=== PATIENT | female | born 1965 | race Caucasian/White ===

== ENCOUNTER 2019-12-15 10:11 | Emergency (ER) | payer OTHER, SELFPAY ==
--- NOTE | 2019-12-15 10:34 | XR_ITS ---
EXAMINATION: XR SHOULDER, RIGHT CLINICAL INFORMATION: Pain COMPARISON: None TECHNIQUE: Three views of the right shoulder. FINDINGS: There is no evidence of acute fracture or dislocation of the right shoulder. No evidence of calcific tendinitis. Glenohumeral joint appears unremarkable. No widening of the coracoid clavicular space. XR/XR shoulder RT min 2V IMPRESSION: No bony abnormality of the right shoulder identified.
[2019-12-15 10:47] VITALS: BP 143/79; PULSE 78; RESP 18; TEMP 36.7; O2SAT 100; BMI 22.1
[2019-12-15] MEDS: Ibuprofen 800 MG TABLET PO (10:55)
[2019-12-15] MEDS: diazePAM 5 MG TABLET PO (10:55)
--- NOTE | 2019-12-15 11:31 | ED.EXTPRO ---
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 States pain is alleviated with holding still. Denies any redness, rash, swelling, fever, radiation of the pain. No alteration in sensation and pain in the hand. Onset (ago): day(s) Pain Consistency: constant Location: right and upper extremity Radiation: none Relieving factors: cold therapy and immobilization Associated symptoms: denies other symptoms Context: recent travel Related Data Previous Rx's Medication Instructions Recorded cyclobenzaprine 10 mg PO TID PRN #20 tab 12/15/19 ibuprofen 800 mg PO Q8H PRN #30 tab 12/15/19 Allergies Allergy/AdvReac Type Severity Reaction Status Date / Time midazolam [From VERSED] Allergy Intermediate HYPERACTIVITY, Verified 12/15/19 10:13 increased hyperactivity hydromorphone [From Dilaudid] Allergy Unknown ITCHING Verified 12/15/19 10:13 Review of Systems Review of Systems: Constitutional: No Weight loss, No Fever, No Chills, No Night Sweats, No Fatigue, No Malaise ENT/Mouth: No Hearing loss, No Ear Pain, No Nasal Congestion Eyes: No Eye Pain, No Swelling Cardiovascular: No Chest Pain, No SOB, No Dyspnea on Exertion, No Orthopnea, No Edema, No Palpitations Respiratory: No Cough, No Sputum, No Wheezing, No Smoke Exposure, No Dyspnea Gastrointestinal: No Nausea, No Vomiting, No Diarrhea Genitourinary: no irregular bleeding, No Dysuria, No Urinary Frequency Skin: No Skin Lesions, No rash Neuro: No Weakness, No Numbness, No Paresthesias Psych: No Anxiety/Panic, No Depression Heme/Lymph: No Bruising, No Bleeding,No Lymphadenopathy Endocrine: No Polyuria, No Polydipsia, No Temperature Intolerance Yes all other systems are reviewed and are negative [facility] Past Medical History Attestation statement: The following information was validated with the patient. Medical History (Updated 12/15/19 @ 11:33 by Jef Sarmiento NP) ADHD Bipolar 1 disorder Celiac disease PTSD (post-traumatic stress disorder) Surgical History (Updated 12/15/19 @ 10:51 by Lynn Aguilar) H/O breast augmentation H/O: hysterectomy History of tonsillectomy Social History Social History Alcohol intake: never Smoking Status: Never smoker Smoked in Last 30 Days: No Use of substances other than those prescribed or required for medical reasons: No Advance Directives: No Advance Directives Information Provided: No Physical Exam Vital Signs: Vital Signs: Last Vital Signs Temp 98.0 F 12/15/19 10:47 Pulse 78 12/15/19 10:47 Resp 18 12/15/19 10:47 BP 143/79 H 12/15/19 10:47 Pulse Ox 100 12/15/19 10:47 Body Mass Index 22.1 Reviewed Const: General: cooperative and healthy appearing; No acute distress or intoxicated appearing Nutritional Appearance: average body habitus Orientation/consciousness: patient oriented x3 HENMT: Head: Yes normal to inspection Ears: hearing grossly normal bilaterally Eyes: General: appearance normal, both eyes and all related structures Visual Servin: normal visual servin by confrontation Neck: Neck: Yes normal visual inspection, No positive Brudzinski's sign, No positive Kernig's sign and No tender Thyroid: Thyroid normal Chest: Chest palpation & inspection: normal inspection of the chest Resp: Effort & Inspection: normal respiratory effort Cardio: Jugular venous distension: no JVD Skin: General skin exam: no rashes or lesions noted Neuro: General: patient oriented x3 Extrem: General: Yes normal to inspection Shoulder/upper arm images: 1. Pain diffusely to the shoulder with tender palpation. No erythema, swelling. Distally neurovascularly intact. No muscle bulging. Able to flex at and extend at the elbow joint. Pulses are within normal limits bilaterally. Skin turgor within normal limits. Cap refill under 2 seconds. MDM - Extremity (Nontraumatic) MDM Narrative Medical decision making narrative: Right shoulder strain versus rotator cuff injury less likely infectious, DVT, muscle rupture. Feels better after shoulder immobilizer. X-ray negative for acute fracture/tendonitis. [facility]. Discharge Plan Discharge Clinical Impression: Strain of shoulder, right Qualifiers: Encounter type: initial encounter Qualified Code(s): S46.911A - Strain of unspecified muscle, fascia and tendon at shoulder and upper arm level, right arm, initial encounter Patient Disposition: Home, Self-Care Instructions: Rotator Cuff Injury (ED), Shoulder Immobilizer (ED) Additional Instructions: Wear sling for comfort Ice, elevate, compresses Follow-up with Orthopedics as discussed [facility] Return if any concerns or worsening symptoms Thank you Prescriptions: New cyclobenzaprine 10 mg tablet 10 mg PO TID PRN (Reason: muscle spasm) Qty: 20 RF: 0 ibuprofen 800 mg tablet 800 mg PO Q8H PRN (Reason: pain) Qty: 30 RF: 0 Referrals: Esteban Downs MD [Physician] - 3 days Jonas Bazzi MD [Physician] - 1 week Stand Alone Forms: Work/School Release
== END 2019-12-15 11:54 | disposition home or self-care (01) ==
PROVIDERS: Emergency Provider Emergency Medicine; PCP Family Medicine
DX: S46.911A Strain of unspecified muscle, fascia and tendon at shoulder and upper arm level, right arm, initial encounter (principal); M25.511 Pain in right shoulder; X50.0XXA Overexertion from strenuous movement or load, initial encounter; X50.9XXA Other and unspecified overexertion or strenuous movements or postures, initial encounter; Y93.9 Activity, unspecified; Y92.239 Unspecified place in hospital as the place of occurrence of the external cause; Y99.0 Civilian activity done for income or pay
CPT/HCPCS: 73030; 99283; 99284

== ENCOUNTER 2019-12-26 16:58 | Outpatient (REF) | payer OTHER, SELFPAY ==
--- NOTE | 2019-12-26 | MM_ITS ---
EXAMINATION: MM SCREENING DIGITAL MAMMOGRAPHY, BILATERAL CLINICAL INFORMATION: Screening. Asymptomatic. Prior history benign right breast surgery 2009. Also prior history bilateral implants. The lifetime risk of breast cancer based on the Tyrer-Cuzick Model is 5%. COMPARISON: Mammography: 08/22/2018, 08/21/2017, 06/06/2016 TECHNIQUE: Digital mammography is performed in craniocaudal and mediolateral oblique views along with additional implant-displaced craniocaudal and implant-displaced mediolateral oblique views. Computer-aided detection (CAD) is performed for this exam. FINDINGS: There are scattered areas of fibroglandular density (ACR BI-RADS breast composition Category b). There are no significant masses, abnormal calcifications, or other abnormalities. No developing density. There are bilateral implants. The implant contours are smooth and similar to prior studies. MM/MM screening mammo implant BI IMPRESSION: No mammographic evidence of malignancy. ASSESSMENT: BI-RADS 1: Negative RECOMMENDATION: Routine annual mammography screening. This patient's information was entered into a reminder system with a target due date for their next mammogram.
== END 2019-12-26 16:59 | disposition home or self-care (01) ==
LOC: HO.MAMMO 16:58
PROVIDERS: PCP Family Medicine; Visit Provider Family Medicine
DX: Z12.31 Encounter for screening mammogram for malignant neoplasm of breast (principal)
CPT/HCPCS: 77067

== ENCOUNTER 2020-05-11 12:30 | Outpatient (REF) | payer OTHER, SELFPAY ==
--- NOTE | ~2020-05-11 | XR_ITS ---
EXAMINATION: XR ABDOMEN KUB CLINICAL INDICATION: Constipation COMPARISON: 04/30/2019 TECHNIQUE: AP view of the abdomen. FINDINGS: There is gas-filled appearance of bowel in the upper abdomen, with the appearance of a portion of the colon. No abnormally dilated loops of small bowel. Scattered stool throughout the colon with no significant abnormal colonic stool burden. Suture line seen in the right lower quadrant. The visualized lung bases are clear. No acute osseous abnormality. XR/XR KUB IMPRESSION: No significant abnormal colonic stool burden seen. There is prominent gas distending portions of the colon in the upper abdomen.
== END 2020-05-11 12:31 | disposition home or self-care (01) ==
LOC: HO.XRAY 12:30
PROVIDERS: PCP Family Medicine; Visit Provider Internal Medicine Gastroenterology
DX: K59.00 Constipation, unspecified (principal)
CPT/HCPCS: 74018

== ENCOUNTER 2020-08-31 06:36 | Outpatient (REF) | payer OTHER, SELFPAY ==
[2020-08-31 07:36] LABS: MANUAL DIFF FLAG NO
[2020-08-31 07:41] LABS: Basophils Absolute Auto 0.1 X10*3/uL (0.0-0.2); Basophils Percent Auto 0.7 % (0-2); Eosinophils Absolute Auto 0.2 X10*3/uL (0.0-0.4); Eosinophils Percent Auto 2.8 % (0-4); Hematocrit 39.1 % (37-47); Hemoglobin 12.4 g/dl (12.0-16.0); Imm Gran Abs Auto 0.01 X10*3/uL (0.00-0.03); Imm Gran Pct Auto 0.1 % (0.0-0.4); Lymphocytes Absolute Auto 2.3 X10*3/uL (1.2-4.9); Lymphocytes Percent Auto 32.1 % (20-40); Mean Corpuscular HGB Conc 31.7 g/dl (31.0-35.0); Mean Corpuscular Hemoglobin 31.6 pg (27.0-33.0); Mean Corpuscular Volume 99.7 fL (80-98); Mean Platelet Volume 9.7 fL (9.4-12.3); Monocytes Absolute Auto 0.6 X10*3/uL (0.1-1.2); Monocytes Percent Auto 7.8 % (2-11); Neutrophils Percent Auto 56.5 % (45-73); Platelet Count 285 X10*3/uL (160-400); Red Blood Count 3.92 X10*6/uL (4.20-5.50); Red Cell Distribution Width 12.3 % (11.0-16.0)
[2020-08-31 07:51] LABS: Lithium 1.24 mmol/L (0.60-1.20)
[2020-08-31 08:02] LABS: Alanine Aminotransferase 31 U/L (0-31); Albumin Level 4.3 g/dL (3.5-5.0); Alkaline Phosphatase 110 U/L (39-117); Anion Gap 10 (12-20); Aspartate Amino Transferase 24 U/L (5-31); Bilirubin Total 0.2 mg/dL (0.0-1.0); Blood Urea Nitrogen 13 mg/dL (9-16); Carbon Dioxide 29 mmol/L (22-29); Chloride 105 mmol/L (96-108); Cholesterol 168 mg/dL; Estimated Glomerular Filt Rate > 60; Glucose Fasting 86 mg/dL (60-99); HDL Cholesterol 57 mg/dL; LDL Cholesterol Calculated 86 mg/dl; Potassium 4.2 mmol/L (3.3-5.1); Sodium 140 mmol/L (135-145); Total Protein 6.6 g/dL (6.5-8.0); Triglycerides 128 mg/dL
[2020-08-31 08:15] LABS: TSH reflex Free T4 4.44 uIU/mL (0.32-4.0)
== END 2020-08-31 06:37 | disposition home or self-care (01) ==
LOC: HO.LAB 06:36
PROVIDERS: PCP Family Medicine; Visit Provider Family Medicine
DX: Z00.00 Encounter for general adult medical examination without abnormal findings (principal); F31.9 Bipolar disorder, unspecified
CPT/HCPCS: 36415; 80053; 80061; 80178; 84439; 84443; 85025

== ENCOUNTER 2021-03-11 15:09 | Outpatient (REF) | payer OTHER, SELFPAY ==
--- NOTE | ~2021-03-11 | MM_ITS ---
EXAMINATION: MM SCREENING DIGITAL BREAST TOMOSYNTHESIS, BILATERAL CLINICAL INFORMATION: Screening. Asymptomatic. The lifetime risk of breast cancer based on the Tyrer-Cuzick Model is 5.0%. COMPARISON: Mammography: December 26, 2019 and studies dating back to November 17, 2011 TECHNIQUE: Digital mammography is performed in craniocaudal and mediolateral oblique views along with computer-aided detection (CAD). Digital breast tomosynthesis is performed in implant-displaced craniocaudal and implant-displaced mediolateral oblique views along with computer-aided detection (CAD). Synthesized 2D images are generated from the tomosynthesis. FINDINGS: There are scattered areas of fibroglandular density (ACR BI-RADS breast composition Category b). There are no significant masses, abnormal calcifications, or other abnormalities. MM/MM tomosynthesis screen imp BI IMPRESSION: There are no significant changes from prior study. ASSESSMENT: BI-RADS 1: Negative RECOMMENDATION: Routine annual mammography screening. This patient's information was entered into a reminder system with a target due date for their next mammogram.
== END 2021-03-11 15:10 | disposition home or self-care (01) ==
LOC: HO.MAMMO 15:09
PROVIDERS: Visit Provider Family Medicine
DX: Z12.31 Encounter for screening mammogram for malignant neoplasm of breast (principal)
CPT/HCPCS: 77063; 77067

== ENCOUNTER 2021-05-25 12:08 | Outpatient (REF) | payer OTHER, SELFPAY ==
--- NOTE | ~2021-05-25 | XR_ITS ---
EXAMINATION: XR SACROILIAC JOINTS CLINICAL INFORMATION: Sacroiliitis COMPARISON: None TECHNIQUE: 3 views of the sacroiliac joints FINDINGS: Mild symmetric bilateral sclerotic changes around the SI joint suggesting mild sacroiliitis. Joint spaces remain patent. Adjacent bones are intact. XR/XR sacroiliac joint 1-2V IMPRESSION: Mild bilateral symmetric sacroiliitis.
== END 2021-05-25 12:09 | disposition home or self-care (01) ==
LOC: HO.XRAY 12:08
PROVIDERS: PCP Family Medicine; Visit Provider Family Medicine
DX: M46.1 Sacroiliitis, not elsewhere classified (principal)
CPT/HCPCS: 72200

== ENCOUNTER 2021-05-28 11:38 | Day surgery (SDC) | payer OTHER, SELFPAY ==
[2021-05-28 06:26] VITALS: BMI 23.9
[2021-05-28 11:44] VITALS: BP 129/90; PULSE 76; RESP 17; TEMP 36.3; O2SAT 98
--- NOTE | 2021-05-28 12:57 | P.CONAN_ITS ---
[facility] Active Problems Active Problems: All Active Problems (Updated 05/27/21 @ 11:07 by Juana Dill RN) Radicular pain of upper extremity (Acute ~12/2019) Adult general medical exam (Acute) Elevated TSH (Acute) Shortness of breath on exertion (Acute) Irritable bowel syndrome (Acute) Female cystocele (Acute) Screening for colon cancer (Acute) Screening for cervical cancer (Acute) Breast cancer screening by mammogram (Acute) Sacroiliitis (Acute) Hypercholesterolemia (Acute) Bipolar 1 disorder (Acute) Constipation by delayed colonic transit (Acute) Past Medical History Medical History ADHD Bipolar 1 disorder Celiac disease Constipation by delayed colonic transit History of cystocele Hypercholesterolemia Hypothyroid PTSD (post-traumatic stress disorder) Surgical History Surgical History H/O breast augmentation H/O: hysterectomy History of appendectomy History of breast augmentation History of tonsillectomy Hx of colonoscopy Hx of esophagogastroduodenoscopy History of Problems with Anesthesia: No Social History Social History Alcohol intake: never Patient Tobacco Use Status: Never used Tobacco Are you DNR?: No Advance Directives: No Advance Directives Information Provided: Yes Meds Allergies Allergy/AdvReac Type Severity Reaction Status Date / Time midazolam [From VERSED] Allergy Intermediate HYPERACTIVITY, Verified 04/26/21 15:32 increased hyperactivity hydromorphone [From Dilaudid] Allergy Unknown ITCHING Verified 04/26/21 15:32 Active Medications: Current Medications Sodium Biphosphate/Sodium Phosphate (Sodium Phosphate,Stokes-Dibasic 133 Ml Enema) 133 ml UT ONCE PRN PRN Reason: Poor Colonoscopy Prep Results Home Medications Medication Instructions Recorded Confirmed Last Taken Type valacyclovir 500 mg tablet 500 mg PO BID 12/25/19 Unknown History (Valtrex) dextroamphetamine-amphetamine ER 1 cap PO DAILY 11/06/20 Unknown History 30 mg 24hr capsule,extend release quetiapine 400 mg tablet 400 mg PO BEDTIME 11/06/20 Unknown History amitriptyline 25 mg tablet tab PO 05/27/21 Unknown History atomoxetine 60 mg capsule 1 cap PO QAM 05/27/21 05/27/21 Unknown History cholecalciferol (vitamin D3) 125 125 mcg PO DAILY 05/27/21 05/27/21 Unknown History mcg (5,000 unit) tablet (Vitamin D3) lithium carbonate 450 mg 1 tab PO BID 05/27/21 05/27/21 Unknown History tablet,extended release Exam Exam Date and Time: May 28, 2021 1257 Height,Weight and Vital Signs: Height 5 ft 3 in Weight 61.235 kg Last Vital Signs Temp 97.3 F 05/28/21 11:44 Pulse 76 05/28/21 11:44 Resp 17 05/28/21 11:44 BP 129/90 H 05/28/21 11:44 Pulse Ox 98 05/28/21 11:44 Airway Mallampati Class: II TM Dist: >3cm Neck ROM: Full Loose/Missing/Broken Teeth: No Heart: RRR Lungs: CTA Assessment and Plan Assessment Anesthesia Assessment: Anesthesia Plan Discussed and Chart Reviewed Final Anesthetic Review History of Problems with Anesthesia: No NPO: Yes ASA Class: II Final Preanesthetic Review: Meds/Allgs Chart Reviewed, Consent Obtained/Reviewed and Anes Risks/Benef Reviewed Patient Risk: Low Procedure Risk: Intermediate Anesthetic Plan Anesthetic Plan: MAC: Disposition: Standard PACU
[2021-05-28 16:37] VITALS: BP 117/67; PULSE 70; RESP 16; TEMP 36.1; O2SAT 98
--- NOTE | 2021-05-28 16:39 | PM.OP ---
Brief Operative Note Date of Service: 05/28/21 Pre-op diagnosis: GERD, abdominal pain, constipation Post-op diagnosis: other (R/O Celiac disease, Hiatal hernia, R/O EoE, R/O Microscopic colitis) Procedure: EGD with biopsies, Colonoscopy to ? Ascending colon with biopsies(Poor prep) Surgeon: Meng Wkaefield Anesthesia: MAC Was an Table Cover Folder used for this Procedure?: No Estimated blood loss (mL): 2.0 Pathology: other (A. Descending duodenum B. Gastric antrum C. EG Junction at 35cm D. Esophagus at 25cm E. Transverse colon) Condition: stable Disposition: PACU
[2021-05-28 16:52] VITALS: BP 104/65; PULSE 70; RESP 18; O2SAT 98
[2021-05-28 17:07] VITALS: BP 127/71; PULSE 85; RESP 18; O2SAT 98
[2021-05-28 17:22] VITALS: BP 127/73; PULSE 63; RESP 18; O2SAT 98
[2021-05-28 17:45] VITALS: TEMP 37
--- NOTE | 2021-05-28 17:56 | HO.POSTANES ---
Post Anesthesia Evaluation Post Anesthesia Evaluation Vital Signs: Vital Signs Temp Pulse Resp BP Pulse Ox 05/28/21 17:22 63 18 127/73 98 05/28/21 17:07 85 18 127/71 98 05/28/21 16:52 70 18 104/65 98 05/28/21 16:37 97.0 F 70 16 117/67 98 05/28/21 11:44 97.3 F 76 17 129/90 H 98 Anesthesia: Monitored Mental Status: Awake Pain Control: Satisfactory Nausea/Vomiting: None Hydration: Adequate Anesthesia-Related Issues: No Anes. Related Issues
--- NOTE | 2021-05-29 09:02 | OP_ITS ---
SURGEON: Meng Wakefield MD INDICATIONS: The patient presents for evaluation of questionable history of celiac disease, chronic abdominal discomfort with associated constipation, and colorectal cancer screening. Full consent has been obtained from her for this, including risks of bleeding and perforation. PREOPERATIVE DIAGNOSIS: POSTOPERATIVE DIAGNOSIS: PROCEDURE PERFORMED: Esophagogastroduodenoscopy with biopsies and colonoscopy to the region of probably the ascending colon with biopsies. ESTIMATED BLOOD LOSS: COMPLICATIONS: ANESTHESIA: medication used, monitored anesthesia care. ASSISTANTS: SPECIMENS: PREOPERATIVE DIAGNOSES: Abdominal discomfort, gastroesophageal reflux, question of celiac disease, rule out microscopic colitis,incomplete colonoscopy with associated poor prep. DESCRIPTION OF PROCEDURE: The patient was placed in the left lateral decubitus position. The Olympus video gastroscope was passed into the posterior oropharynx and upper esophagus under direct vision. The scope was passed slowly to the distal esophagus. The gastroesophageal junction appeared at 35 cm. The entire esophagus appeared normal without any sign of proximal nor distal esophageal rings nor stricture. There was no esophagitis nor Lemons's esophagus. The gastroesophageal junction appeared normal, without any sign of Lemons's mucosa. The scope was entered into the stomach. There was a small hiatal hernia. The scope was advanced to the pylorus, and the duodenum was cannulated to the descending portion. The duodenum including the bulb appeared normal without mass or ulceration. The duodenal folds appeared normal. Multiple biopsies were obtained in the 2nd and 3rd portions of duodenum. The scope was withdrawn back to the stomach. The gastric antrum and body appeared normal with good peristalsis. The scope was retroflexed visualizing the proximal stomach carefully, which appeared normal, without any sign of mass or ulceration. The scope was straightened. Biopsies were obtained from the gastric antrum. The scope was withdrawn back in the esophagus. Biopsies were obtained at the EG junction at 35 cm. Proximal to this the esophageal mucosa appeared normal.as well. There was no evidence of any proximal esophageal rings. Biopsies were obtained at 25 cm. The scope was then withdrawn from the patient she was turned around for the colonoscopy. The digital rectal exam revealed some mildly diminished sphincter tone, but no other abnormalities. The Olympus video pediatric colonoscope was then entered into the rectum and advanced to what I felt was ultimately the area of the ascending colon. However, the procedure was quite lengthy in time in relation to a lot of liquid and some solid debris. Despite abdominal wall pressure, I could not advance to the cecum. The colon itself appeared to be quite redundant, tortuous, and with diminished peristalsis.. Again, there was a great deal of liquid and some solid stool, which caused a lot of clogging of the scope requiring significant amounts of irrigation and suctioning which was quite frequent and time consuming.. Needless to say, the procedure was very lengthy in duration. Ultimately, I felt that was the scope in the ascending colon, but was never entirely certain of that. I definitely was not able to reach the cecum, although at times there was transillumination of light deep in the right lower quadrant. The poor prep definitely limited visualization, I did not visualize any sign of significant lesions nor mucosal abnormalities as the scope was withdrawn. Biopsies were obtained in what I felt was probably the transverse colon. I did not appreciate any significant diverticular disease, although again the prep was quite poor. In the rectum, I was able to retroflex visualizing some internal hemorrhoids, but no other pathology. The rectal mucosa appeared normal. The scope was straightened and withdrawn from the patient. She tolerated both procedures well and was returned to the recovery area in stable condition. IMPRESSION: 1. Small hiatal hernia, otherwise basically normal upper endoscopy. Biopsies taken to rule out celiac disease, H pylori, and eosinophilic esophagitis. 2. Very redundant colon with poor prep and with diminished peristalsis seen throughout the colon. The colon did appear somewhat distended. Therefore, I think we are dealing with colonic inertia as a cause of her long-standing constipation. As such, this may be a difficult problem to treat as she is already not responding to significant bowel regimens with laxatives. PLAN: My plan will be to try to obtain a SITZ marker study in Radiology to further assess for colonic inertia. She already has an appointment with the colorectal surgeons at [facility] to consider further evaluation with a fecal defecography study. She may ultimately need some type of surgical procedure to help alleviate this long-standing constipation and problem with her bowel movements. She clearly is on multiple medications that might contribute to GI tract motility disturbance, but she does need those from a mental health standpoint. This has all been discussed with the patient and her ex-, but still her significant other. MD RUBA Rodriguez/LELE / [phone] YVON
== END 2021-05-28 18:25 | disposition home or self-care (01) ==
PROVIDERS: PCP Family Medicine; Visit Provider Internal Medicine
PROC: (CPT 45380; principal; 2021-05-28 12:30)
DX: Z12.11 Encounter for screening for malignant neoplasm of colon (principal); K90.0 Celiac disease; K64.8 Other hemorrhoids; K63.89 Other specified diseases of intestine; R10.9 Unspecified abdominal pain; R13.14 Dysphagia, pharyngoesophageal phase; K21.9 Gastro-esophageal reflux disease without esophagitis; K44.9 Diaphragmatic hernia without obstruction or gangrene; E03.9 Hypothyroidism, unspecified; E78.00 Pure hypercholesterolemia, unspecified; N81.10 Cystocele, unspecified; F31.9 Bipolar disorder, unspecified; F90.9 Attention-deficit hyperactivity disorder, unspecified type; F43.10 Post-traumatic stress disorder, unspecified; Z79.899 Other long term (current) drug therapy
CPT/HCPCS: 45380; 43239; 88305; 88342; J1100; J2250

== ENCOUNTER 2021-06-03 10:06 | Outpatient (REF) | payer OTHER, SELFPAY ==
--- NOTE | ~2021-06-03 | XR_ITS ---
EXAMINATION: XR ABDOMEN KUB CLINICAL INDICATION: Slow transit. Constipation. COMPARISON: None TECHNIQUE: AP view of the abdomen. FINDINGS: There is scattered stool and gas seen throughout the colon suggestive of constipation. The small bowel loops are normal caliber. There is no organomegaly. No radiopaque calculi. No gross bony abnormality. XR/XR KUB IMPRESSION: Moderate constipation.
[2021-06-03 10:19] LABS: MANUAL DIFF FLAG NO
[2021-06-03 11:02] LABS: Basophils Percent Auto 0.7 % (0-2); Eosinophils Absolute Auto 0.2 X10*3/uL (0.0-0.4); Eosinophils Percent Auto 2.6 % (0-4); Hematocrit 37.5 % (37.0-47.0); Hemoglobin 12.3 g/dl (12.0-16.0); Imm Gran Abs Auto 0.02 X10*3/uL (0.00-0.03); Imm Gran Pct Auto 0.3 % (0.0-0.4); Lymphocytes Absolute Auto 1.8 X10*3/uL (1.2-4.9); Lymphocytes Percent Auto 30.4 % (20-40); Mean Corpuscular HGB Conc 32.8 g/dl (31.0-35.0); Mean Corpuscular Hemoglobin 32.5 pg (27.0-33.0); Mean Corpuscular Volume 98.9 fL (80.0-98.0); Mean Platelet Volume 9.5 fL (9.4-12.3); Monocytes Absolute Auto 0.4 X10*3/uL (0.1-1.2); Monocytes Percent Auto 6.2 % (2-11); Neutrophils Absolute Auto 3.5 x10*3/uL (2.0-8.3); Neutrophils Percent Auto 59.8 % (45-73); Platelet Count 272 X10*3/uL (160-400); Red Blood Count 3.79 X10*6/uL (4.20-5.50); Red Cell Distribution Width 12.3 % (11.0-16.0); White Blood Count 5.8 X10*3/uL (4.8-10.8)
[2021-06-03 12:01] LABS: Alanine Aminotransferase 16 U/L (0-31); Albumin Level 4.4 g/dL (3.5-5.0); Alkaline Phosphatase 115 U/L (39-117); Aspartate Amino Transferase 16 U/L (5-31); Bilirubin Direct < 0.2 mg/dL (0.0-0.5); Bilirubin Total 0.2 mg/dL (0.0-1.0); Total Protein 6.9 g/dL (6.5-8.0)
[2021-06-03 12:06] LABS: TSH reflex Free T4 1.17 uIU/mL (0.32-4.0)
[2021-06-05 11:32] LABS: Immunoglobulin A 138 mg/dL (47-310)
[2021-06-07 23:01] LABS: Gliadin Deamidated IgA Ab 1.2 U/mL; Gliadin Deamidated IgG Ab 1.3 U/mL; Transglutaminase Ab IgG <1.0 U/mL; Transglutaminase IgA <1.0 U/mL
[2021-06-09 13:56] LABS: Endomysial IgA Antibody Negative (Negative)
== END 2021-06-03 10:07 | disposition home or self-care (01) ==
LOC: HO.XRAY 10:06
PROVIDERS: PCP Family Medicine; Visit Provider Internal Medicine
DX: K59.01 Slow transit constipation (principal)
CPT/HCPCS: 36415; 74018; 80076; 82784; 84443; 85025; 86231; 86258; 86364

== ENCOUNTER 2021-06-04 11:56 | Outpatient (REF) | payer OTHER, SELFPAY ==
--- NOTE | ~2021-06-04 | XR_ITS ---
EXAMINATION: XR ABDOMEN KUB CLINICAL INDICATION: Sitz marker study. Slow-transit constipation. COMPARISON: Previous KUB from earlier this month. TECHNIQUE: AP view of the abdomen. FINDINGS: There are approximately 25 Sitz markers seen. Two markers are seen projecting over the distal right colon or hepatic flexure. The remainder of the Sitz markers are in the left colon or proximal sigmoid colon. There is stool throughout the colon suggestive of constipation. There is a gas-filled loop of bowel in the left mid abdomen. There is no evidence of free air. XR/XR KUB IMPRESSION: Constipation. 25 Sitz markers are seen on day 3 suggestive of slow transit. Follow-up exam on or after day 5 recommended.
== END 2021-06-04 11:57 | disposition home or self-care (01) ==
LOC: HO.XRAY 11:56
PROVIDERS: PCP Family Medicine; Visit Provider Internal Medicine
DX: Z13.89 Encounter for screening for other disorder (principal)

== ENCOUNTER 2021-06-07 10:34 | Outpatient (REF) | payer OTHER, SELFPAY | END 2021-06-07 10:35 | disposition home or self-care (01) | LOC: HO.XRAY 10:34 | PROVIDERS: PCP Family Medicine; Visit Provider Internal Medicine | DX: K59.01 Slow transit constipation (principal) | CPT/HCPCS: 74018 ==

== ENCOUNTER 2021-06-09 08:51 | Outpatient (REF) | payer OTHER, SELFPAY ==
--- NOTE | ~2021-06-09 | XR_ITS ---
EXAMINATION: XR ABDOMEN KUB CLINICAL INDICATION: Constipation, Sitz markers. COMPARISON: 06/07/2021 abdominal radiograph. TECHNIQUE: AP view of the abdomen. FINDINGS: Multiple Sitz markers are seen as follows: 1. Cecum: 0 2. Ascending colon: 1 3. Distal Transverse/Descending colon: 22 4. Prox sigmoid colon: 1 5. Distal sigmoid/rectum: 0 Total: 0 Again, there is a non-obstructive bowel gas pattern. Moderate stool seen throughout the colon. The osseous structures show no abnormality. XR/XR KUB IMPRESSION: 24 Sitz markers visualized system with slow transit. Persistent moderate colonic stool burden.
== END 2021-06-09 08:52 | disposition home or self-care (01) ==
LOC: HO.XRAY 08:51
PROVIDERS: PCP Family Medicine; Visit Provider Internal Medicine
DX: K59.00 Constipation, unspecified (principal)
CPT/HCPCS: 74018

== ENCOUNTER 2021-06-11 10:09 | Outpatient (REF) | payer OTHER, SELFPAY ==
--- NOTE | ~2021-06-11 | XR_ITS ---
EXAMINATION: XR ABDOMEN KUB CLINICAL INDICATION: Slow transit, constipation. COMPARISON: None TECHNIQUE: AP view of the abdomen. FINDINGS: There is moderate stool seen throughout the colon without any significant distention. There is no organomegaly. No radiopaque renal or gallbladder calculi seen. There are multiple radiopaque Sitz markers, approximately 20 within the redundant sigmoid colon. XR/XR KUB IMPRESSION: At least 20 Sitz markers are seen within the redundant sigmoid colon.
== END 2021-06-11 10:10 | disposition home or self-care (01) ==
LOC: HO.XRAY 10:09
PROVIDERS: PCP Family Medicine; Visit Provider Internal Medicine
DX: K59.01 Slow transit constipation (principal)
CPT/HCPCS: 74018

== ENCOUNTER 2021-07-03 08:22 | Outpatient (REF) | payer OTHER, SELFPAY ==
[2021-07-03 08:48] LABS: MANUAL DIFF FLAG NO
[2021-07-03 09:46] LABS: Basophils Absolute Auto 0.1 X10*3/uL (0.0-0.2); Basophils Percent Auto 0.8 % (0-2); Eosinophils Absolute Auto 0.2 X10*3/uL (0.0-0.4); Eosinophils Percent Auto 3.3 % (0-4); Hematocrit 37.4 % (37.0-47.0); Imm Gran Abs Auto 0.02 X10*3/uL (0.00-0.03); Imm Gran Pct Auto 0.3 % (0.0-0.4); Lymphocytes Absolute Auto 1.7 X10*3/uL (1.2-4.9); Lymphocytes Percent Auto 26.1 % (20-40); Mean Corpuscular HGB Conc 32.1 g/dl (31.0-35.0); Mean Corpuscular Hemoglobin 31.8 pg (27.0-33.0); Mean Corpuscular Volume 99.2 fL (80.0-98.0); Mean Platelet Volume 9.4 fL (9.4-12.3); Monocytes Absolute Auto 0.5 X10*3/uL (0.1-1.2); Monocytes Percent Auto 7.7 % (2-11); Neutrophils Absolute Auto 3.9 x10*3/uL (2.0-8.3); Neutrophils Percent Auto 61.8 % (45-73); Platelet Count 253 X10*3/uL (160-400); Red Blood Count 3.77 X10*6/uL (4.20-5.50); Red Cell Distribution Width 12.4 % (11.0-16.0); White Blood Count 6.3 X10*3/uL (4.8-10.8)
[2021-07-03 09:59] LABS: Appearance Urine CLEAR; Color Urine YELLOW; Glucose Urine UA NEG (NEG); Leukocyte Esterase Urine NEG (NEG); Nitrite Urine NEG (NEG); PH 6.5 (5.0-8.0); Urine Blood NEG (NEG); Urine Ketones NEG (NEG); Urine Protein NEG (NEG-TRACE)
[2021-07-03 10:14] LABS: Anion Gap 9 (12-20); Blood Urea Nitrogen 9 mg/dL (9-16); Calcium 10.1 mg/dL (8.4-10.2); Carbon Dioxide 27 mmol/L (22-29); Chloride 106 mmol/L (96-108); Estimated Glomerular Filt Rate > 60; Glucose Random 98 mg/dL (60-115); Potassium 4.1 mmol/L (3.3-5.1); Sodium 138 mmol/L (135-145)
== END 2021-07-03 08:23 | disposition home or self-care (01) ==
LOC: HO.LAB 08:22
PROVIDERS: PCP Family Medicine; Visit Provider Urology
DX: N39.0 Urinary tract infection, site not specified (principal); N81.11 Cystocele, midline
CPT/HCPCS: 36415; 80048; 81003; 85025; 87086

== ENCOUNTER → 2021-07-06 10:16 | Outpatient (REF) | payer OTHER, SELFPAY ==
--- NOTE | 2021-07-06 10:18 | ECG_ITS ---
Test Reason : n81.11 Blood Pressure : / mmHG Vent. Rate : 069 BPM Atrial Rate : 069 BPM P-R Int : 178 ms QRS Dur : 088 ms QT Int : 440 ms P-R-T Axes : 056 041 064 degrees QTc Int : 471 ms Normal sinus rhythm Normal ECG When compared with ECG of 20-APR-2019 16:19, Nonspecific T wave abnormality, improved in Anterolateral leads Referred By: Cabrera Latham Electronically Signed By:ABIMAEL CARPIO MD
== END ==
LOC: HO.CARD 10:16
PROVIDERS: PCP Family Medicine; Visit Provider Urology
DX: N81.11 Cystocele, midline (principal)
CPT/HCPCS: 93005

== ENCOUNTER 2021-07-06 15:00 | Outpatient (RCR) | payer OTHER, SELFPAY ==
--- NOTE | 2021-05-25 17:15 | MHC.PT.EP ---
[facility] [place] [facility] [place] [facility] [place] Office [address] Faby Snyder [address] [phone] F: [phone] F: [phone] F: [phone] F: [phone] Physical Therapy Plan of Care Date of Evaluation: Date of Surgery: N/A Diagnosis: sacroilitis Assessment: pt's signs and symptoms consistent w/ SI dysfunction. pt also reported symptoms consistent w/ pelvic organ prolapse and would benefit from referral to pelvic floor PT to address these symptoms. pt's low back pain may also have pelvic floor component d/t weakness and poor load transfer. pt presents to physical therapy with pain, decreased range of motion, decreased strength, impaired functional mobility, impaired postural awareness, and gait deviations. pt is a good candidate for skilled PT due to age, potential remediation of impairments, typical disease/condition progression and prognosis, comorbidities, and motivation. pt would benefit from tailored strengthening and stretching exercise program, functional training, gait training, postural re-training, neuromuscular re-education, modalities as needed for pain, equipment safety demonstration. Frequency and Duration: The patient will be seen 2x/wk for 4 wks Short Term Goals: pt will be I w/ HEP to promote self-management of condition. pt will demo proper sitting posture w/ lumbar roll to promote neutral spine. Correction Goals: pt will report a statistically significant improvement in self-reported outcome measure, Gene, to promote return to PLOF. 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 Treatment Plan: Modalities to reduce pain, spasms and effusion. Manual therapy to restore motion and function. Therapeutic exercise to improve strength and flexibility. Neuromuscular re-education for posture and balance. Therapeutic activities to return to functional activities of daily living. Electronically signed by: Jacqui Zhu PT, DPT Please sign and return to therapist. Thank you for your referral.
--- NOTE | 2021-07-08 10:32 | MHC.PT.DC ---
[facility] [place] [facility] [place] [facility] [place] [facility] [address] Faby Snyder 140 [facility] [phone] F: [phone] F: [phone] F: [phone] F: [phone] Physical Therapy Discharge Report Diagnosis: sacroilitis Date of Surgery: N/A Date of Evaluation: 05/25/21 Date of Discharge: 07/08/21 Treatments to Date: 9 Cancellations to Date: 1 No Shows to Date: 0 Discharge Status: Improved Function Independent with HEP Discharge Summary: The patient overall feels this bout of physical therapy has helped with her back pain. She is independent with her home exercise program including modifications to be mindful of her pelvic organ prolapse. She is having a surgery to repair her pelvic organ prolapse as well as a bladder sling. The patient had the opportunity to ask questions and feels she is independent with management of her back pain. The plan is to have a second referral sent after her pelvic surgery to address pelvic floor weakness. She is discharged from this physical therapy plan of care to her [facility] at this time. Electronically signed by: Jacqui Zhu PT, DPT Please sign and return to therapist. Thank you for your referral.
== END 2021-07-08 10:33 | disposition home or self-care (01) ==
LOC: HO.PT 15:00
PROVIDERS: PCP Family Medicine; Visit Provider Family Medicine
DX: M46.1 Sacroiliitis, not elsewhere classified (principal)
CPT/HCPCS: 97110; 97162; 97530

== ENCOUNTER 2021-10-21 10:13 | Outpatient (REF) | payer OTHER, SELFPAY ==
--- NOTE | ~2021-10-21 | XR_ITS ---
EXAMINATION: XR ABDOMEN COMPLETE CLINICAL INDICATION: Constipation and abdominal distention COMPARISON: KUB 06/11/2021 TECHNIQUE: 2 views of the abdomen. FINDINGS: A moderate stool burden is present in the colon and with some air-fluid levels noted on the right as well as in the transverse colon. No gaseous distention is seen of small bowel. However, since multiple small bowel loops are visualized containing fluid the largest possibly measuring about 4 cm. No unusual calcifications are seen. No osseous abnormality. . XR/XR abdomen min 2V IMPRESSION: Moderate stool burden in colon and with air-fluid levels seen in the transverse colon and right colon. Fluid-filled mildly dilated small bowel loops. No evidence of bowel obstruction.
--- NOTE | ~2021-10-21 | CT_ITS ---
EXAMINATION: CT ABDOMEN AND PELVIS WITHOUT CONTRAST CLINICAL INFORMATION: Constipation COMPARISON: KUB same day, CT abdomen pelvis 04/23/2019 TECHNIQUE: Multidetector volumetric imaging was performed from the superior aspect of the liver through the pubic symphysis. Sagittal and coronal reformatted images were obtained on the technologist's workstation. This CT examination was performed using dose optimization techniques as appropriate, variously including the following: *Automated exposure control *Adjustment of mA and/or kV according to patient size (this includes techniques or standardized protocols for targeted exams where dose is matched to indication/reason for exam; i.e. extremities or head) *Use of iterative reconstruction technique DLP: 388 mGy-cm FINDINGS: LUNG BASES: Bilateral breast prostheses are present. Lingular atelectasis is seen. No pleural effusions are present. LIVER, GALLBLADDER, AND BILIARY TREE: The liver is normal in size, shape, and attenuation. Multiple hypodensities are seen consistent with cysts better seen on the prior contrast-enhanced study. No worrisome solid focal hepatic lesion or biliary ductal dilatation is present. The gallbladder is unremarkable with no evidence of radiopaque gallstones, gallbladder wall thickening, or obvious pericholecystic inflammatory changes. PANCREAS: Unremarkable. SPLEEN: Unremarkable. ADRENAL GLANDS: Unremarkable. KIDNEYS AND URETERS: The kidneys are normal in size, shape, and attenuation. No hydronephrosis, hydroureter, or calculi seen. No perinephric stranding. BLADDER: Unremarkable. GASTROINTESTINAL TRACT: There is a large amount of solid stool present in the entire left colon. The transverse colon and right colon contain fluid with some air-fluid levels. The appendix has been removed. Small bowel is of normal caliber ABDOMINAL WALL: No significant hernia is appreciated. LYMPH NODES: Shotty retroperitoneal lymph nodes are seen but there is no gross retroperitoneal lymphadenopathy. VASCULAR: Unremarkable. PELVIC VISCERA: Surgically removed. OSSEOUS STRUCTURES: Unremarkable. CT/CT abdomen pelvis wo IV con IMPRESSION: Large stool burden throughout the entire left with dilated transverse and ascending colon containing predominantly fluid. The small bowel is not dilated. Other incidental findings as described above Fleischner guidelines were followed.
--- NOTE | ~2021-10-21 | FL_ITS ---
EXAMINATION: XR BARIUM ENEMA CLINICAL INFORMATION: Constipation abdominal distention. COMPARISON: None TECHNIQUE: Fluoroscopy-guided Gastrografin enema was performed. Approximately 200 mL of Gastrografin diluted with saline was injected as thousand mL volume. FINDINGS: The Gastrografin extends into the left transverse colon. The rectum, entire redundant sigmoid, descending and the left transverse colon is distended with moderate stool. On postevacuation images there is no signal change in the distended sigmoid, descending and the left assess:. Findings most suggestive of a enteric colon with no peristalsis present. FLUOROSCOPY TIME: 3.9 minutes DOSE AREA PRODUCT: 87.508 uGy-m2 (microgray-meter squared) FL/FL barium enema IMPRESSION: Findings strongly suspicious for cathartic colon with no peristalsis visualized. There is no free air or extravasation of Gastrografin. Results were conveyed to referring physician Dr. Meng Wakefield after the exam.
[2021-10-21] MEDS: Diatrizoate Meglumine, Sodium 120 ML SOLUTION 720 ML PR (16:23)
== END 2021-10-21 10:14 | disposition home or self-care (01) ==
LOC: HO.XRAY 10:13
PROVIDERS: PCP Family Medicine; Visit Provider Internal Medicine
DX: K59.00 Constipation, unspecified (principal); R14.0 Abdominal distension (gaseous); R93.5 Abnormal findings on diagnostic imaging of other abdominal regions, including retroperitoneum
CPT/HCPCS: 74019; 74176; 74270

== ENCOUNTER 2022-01-17 07:05 | Outpatient (REF) | payer OTHER, SELFPAY ==
[2022-01-17 07:27] LABS: MANUAL DIFF FLAG NO
[2022-01-17 07:43] LABS: Basophils Absolute Auto 0.1 X10*3/uL (0.0-0.2); Eosinophils Absolute Auto 0.2 X10*3/uL (0.0-0.4); Eosinophils Percent Auto 3.9 % (0-4); Hematocrit 38.4 % (37.0-47.0); Hemoglobin 12.4 g/dl (12.0-16.0); Imm Gran Abs Auto 0.01 X10*3/uL (0.00-0.03); Imm Gran Pct Auto 0.2 % (0.0-0.4); Lymphocytes Absolute Auto 1.7 X10*3/uL (1.2-4.9); Lymphocytes Percent Auto 29.3 % (20-40); Mean Corpuscular HGB Conc 32.3 g/dl (31.0-35.0); Mean Corpuscular Hemoglobin 31.6 pg (27.0-33.0); Mean Corpuscular Volume 97.7 fL (80.0-98.0); Mean Platelet Volume 9.1 fL (9.4-12.3); Monocytes Absolute Auto 0.5 X10*3/uL (0.1-1.2); Neutrophils Absolute Auto 3.4 x10*3/uL (2.0-8.3); Neutrophils Percent Auto 57.6 % (45-73); Platelet Count 281 X10*3/uL (160-400); Red Blood Count 3.93 X10*6/uL (4.20-5.50); Red Cell Distribution Width 12.5 % (11.0-16.0); White Blood Count 5.9 X10*3/uL (4.8-10.8)
[2022-01-17 08:09] LABS: Lithium 1.05 mmol/L (0.60-1.20)
[2022-01-17 08:28] LABS: Estimated Average Glucose 103 mg/dL; Hemoglobin A1c % 5.2 %
[2022-01-17 08:40] LABS: Alanine Aminotransferase 22 U/L (0-31); Albumin Level 4.4 g/dL (3.5-5.0); Alkaline Phosphatase 106 U/L (39-117); Anion Gap 10 (12-20); Aspartate Amino Transferase 19 U/L (5-31); Bilirubin Total 0.3 mg/dL (0.0-1.0); Blood Urea Nitrogen 11 mg/dL (9-16); Calcium 9.9 mg/dL (8.4-10.2); Carbon Dioxide 27 mmol/L (22-29); Chloride 106 mmol/L (96-108); Cholesterol 161 mg/dL; Estimated Glomerular Filt Rate > 60; Free T4 (Free Thyroxine) 0.96 ng/dL (0.71-1.85); Glucose Random 90 mg/dL (60-115); HDL Cholesterol 55 mg/dL; LDL Cholesterol Calculated 73 mg/dl; Sodium 139 mmol/L (135-145); Thyroid Stimulating Hormone 4.19 uIU/mL (0.32-4.0); Total Protein 6.5 g/dL (6.5-8.0); Triglycerides 165 mg/dL
== END 2022-01-17 07:06 | disposition home or self-care (01) ==
LOC: HO.LAB 07:05
PROVIDERS: PCP Family Medicine; Visit Provider Nurse Practitioner Psychiatric/Mental Health
DX: Z79.899 Other long term (current) drug therapy (principal)
CPT/HCPCS: 36415; 80053; 80061; 80178; 83036; 84439; 84443; 85025

== ENCOUNTER 2022-03-17 14:42 | Outpatient (REF) | payer OTHER, SELFPAY ==
--- NOTE | ~2022-03-17 | MM_ITS ---
EXAMINATION: MM SCREENING DIGITAL BREAST TOMOSYNTHESIS, BILATERAL CLINICAL INFORMATION: Screening. Asymptomatic. The lifetime risk of breast cancer based on the Tyrer-Cuzick Model is 5%. COMPARISON: Mammography: March 11, 2021 and studies dating back to February 21, 2014 TECHNIQUE: Digital mammography is performed in craniocaudal and mediolateral oblique views along with computer-aided detection (CAD). Digital breast tomosynthesis is performed in implant-displaced craniocaudal and implant-displaced mediolateral oblique views along with computer-aided detection (CAD). Synthesized 2D images are generated from the tomosynthesis. FINDINGS: There are scattered areas of fibroglandular density (ACR BI-RADS breast composition Category b). There are no new significant masses, abnormal calcifications, or other abnormalities. There are few stable circumscribed densities bilaterally. Implants appear grossly intact. MM/MM tomosynthesis screen imp BI IMPRESSION: There are no significant changes from prior study. ASSESSMENT: BI-RADS 2: Benign RECOMMENDATION: Routine annual mammography screening. This patient's information was entered into a reminder system with a target due date for their next mammogram.
== END 2022-03-17 14:43 | disposition home or self-care (01) ==
LOC: HO.MAMMO 14:42
PROVIDERS: PCP Family Medicine; Visit Provider Family Medicine
DX: Z12.31 Encounter for screening mammogram for malignant neoplasm of breast (principal)
CPT/HCPCS: 77063; 77067

== ENCOUNTER 2022-07-29 06:45 | Outpatient (REF) | payer OTHER, SELFPAY ==
[2022-07-29 08:00] LABS: Alanine Aminotransferase 18 U/L (0-31); Albumin Level 4.3 g/dL (3.5-5.0); Alkaline Phosphatase 106 U/L (39-117); Anion Gap 9 (12-20); Aspartate Amino Transferase 18 U/L (5-31); Bilirubin Total 0.7 mg/dL (0.0-1.0); Blood Urea Nitrogen 14 mg/dL (9-16); Carbon Dioxide 27 mmol/L (22-29); Chloride 108 mmol/L (96-108); Cholesterol 175 mg/dL; Estimated Glomerular Filt Rate > 60; Glucose Fasting 92 mg/dL (60-99); Glucose Random 92 mg/dL (60-115); HDL Cholesterol 57 mg/dL; LDL Cholesterol Calculated 86 mg/dl; Potassium 3.7 mmol/L (3.3-5.1); Sodium 140 mmol/L (135-145); Total Protein 6.8 g/dL (6.5-8.0); Triglycerides 163 mg/dL
[2022-07-29 08:06] LABS: Lithium 1.05 mmol/L (0.60-1.20)
[2022-07-29 08:16] LABS: Thyroid Stimulating Hormone 4.52 uIU/mL (0.32-4.0)
== END 2022-07-29 06:46 | disposition home or self-care (01) ==
LOC: HO.LAB 06:45
PROVIDERS: PCP Family Medicine; Visit Provider Psychiatry & Neurology Psychiatry
DX: F31.32 Bipolar disorder, current episode depressed, moderate (principal); Z79.899 Other long term (current) drug therapy
CPT/HCPCS: 36415; 80053; 80061; 80178; 82947; 84443

== ENCOUNTER → 2023-03-21 16:00 | Outpatient (BNV) | payer OTHER, SELFPAY | PROVIDERS: Visit Provider Radiology Diagnostic Radiology | DX: Z12.31 Encounter for screening mammogram for malignant neoplasm of breast (principal) | CPT/HCPCS: 77063; 77067 ==

== ENCOUNTER 2023-03-21 16:11 | Outpatient (REF) | payer OTHER, SELFPAY ==
--- NOTE | ~2023-03-21 | MM_ITS ---
EXAMINATION: MM SCREENING DIGITAL BREAST TOMOSYNTHESIS, BILATERAL CLINICAL INFORMATION: Screening. Asymptomatic. COMPARISON: Mammography: This study is compared with the prior mammograms dating back to 2019. TECHNIQUE: Digital mammography is performed in craniocaudal and mediolateral oblique views along with computer-aided detection (CAD). Digital breast tomosynthesis is performed in implant-displaced craniocaudal and implant-displaced mediolateral oblique views along with computer-aided detection (CAD). Synthesized 2D images are generated from the tomosynthesis. FINDINGS: There are scattered areas of fibroglandular density (ACR BI-RADS breast composition Category b). There are bilateral, mammographically intact, retropectoral silicone breast implants. There are no significant masses, abnormal calcifications, or other abnormalities. MM/MM tomosynthesis screen imp BI IMPRESSION: There are no significant changes from prior study. ASSESSMENT: BI-RADS BI-RADS 1 - Negative RECOMMENDATION: Routine annual mammography screening. 1 year F/U This patient's information was entered into a reminder system with a target due date for their next mammogram.
== END 2023-03-21 16:12 | disposition home or self-care (01) ==
LOC: HO.MAMMO 16:11
PROVIDERS: Visit Provider Family Medicine
DX: Z12.31 Encounter for screening mammogram for malignant neoplasm of breast (principal)
CPT/HCPCS: 77063; 77067

== ENCOUNTER 2023-04-21 15:56 | Outpatient (AMB) | payer OTHER, SELFPAY ==
--- NOTE | 2023-04-21 15:57 | MHC.PC.OV ---
Vital Signs 04/21/23 15:59 Height 5 ft 3 in Weight 143 lb BMI 25.3 BP 112/64 Blood Pressure Location Lt brachial Position Sitting Pulse 79 Pulse Source Pulse Oximeter Pulse Oximetry (%) 99 Oxygen Delivery Method Room Air Intake Visit Reasons: CPE Intake Note: Rosa is here for CPE, no concerns. Information Interpreted: non-clinical & clinical Accompanied by: Self / Same As Patient Allergies midazolam [From VERSED] Allergy (Intermediate, Verified 04/21/23 16:03) HYPERACTIVITY, increased hyperactivity hydromorphone [From Dilaudid] Allergy (Unknown, Verified 04/21/23 16:03) ITCHING Tobacco use date assessed: 04/21/23 Dental Screening Dental Screen Date: 04/21/23 Did you have a dental visit in the last 12 months?: No Did you have a dental problem in the last 6 months where you did not have access to dental care?: No Was dental information given to patient?: Patient has dentist HPI CPE HPI Details 57 y/o female presents for a CPE with f/u labs and health maintenance. No recent labs to review. Had hx of elevated TSH. She reports some fatigue as she frequently feels the need to go to bed at 7 at night. Pt reports tinnitus bilateral ears. 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 1. Little interest or pleasure in doing things: not at all 2. Feeling down, depressed, or hopeless: not at all 3. Trouble falling or staying asleep, or sleeping too much: not at all 4. Feeling tired or having little energy: not at all 5. Poor appetite or overeating: not at all 6. Feeling bad about yourself - or that you are a failure or have let yourself or your family down: not at all 7. Trouble concentrating on things, such as reading the newspaper or watching television: not at all 8. Moving or speaking so slowly that other people could have noticed. Or the opposite - being so fidgety or restless that you have been moving around a lot more than usual: not at all 9. Thoughts that you would be better off or of hurting yourself in some way: not at all Total score: 0 Depression Screening Interpretation: Negative Depression Screening Done: Yes Source: Developed by Drs. Meng Sosa, Elen Guzman, Tamir Mendes and colleagues, with an educational dorota from [employer]. Thrive Questionnaire I am a: Patient What is your living situation today?: I have a steady place to live Within the past 12 months, did the food you bought not last and you didn't have the money to get more?: Never true Within the past 12 months, did you worry whether your food would run out before you got money to buy more?: Never true Do you have trouble paying for medicines?: No Do you have trouble getting transportation to medical appointments?: No Do you have trouble paying your heating and electricity bill?: No Do you have trouble taking care of your child, family member or friend?: No Do you have trouble with day-to-day activities such as bathing, preparing meals, shopping, managing finances, etc.?: No Are you currently unemployed and looking for a job?: No Are you interested in more education?: No THRIVE Score: 0 AUDIT C Alcohol Use Questionnaire (AUDIT-C) 1. How often do you have a drink containing alcohol?: Never 3. How often do you have six or more drinks on one occasion?: Never Total Score: 0 ADIS-7 AMB Questionnaire ADIS-7 Date ADIS - 7 assessed: 04/21/23 Feeling nervous, anxious, or on edge: 0 = Not at all Not being able to stop or control worryin = Not at all Worrying too much about different things: 0 = Not at all Trouble relaxin = Not at all Being so restless that it is hard to sit still: 0 = Not at all Becoming easily annoyed or irritable: 0 = Not at all Feeling afraid as if something awful might happen: 0 = Not at all Total ADIS-7 score (0-4 normal; 5-9 mild; 10-14 moderate; 15-21 severe): 0 Source: Developed by Drs. Meng Sosa, Elen Guzman, Tamir Mendes and colleagues, with an educational dorota from [employer]. Review of Systems Const Denies chills, Denies fatigue, Denies fever(s), Denies headache(s) and Denies weakness Eyes Denies change in vision ENT Denies dizziness, Denies headache(s), Denies hearing loss, Denies nasal congestion, Denies sinus pain, Denies sinus pressure and Denies sore throat Card Denies chest pain, Denies lightheadedness, Denies dyspnea and Denies other (palpitations) Resp Denies cough, Denies dyspnea and Denies wheezing GI Denies abdominal pain, Denies melena, Denies hematochezia, Denies change in bowel habits, Denies dyspepsia and Denies nausea Denies hematuria and Denies dysuria Musc Denies abnormal gait, Denies myalgias, Denies arthralgias, Denies numbness and Denies tingling Skin/Breast Denies rash, Denies unusual bruising and Denies wounds Neuro Denies abnormal gait, Denies dizziness, Denies headache(s), Denies memory loss, Denies numbness, Denies Sensory deficit (Neuro), Denies tingling and Denies weakness Psych Denies anxiety, Denies depression and Denies memory loss Endo Denies cold intolerance, Denies fatigue, Denies heat intolerance, Denies polydipsia and Denies polyuria Tani/Lymph Denies easy bleeding and Denies easy bruising Aller/Immun Denies wheezing Physical exam (Primary Care) Vital Signs: Last Vital Signs Pulse 79 04/21/23 15:59 BP 112/64 04/21/23 15:59 Pulse Ox 99 04/21/23 15:59 Oxygen Delivery Method Room Air 04/21/23 15:59 BMI result Body Mass Index 25.3 Tobacco/Smoking Status: Tobacco use Status Tobacco use date assessed 04/21/23 04/21/23 16:08 Patient Tobacco Use Status Never used Tobacco 04/21/23 15:58 e-Cigarette/Vaping Use Never Used 04/21/23 16:08 PHQ-9: PHQ-9 Score PHQ-9: Total score 0 04/21/23 16:26 Depression Screening Interpretation: Negative Const General: no acute distress, well developed, alert and awake Nutritional Appearance: well nourished Orientation/consciousness: patient oriented x3 HENMT Head: Yes normocephalic and Yes atraumatic Ears: hearing grossly normal bilaterally and TM's normal bilaterally General nose exam: Normal external nose present and Normal nares present Mouth: Normal oral and palatal mucosa present and moist mucous membranes Teeth and gingiva: dentition normal Throat: Yes posterior oropharynx normal Eyes General: appearance normal, both eyes and all related structures Pupils: Equal, round and reactive pupils present and Pupil accommodation reflex normal EOM: EOMs intact bilaterally Neck Neck: Yes normal visual inspection, Yes no lymphadenopathy and Yes trachea midline Thyroid: Thyroid normal Carotids: no bruits Lymphatic: no lymphadenopathy noted Chest Chest palpation & inspection: normal inspection of the chest Resp Effort & Inspection: normal respiratory effort Auscultation: clear to auscultation bilaterally Cardio Rate: regular rate Rhythm: regular rhythm Heart sounds: S1 normal heart sound present, S2 normal heart sound present, no gallops, no murmurs and no rubs Bruits: no abdominal aortic bruits and no carotid bruits GI Palpation (GI): No Abdominal aortic bruit present, Soft to palpation, nontender, No hepatosplenomegaly present and No Rebound tenderness present Auscultation: normal bowel sounds General: Yes no CVA tenderness Back/Spine/Pelvis Back: no CVA tenderness Cervical Spine: cervical ROM normal and No Cervical spine tenderness Thoracic/Lumbar Spine: thoraco-lumbar ROM normal, No pain with thoraco-lumbar ROM, No thoracic spinal tenderness and No lumbar spinal tenderness Skin Lesions: no lesions Rashes: no rashes Trauma: no lacerations or abrasions Wounds: no wounds Nails: normal Neuro General: patient oriented x3 Cranial nerves: Yes Equal, round and reactive pupils present Cognition (Neuro): normal cognition Gait exam (Neuro): Normal gait present Motor exam (neuro): 5/5 motor strength present throughout Sensory Exam: No Sensory deficit (Neuro) Deep tendon reflexes (DTR's): Right patellar reflex intensity grade: 2+ and Left patellar reflex intensity grade: 2+ Extrem General: Yes normal to inspection and No edema Psych Appearance: grossly normal Affect: normal affect Attitude: cooperative Thought process: Normal thought process present Assessment and Plan Assessment & Plan (1) Adult general medical exam: Code(s): Z00.00 - Encounter for general adult medical examination without abnormal findings Plan: 57-year-old?female?presents?for?complete?physical?exam (2) Sleep apnea: Code(s): G47.30 - Sleep apnea, unspecified Plan: Previously?witnessed?apneic?events?and?daytime?sleepiness?and?fatigue Referred?to?Sleep?Medicine (3) Fatigue: Code(s): R53.83 - Other fatigue Plan: As?above?referred?to?Sleep?Medicine Also?checking?thyroid?levels?and?CBC (4) Elevated TSH: Code(s): R79.89 - Other specified abnormal findings of blood chemistry Plan: She?is?on?levothyroxine. Prior?thyroid?hormone?levels?were?not?within?normal?range Rechecking?these (5) Tinnitus: Code(s): H93.19 - Tinnitus, unspecified ear Plan: Referred?to?audiology (6) Constipation by delayed colonic transit: Code(s): K59.01 - Slow transit constipation Plan: Significant?GI?issues?and?deficit?of?peristalsis Followed?by??[facility]?and?Colorectal?surgery Follow-up?with?above?as?recommended (7) Irritable bowel syndrome: Code(s): K58.9 - Irritable bowel syndrome without diarrhea Plan: As?above Hydrate?well (8) Screening for cervical cancer: Code(s): Z12.4 - Encounter for screening for malignant neoplasm of cervix Plan: Patient?no?longer?has?cervix Still?followed?by?battery hand?for?periodic?exam (9) Breast cancer screening by mammogram: Code(s): Z12.31 - Encounter for screening mammogram for malignant neoplasm of breast Plan: Mammogram?in?March?was?negative Up-to-date.??Continue?annual?screening (10) Screening for colon cancer: Code(s): Z12.11 - Encounter for screening for malignant neoplasm of colon Plan: As?above,?patient?is?closely?followed?by??[facility]u (11) Screening for osteoporosis: Code(s): Z13.820 - Encounter for screening for osteoporosis Plan: Patient?is?at?high?risk?for?osteoporosis?due?to?gastrointestinal?issues?and?should?begin?screening?for?osteoporosis. DEXA?scan?ordered Orders: Orders Microalbumin, Random (w Creat) Today I10 - Essential (primary) hypertension UA and rflx microscopic Today Z00.00 - Encounter for general adult medical examination without abnormal findings Free T4 (Free Thyroxine) Today E03.9 - Hypothyroidism, unspecified TSH reflex Free T4 Today Z00.00 - Encounter for general adult medical examination without abnormal findings Vitamin D 25-OH Total Today E55.9 - Vitamin D deficiency, unspecified IRON PROFILE Today R53.83 - Other fatigue Ferritin Today R53.83 - Other fatigue XR DEXA axial skeleton Today M81.0 - Age-related osteoporosis without current pathological fracture, Z91.89 - Other specified personal risk factors, not elsewhere classified Comprehensive [place]. Panel Fast Today Z00.00 - Encounter for general adult medical examination without abnormal findings Complete Blood Count Auto Diff Today Z00.00 - Encounter for general adult medical examination without abnormal findings Referrals Audiology Referral H93.19 - Tinnitus, unspecified ear Sleep Medicine Referral G47.30 - Sleep apnea, unspecified Coding Level of Care Code Est Pt Level 3 (21889) Est Pt Prev Care 40-64y(31079) Diagnoses Adult general medical exam Z00.00 Sleep apnea G47.30 Fatigue R53.83 Elevated TSH R79.89 Tinnitus H93.19 Constipation by delayed colonic transit K59.01 Irritable bowel syndrome K58.9 Screening for cervical cancer Z12.4 Breast cancer screening by mammogram Z12.31 Screening for colon cancer Z12.11 Screening for osteoporosis Z13.820
[2023-04-21 15:59] VITALS: BP 112/64; PULSE 79; O2SAT 99; BMI 25.3
== END 2023-04-21 16:50 | disposition home or self-care (01) ==
PROVIDERS: PCP Family Medicine; Visit Provider Family Medicine
DX: Z00.00 Encounter for general adult medical examination without abnormal findings (principal); G47.30 Sleep apnea, unspecified; R53.83 Other fatigue; R79.89 Other specified abnormal findings of blood chemistry; H93.13 Tinnitus, bilateral; K59.01 Slow transit constipation; K58.9 Irritable bowel syndrome, unspecified; Z12.4 Encounter for screening for malignant neoplasm of cervix; Z12.31 Encounter for screening mammogram for malignant neoplasm of breast; Z12.11 Encounter for screening for malignant neoplasm of colon; Z13.820 Encounter for screening for osteoporosis
CPT/HCPCS: 99396

== ENCOUNTER 2023-04-25 06:51 | Outpatient (REF) | payer OTHER, SELFPAY ==
[2023-04-25 07:09] LABS: MANUAL DIFF FLAG NO
[2023-04-25 07:20] LABS: Basophils Absolute Auto 0.1 X10*3/uL (0.0-0.2); Basophils Percent Auto 0.8 % (0-2); Eosinophils Absolute Auto 0.2 X10*3/uL (0.0-0.4); Eosinophils Percent Auto 3.8 % (0-4); Hematocrit 38.4 % (37.0-47.0); Hemoglobin 12.5 g/dl (12.0-16.0); Imm Gran Abs Auto 0.01 X10*3/uL (0.00-0.03); Imm Gran Pct Auto 0.2 % (0.0-0.4); Lymphocytes Absolute Auto 1.9 X10*3/uL (1.2-4.9); Lymphocytes Percent Auto 31.3 % (20-40); Mean Corpuscular HGB Conc 32.6 g/dl (31.0-35.0); Mean Corpuscular Hemoglobin 32.5 pg (27.0-33.0); Mean Corpuscular Volume 99.7 fL (80.0-98.0); Mean Platelet Volume 9.5 fL (9.4-12.3); Monocytes Absolute Auto 0.4 X10*3/uL (0.1-1.2); Monocytes Percent Auto 7.2 % (2-11); Neutrophils Absolute Auto 3.5 x10*3/uL (2.0-8.3); Neutrophils Percent Auto 56.7 % (45-73); Platelet Count 255 X10*3/uL (160-400); Red Blood Count 3.85 X10*6/uL (4.20-5.50); Red Cell Distribution Width 12.8 % (11.0-16.0); White Blood Count 6.1 X10*3/uL (4.8-10.8)
[2023-04-25 08:06] LABS: Alanine Aminotransferase 35 U/L (0-31); Albumin Level 4.2 g/dL (3.5-5.0); Alkaline Phosphatase 100 U/L (39-117); Anion Gap 9 (12-20); Aspartate Amino Transferase 24 U/L (5-31); Bilirubin Total 0.2 mg/dL (0.0-1.0); Blood Urea Nitrogen 12 mg/dL (9-16); Calcium 9.4 mg/dL (8.4-10.2); Carbon Dioxide 26 mmol/L (22-29); Chloride 109 mmol/L (96-108); Estimated Glomerular Filt Rate > 60; Glucose Fasting 95 mg/dL (60-99); Iron 35 mcg/dL (30-160); Percent Iron Saturation 14 % (15-50); Potassium 3.9 mmol/L (3.3-5.1); Sodium 140 mmol/L (135-145); Total Iron Binding Capacity 259 mcg/dL (228-428); Total Protein 6.6 g/dL (6.5-8.0); Unsaturated Iron Binding 224 ug/dL
[2023-04-25 08:11] LABS: Calcium 9.7 mg/dL (8.4-10.2); Cholesterol 145 mg/dL (<200); Glucose Fasting 95 mg/dL (60-99); HDL Cholesterol 51 mg/dL (>40); LDL Cholesterol Calculated 74 mg/dL (<100); Triglycerides 101 mg/dL (<150)
[2023-04-25 08:17] LABS: Thyroid Stimulating Hormone 4.57 uIU/mL (0.32-4.0)
[2023-04-25 08:21] LABS: Ferritin 69 ng/mL (10-250); Free T4 (Free Thyroxine) 0.74 ng/dL (0.71-1.85); TSH reflex Free T4 4.41 uIU/mL (0.32-4.0); Vitamin D 25-OH Total 40.9 ng/mL (>30)
== END 2023-04-25 06:52 | disposition home or self-care (01) ==
LOC: HO.LAB 06:51
PROVIDERS: Absent Provider Psychiatry & Neurology Psychiatry; PCP Family Medicine; Visit Provider Family Medicine
DX: Z00.00 Encounter for general adult medical examination without abnormal findings (principal); E55.9 Vitamin D deficiency, unspecified; R53.83 Other fatigue; E03.9 Hypothyroidism, unspecified; F31.32 Bipolar disorder, current episode depressed, moderate; Z79.899 Other long term (current) drug therapy
CPT/HCPCS: 36415; 80053; 80061; 80178; 82306; 82310; 82728; 82947; 83540; 84439; 84443; 85025

== ENCOUNTER 2023-05-23 14:18 | Outpatient (REF) | payer OTHER, SELFPAY ==
--- NOTE | ~2023-05-23 | MM_ITS ---
EXAMINATION: BONE DENSITOMETRY CLINICAL INDICATION: Age-related osteoporosis without current pathological fracture. COMPARISON: This is the patient's baseline examination. TECHNIQUE: Using a [employer] DXA System (software version: 13.1) manufactured by [employer], dual-energy x-ray absorptiometry was performed of the lumbar spine and left hip. The images are of good technical quality. Summary results are attached. FINDINGS: LEFT FEMUR, NECK: BMD 0.843 g/cm2, Z-score -0.2, T-score -1.4, osteopenia. LEFT FEMUR, TOTAL: BMD 0.911 g/cm2, Z-score 0.1, T-score -0.8, normal. AP SPINE L1-L4: BMD 1.053 g/cm2, Z-score 0.0, T-score -1.1, osteopenia. IDENTIFIED RISK FACTORS: Early menopause, hysterectomy, secondary osteoporosis. HISTORY OF FRACTURE: None listed. MEDICATIONS: Calcium, vitamin D. MM/XR DEXA axial skeleton IMPRESSION: 1. DIAGNOSIS: Osteopenia based on the lowest T-score value of -1.4 in the femoral neck applying World Health Organization criteria. 2. 10-YEAR FRACTURE RISK PREDICTION, FRAX: Major osteoporotic fracture (clinical spine, forearm, hip or shoulder) 6.9%. Hip fracture 0.5%. 3. Treatment Recommendations: NOF guidelines recommend consideration for treatment in postmenopausal women and men age 50 and older presenting with the following: -A hip or vertebral (clinical or morphometric) fracture. -T-score less than or equal to -2.5 at the femoral neck or spine after appropriate evaluation to exclude secondary causes. -Low bone mass at the hip or spine and a 10-year fracture probability by FRAX of greater than or equal to 3% for hip fracture or greater than or equal to 20% for major osteoporotic fracture based on the [place] adapted WHO algorithm. 4. Other Recommendations: All treatment decisions require clinical judgment and consideration of individual patient factors, including patient preferences, comorbidities, previous drug use, risk factors not captured in the FRAX model (e.g. frailty, falls, vitamin D deficiency, increased bone turnover, interval significant decline in bone density) and possible under or overestimation of fracture risk by FRAX. Additional medical evaluation for secondary cause of low bone mineral density may be appropriate. FUTURE SCAN RECOMMENDATION: People with diagnosed cases of osteoporosis or at high risk for fracture should have regular bone mineral density tests. For patients eligible for Medicare, routine testing is allowed once every 2 years. The testing frequency can be increased to one year for patients who have rapidly progressing disease, those who are receiving or discontinuing medical therapy to restore bone mass, or have additional risk factors.
== END 2023-05-23 14:19 | disposition home or self-care (01) ==
LOC: HO.MAMMO 14:18
PROVIDERS: PCP Family Medicine; Visit Provider Family Medicine
DX: Z13.820 Encounter for screening for osteoporosis (principal); Z78.0 Asymptomatic menopausal state; M81.0 Age-related osteoporosis without current pathological fracture; Z91.89 Other specified personal risk factors, not elsewhere classified
CPT/HCPCS: 77080

== ENCOUNTER 2023-05-29 14:22 | Outpatient (REF) | payer OTHER, SELFPAY ==
--- NOTE | 2023-05-29 16:03 | MHC.AU.HA1 ---
Hearing Aid Evaluation Date of Visit: 05/29/23 Historical Information: Description of Hearing: Borderline normal/ mild sensorineural hearing loss to 6kHz sloping to moderate at 8kHz Au. Summary: Seen for evaluation. Bothered by high pitch tinnitus. Reports trouble hearing in noise, trouble hearing at work. Reviewed amplification styles, performance levels. Patient works in an environment with a lot of background noise, will benefit from sophisticated noise management. Seeking improved communication and relief from tinnitus. Selected rechargeable. Pt has an iphone but is not interested in pairing at this time. Hearing Aid Prescription: Based on the individual?s shared listening needs, communication environments, dexterity, desire for connectivity, and personal preferences, the following prescription for amplification has been made: Right ear: Make, Model, Color: Oticon Intent 1 R, blue Battery Size: Rechargeable Toxics Program Officer/Slim Tube: 2/60 Type of Earmold/Dome/CShell/SlimTip: 6mm open zimmerman Left ear: Make, Model, Color: Oticon Intent 1 R, blue Battery Size: Rechargeable Toxics Program Officer/Slim Tube: 2/60 Type of Earmold/Dome/CShell/SlimTip: 6mm open zimmerman Plan of Care: Patient wishes to purchase hearing aids as prescribed Action Taken/Action Needed: Medical Clearance to be requested from PCP/ENT Hearing Instrument Fitting to be scheduled when materials arrive Comments: Recommended cerumen removal Ad prior to fitting. Primary Diagnosis: H90.3 Bilateral Sensorineural Hearing Loss Secondary Diagnosis: H93.13 Tinnitus, Bilateral Signature: Provider: Aureliano Chavez, [facility]
== END 2023-05-29 14:23 | disposition home or self-care (01) ==
LOC: HO.SH 14:22
PROVIDERS: PCP Family Medicine; Visit Provider Family Medicine
DX: Z01.118 Encounter for examination of ears and hearing with other abnormal findings (principal); H90.3 Sensorineural hearing loss, bilateral; H93.13 Tinnitus, bilateral
CPT/HCPCS: 92557; 92567

== ENCOUNTER → 2023-06-02 16:36 | Outpatient (AMB) | payer OTHER, SELFPAY ==
[2023-06-02 16:40] VITALS: BP 104/66; PULSE 83; RESP 14; TEMP 36.6; O2SAT 99; BMI 24.8
--- NOTE | 2023-06-02 16:40 | A.OFFPC_ITS ---
Vital Signs 06/02/23 16:40 Height 5 ft 3 in Weight 140 lb BMI 24.8 BP 104/66 Blood Pressure Location Rt brachial Position Sitting Respiration 14 Pulse 83 Pulse Source Pulse Oximeter Temp 97.8 F Temp Source Temporal Artery Scan Pulse Oximetry (%) 99 Oxygen Delivery Method Room Air Intake Visit Reasons: f/u labs, sleep study Intake Note: Patient would like for you to look at her toe if there is time. Casino Surveillance Officer Required: No Accompanied by: Self / Same As Patient Allergies midazolam [From VERSED] Allergy (Intermediate, Verified 06/02/23 16:44) HYPERACTIVITY, increased hyperactivity hydromorphone [From Dilaudid] Allergy (Unknown, Verified 06/02/23 16:44) ITCHING Medication List - Last Reconciled 06/02/23 by Chema Payne MD amitriptyline tabs PO cholecalciferol (vitamin D3) (Vitamin D3) 125 mcg PO DAILY ibuprofen 800 mg PO Q8H PRN levothyroxine 75 mcg (1.5 x 50 mcg) PO DAILY 90 days lithium carbonate ER 1 tab PO BID methylphenidate HCl (Ritalin) 20 mg PO BID nitrofurantoin monohyd/m-cryst 100 mg (Macrobid) 100 mg PO Q12H 5 days phenazopyridine (Pyridium) 100 mg PO TID PRN 6 doses quetiapine 400 mg PO BEDTIME simvastatin 40 mg PO DAILY 90 days valacyclovir (Valtrex) 500 mg PO BID 10 days Tobacco use date assessed: 04/21/23 Dental Screening Dental Screen Date: 04/21/23 HPI f/u labs, sleep study HPI Details 57 y/o female presents to f/u CPE-labs, sleep apnea and bone density test. No sleep study yet. Bone density test 05/23/23 shows osteopenia. Labs were drawn 04/25/23. Reviewed labs with pt. RBC mildly low at 3.85. Elevated ALT of 35. Triglycerides 101. TC 145. LDL 74. HDL 51. She is on simvastatin 40mg daily. TSH elevated at 4.57. She is on levothyroxine 75 mcg daily. HPI Comments History of Present Illness Details Documentation assistance for Chema Payne MD, was provided by Allen Gay, Device Processing Engineer on 06/02/2023 4:52 PM EST. I, Dr. Payne, have read, observed, and verified documentation. [facility] Medical History (Updated 06/02/23 @ 17:07 by Allen Gay) History of cystocele Hypothyroid Hypercholesterolemia Constipation by delayed colonic transit Celiac disease PTSD (post-traumatic stress disorder) ADHD Bipolar 1 disorder Surgical History Hx of colonoscopy Hx of esophagogastroduodenoscopy History of breast augmentation History of appendectomy History of tonsillectomy H/O breast augmentation H/O: hysterectomy Social History Household Members: None Both parents involved: No Caregiver staying overnight: No Housing: Condominium Are you a primary career services coordinator to a significant other at home: No Do you presently have visiting nurse or other home services: No 75 years or older and lives alone: No Alcohol intake: never Patient Tobacco Use Status: Never used Tobacco e-Cigarette/Vaping Use: Never Used service: No 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 needs: No Hearing needs: Yes Vision needs: No Questionnaire Thrive Questionnaire Date Thrive assessed: 06/02/23 I am a: Patient What is your living situation today?: I have a steady place to live Within the past 12 months, did the food you bought not last and you didn't have the money to get more?: Never true Within the past 12 months, did you worry whether your food would run out before you got money to buy more?: Never true Do you have trouble paying for medicines?: No Do you have trouble getting transportation to medical appointments?: No Do you have trouble paying your heating and electricity bill?: No Do you have trouble taking care of your child, family member or friend?: No Do you have trouble with day-to-day activities such as bathing, preparing meals, shopping, managing finances, etc.?: No Are you currently unemployed and looking for a job?: No Are you interested in more education?: No Please select the resources that you would like help with: None Currently or been in a relationship where the following occur: no concerns reported THRIVE Score: 0 ADIS-7 AMB Questionnaire ADIS-7 Date ADIS - 7 assessed: 04/21/23 Source: Developed by Drs. Meng Sosa, Elen Guzman, Tamir Mendes and colleagues, with an educational dorota from [employer]. Review of Systems Const Denies chills, Denies fatigue, Denies fever(s), Denies headache(s) and Denies weakness ENT Denies dizziness and Denies headache(s) Card Denies dyspnea Resp Denies cough, Denies dyspnea, Denies wheezing and Denies other (shortness of breath) Musc Denies numbness and Denies tingling Neuro Denies dizziness, Denies headache(s), Denies numbness, Denies tingling and Denies weakness Psych Denies anxiety and Denies depression Endo Denies fatigue Aller/Immun Denies wheezing Physical exam (Primary Care) Vital Signs: Last Vital Signs Temp 97.8 F 06/02/23 16:40 Pulse 83 06/02/23 16:40 Resp 14 06/02/23 16:40 BP 104/66 06/02/23 16:40 Pulse Ox 99 06/02/23 16:40 Oxygen Delivery Method Room Air 06/02/23 16:40 BMI result Body Mass Index 24.8 Tobacco/Smoking Status: Tobacco use Status Tobacco use date assessed 04/21/23 06/02/23 16:41 Patient Tobacco Use Status Never used Tobacco 06/02/23 16:48 e-Cigarette/Vaping Use Never Used 06/02/23 16:48 Thrive Assessment: Date of Thrive Assessment Date Thrive assessed 06/02/23 06/02/23 16:41 Currently or been in a relationship where the following occur: no concerns reported Const General: well developed; No acute distress Nutritional Appearance: well nourished Orientation/consciousness: patient oriented x3 [facility] Head: Yes normocephalic and Yes atraumatic Eyes General: appearance normal, both eyes and all related structures Pupils: Equal, round and reactive pupils present EOM: EOMs intact bilaterally Resp Effort & Inspection: normal respiratory effort Auscultation: clear to auscultation bilaterally Cardio Rate: regular rate Rhythm: regular rhythm Heart sounds: S1 normal heart sound present, S2 normal heart sound present, no gallops, no murmurs and no rubs Neuro General: patient oriented x3 and gait normal Cranial nerves: Yes Equal, round and reactive pupils present Psych Affect: normal affect Assessment and Plan Assessment & Plan (1) Hypothyroid: Code(s): E03.9 - Hypothyroidism, unspecified Plan: TSH?w as?elevated?at?last?check?and?I?increased?her?levothyroxine?from?50?mcg?daily?to ?75?mcg?daily?about?a?month?ago. Will?recheck?in?about?3?months (2) Hypercholesterolemia: Code(s): E78.00 - Pure hypercholesterolemia, unspecified Plan: Lipids?are?controlled?on?simvastatin Continue?current?medication (3) Osteopenia: Code(s): M85.80 - Other specified disorders of bone density and structure, unspecified site Plan: Mild?osteopenia Recommended?good?sources?of?calcium,?continue?vitamin-D?and?encouraged?weight-be aring?exercise Will?continue?to?screen?every?2?years (4) Elevated ALT measurement: Code(s): R74.01 - Elevation of levels of liver transaminase levels Plan: Mildly?elevated/borderline?ALT?and?normal?AST. Encouraged?good?hydration?and?we?will?recheck?this?with?next?lab?draw (5) Ingrown nail: Code(s): L60.0 - Ingrowing nail Plan: Mildly?ingrown?nail?and?nail?trauma Let?nail?grew?out past?skin?and?avoid?compressing?nail?with?shoes (6) Tinnitus: Code(s): H93.19 - Tinnitus, unspecified ear Plan: Follow-up?with?speech?and?hearing?as?recommended Orders: Orders Triiodothyronine T3 Total Today E03.9 - Hypothyroidism, unspecified Comprehensive Met. Panel Today R74.01 - Elevation of levels of liver transaminase levels Free T4 (Free Thyroxine) Today E03.9 - Hypothyroidism, unspecified Thyroid Stimulating Hormone Today E03.9 - Hypothyroidism, unspecified Coding Level of Care Code Est Pt Level 4 (78598) Diagnoses Hypothyroid E03.9 Hypercholesterolemia E78.00 Osteopenia M85.80 Elevated ALT measurement R74.01 Ingrown nail L60.0 Tinnitus H93.19
== END ==
PROVIDERS: Visit Provider Family Medicine
DX: E03.9 Hypothyroidism, unspecified (principal); E78.00 Pure hypercholesterolemia, unspecified; M85.80 Other specified disorders of bone density and structure, unspecified site; R74.01 Elevation of levels of liver transaminase levels; L60.0 Ingrowing nail; H93.19 Tinnitus, unspecified ear
CPT/HCPCS: 99214

== ENCOUNTER 2023-07-05 14:29 | Outpatient (REF) | payer SELFPAY ==
--- NOTE | 2023-07-06 09:17 | MHC.AU.HA2 ---
Hearing Instrument Fitting- Adult- Binaural Date of Visit: 07/05/23 Hearing Instruments Dispensed: Right Ear: Make, Model, Color, Serial Number: Oticon Intent 1 R, blue [id number] Industrial Garage Servicer Repair Warranty: 07/07/2026 Industrial Garage Servicer Loss and Damage Warranty: 07/07/2026 [facility] Service Plan: [facility] employee Battery Size: Rechargeable Pharmacy Technician Trainee/Slim Tube: 2/60 Earmold/Dome/CShell/SlimTip: 6mm open zimmerman Type of Wax Guard: Minifit Pro Wax Left Ear: Make, Model, Color, Serial Number: Oticon Intent 1 R, blue [id number] Industrial Garage Servicer Repair Warranty: 07/07/2026 Industrial Garage Servicer Loss and Damage Warranty: 07/07/2026 [facility] Service Plan: [facility] employee Battery Size: Rechargeable Pharmacy Technician Trainee/Slim Tube: 2/60 Earmold/Dome/CShell/SlimTip: 6mm open zimmerman Type of Wax Guard: Minifit Pro Wax Accessories/Assistive Technology: Oticon Minirite cutting machine tender decorative [id number] Warranty 07/07/2026 Summary of Fitting: Here for fitting. Accompanied by Dario. Dispensed Oticon Intent 1 R HAs. Rosa initially found them to be overwhelmingly loud, eventually settled on adaptation 2, VAC, with sudden sound stabilizer increased as Rosa found the sound of hair and movement against the microphones bothersome. No auricle measurements today, equipment was down. Rosa was bothered by the sound of her own voice through the hearing aids. Counseled on adjustment to amplification and advised that she should find her own voice less bothersome with time. Counseled that further reduction in gain could reduce the possibility of tinnitus relief from amplification, which is a primary goal of Rosa's fitting. Practiced insertion and removal. Demonstrated charging. Reviewed precautions. Maintenance and cleaning to be practiced at follow up. VC disabled. Recommendations: Recommendations: A hearing instrument follow-up was scheduled. Diagnosis Code(s): Primary Diagnosis: H90.3 Bilateral Sensorineural Hearing Loss Secondary Diagnosis: H93.13 Tinnitus, Bilateral Signature: Provider: Aureliano Chavez, [facility]
== END 2023-07-05 14:30 | disposition home or self-care (01) ==
LOC: HO.HAP 14:29
PROVIDERS: Visit Provider Family Medicine
DX: Z46.1 Encounter for fitting and adjustment of hearing aid (principal); H90.3 Sensorineural hearing loss, bilateral
CPT/HCPCS: V5262; V5299

== ENCOUNTER 2023-07-20 15:54 | Outpatient (REF) | payer SELFPAY ==
--- NOTE | 2023-07-21 10:46 | MHC.AU.HA3 ---
Hearing Instrument Follow-Up- Binaural Date of Visit: 07/20/23 Right Ear: Model Gabino, Color, Serial Number: Oticon Intent 1 Ranel [id number] Manager Wireless Repair Warranty: 07/07/2026 Manager Wireless Loss and Damage Warranty: 07/07/2026 [facility] Service Plan: [facility] employee Battery Size: Rechargeable Baggage And Mail Agent/Slim Tube: 2/60 Earmold/Dome/CShell/SlimTip:6mm open zimmerman Type of Wax Guard: Minifit Pro Wax Dispensed By: [facility] Date of Fittin07/05/2023 Left Ear: Model Gabino, Color, Serial Number: Oticon Intent 1 R, anel [id number] Manager Wireless Repair Warranty: 07/07/2026 Manager Wireless Loss and Damage Warranty: 07/07/2026 [facility] Service Plan: [facility] employee Battery Size: Rechargeable Baggage And Mail Agent/Slim Tube: 2/60 Earmold/Dome/CShell/SlimTip: 6mm open zimmerman Type of Wax Guard: Minifit Pro Wax Dispensed By: [facility] Date of Fittin07/05/2023 Follow-Up Summary: Here for follow up. Accompanied by Dario. Reports consistent daily wear. Notes still bothered by constant scratching sounds from hair/glasses touching hearing aids. Also notes bothersome feeling of hearing in a tin can. Not noticing any tinnitus relief with hearing aid use. Rosa reports no improvement in hearing with hearing aids. Dario points out that he has noticed radio volume and TV volume down with hearing aid use. Set sudden sound stabilizer to maximum. Adjusted sound settings to rodriguez . Increased adaptation to level 3 while also reducing gain for highest pitches. Improvement reported. The goal is to provide enough amplification to get some tinnitus relief while minimizing the sounds that Rosa is finding bothersome. She will try for two more weeks and return for follow up. Need to practice cleaning and maintenance at follow up if she decides on keeping the aids. Recommendations: Recommendations: An additional follow-up was scheduled to monitor progress. Diagnosis Code(s): Primary Diagnosis: H90.3 Bilateral Sensorineural Hearing Loss Secondary Diagnosis: H93.13 Tinnitus, Bilateral Signature: Provider: Aureliano Chavez, [facility]
== END 2023-07-20 15:55 | disposition home or self-care (01) ==
LOC: HO.HAP 15:54
PROVIDERS: Visit Provider Family Medicine
DX: Z13.89 Encounter for screening for other disorder (principal)

== ENCOUNTER 2023-08-03 15:52 | Outpatient (REF) | payer SELFPAY ==
--- NOTE | 2023-08-04 12:17 | MHC.AU.HA3 ---
Hearing Instrument Follow-Up- Binaural Date of Visit: 08/03/23 Right Ear: Gabino, Model, Color, Serial Number: Oticon Intent 1 R, anel [id number] Account Maintenance Representative Repair Warranty: 07/07/2026 Account Maintenance Representative Loss and Damage Warranty: 07/07/2026 [facility] Service Plan: [facility] employee Battery Size: Rechargeable Back Gray Cloth Washer/Slim Tube: 2/60 Earmold/Dome/CShell/SlimTip:6mm open zimmerman Type of Wax Guard: Minifit Pro Wax Dispensed By: [facility] Date of Fittin07/05/2023 Left Ear: Gabino, Model, Color, Serial Number: Oticon Intent 1 R, anel [id number] Account Maintenance Representative Repair Warranty: 07/07/2026 Account Maintenance Representative Loss and Damage Warranty: 07/07/2026 [facility] Service Plan: [facility] employee Battery Size: Rechargeable Back Gray Cloth Washer/Slim Tube: 2/60 Earmold/Dome/CShell/SlimTip: 6mm open zimmerman Type of Wax Guard: Minifit Pro Wax Dispensed By: [facility] Date of Fittin07/05/2023 Follow-Up Summary: Here for follow up. Accompanied by Dario. Notable improvement since last visit reported. Not bothered by scratchy sounds. Improvement in tin can feeling noted. Rosa reports that the hearing aids do not completely remove the perception of tinnitus but do greatly reduce it. She reports the difference is significant when she removes the hearing aids at the end of the day. Increased gain slightly at pt. request. Set to target now aside from slightly reduced gain in highs to prevent the scratchy problem Practiced changing domes and wax guards. Nearing end of trial period, Rosa reports she is likely to keep them as she is getting tinnitus relief. Aware she would have to return them in the next couple days if she changes her mind. Additional follow up scheduled incase she'd like any further adjustments as she continues getting used to them. Recommendations: Recommendations: An additional follow-up was scheduled to monitor progress. Diagnosis Code(s): Primary Diagnosis: H90.3 Bilateral Sensorineural Hearing Loss Secondary Diagnosis: H93.13 Tinnitus, Bilateral Provider: Aureliano Chavez, [facility]
== END 2023-08-03 15:53 | disposition home or self-care (01) ==
LOC: HO.HAP 15:52
PROVIDERS: Visit Provider Family Medicine
DX: Z13.89 Encounter for screening for other disorder (principal)

== ENCOUNTER 2023-09-27 15:05 | Outpatient (REF) | payer OTHER, SELFPAY ==
[2023-09-27 16:48] LABS: Alanine Aminotransferase 25 U/L (0-31); Albumin Level 4.4 g/dL (3.5-5.0); Alkaline Phosphatase 101 U/L (39-117); Anion Gap 11 (12-20); Aspartate Amino Transferase 23 U/L (5-31); Bilirubin Total 0.1 mg/dL (0.0-1.0); Blood Urea Nitrogen 13 mg/dL (9-16); Calcium 10.1 mg/dL (8.4-10.2); Carbon Dioxide 26 mmol/L (22-29); Chloride 111 mmol/L (96-108); Estimated Glomerular Filt Rate > 60; Glucose Random 111 mg/dL (60-115); Potassium 3.8 mmol/L (3.3-5.1); Sodium 144 mmol/L (135-145); Total Protein 6.9 g/dL (6.5-8.0)
[2023-09-27 16:59] LABS: Free T4 (Free Thyroxine) 0.76 ng/dL (0.71-1.85); Thyroid Stimulating Hormone 0.85 uIU/mL (0.32-4.0)
[2023-09-27 18:21] LABS: Creatinine Urine 196.83 mg/dL; Microalbum/Creatinine Ratio Ur 13.2 ug/mg cr (<30)
[2023-09-27 18:29] LABS: Appearance Urine Cloudy; Color Urine Yellow; Glucose Urine UA Negative (Negative); Leukocyte Esterase Urine Moderate (2+) (Negative); Nitrite Urine Negative (Negative); PH 5.5 (5.0-9.0); UMIC TRIGGER UA YES; Urine Blood Negative (Negative); Urine Ketones Trace mg/dL (Negative); Urine Protein Negative (Neg-Trace)
[2023-09-27 18:48] LABS: Bacteria Urine None Seen (None Seen); Calcium Oxalate Crystals Urine Present; Hyaline Casts Urine 0-2 /LPF (0-2); RBC Urine 0-2 /HPF (0-2); WBC Urine 0-5 /HPF (0-5)
[2023-09-28 07:38] LABS: Triiodothyronine T3 Total 69 ng/dL (76-181)
== END 2023-09-27 15:06 | disposition home or self-care (01) ==
LOC: HO.LAB 15:05
PROVIDERS: PCP Family Medicine; Visit Provider Family Medicine
DX: R74.01 Elevation of levels of liver transaminase levels (principal); E03.9 Hypothyroidism, unspecified; I10 Essential (primary) hypertension
CPT/HCPCS: 36415; 80053; 81001; 82043; 82570; 84439; 84443; 84480

== ENCOUNTER → 2023-10-04 16:01 | Outpatient (AMB) | payer OTHER, SELFPAY ==
--- NOTE | 2023-10-04 15:53 | A.OFFPC_ITS ---
Intake Visit Reasons: 1m fu thyroid Intake Note: 1m f/u thyroid Allergies midazolam [From VERSED] Allergy (Intermediate, Verified 10/04/23 15:53) HYPERACTIVITY, increased hyperactivity hydromorphone [From Dilaudid] Allergy (Unknown, Verified 10/04/23 15:53) ITCHING Tobacco use date assessed: 04/21/23 Dental Screening Dental Screen Date: 04/21/23 HPI 1m fu thyroid HPI Details 57 y/[facility] Labs drawn 09/27/23. Reviewed labs with pt. Liver enzymes are normal. TSH improved from 4.57 to 0.85. Total T3 low at 69. Free T4 0.76. [facility] Medical History (Updated 10/04/23 @ 16:57 by Allen Gay) History of cystocele Hypothyroid Hypercholesterolemia Constipation by delayed colonic transit Celiac disease PTSD (post-traumatic stress disorder) ADHD Bipolar 1 disorder Surgical History Hx of colonoscopy Hx of esophagogastroduodenoscopy History of breast augmentation History of appendectomy History of tonsillectomy H/O breast augmentation H/O: hysterectomy Social History Household Members: None Both parents involved: No Caregiver staying overnight: No 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 Meng Sosa, Elen Guzman, Tamir Mendes and colleagues, with an educational dorota from [employer]. Review of Systems Const Denies chills, Denies fatigue, Denies fever(s), Denies headache(s) and Denies weakness ENT Denies dizziness and Denies headache(s) Card Denies dyspnea Resp Denies cough, Denies dyspnea, Denies wheezing and Denies other (shortness of breath) Musc Denies numbness and Denies tingling Neuro Denies dizziness, Denies headache(s), Denies numbness, Denies tingling and Denies weakness Psych Denies anxiety and Denies depression Endo Denies fatigue Aller/Immun Denies wheezing Physical exam (Primary Care) Tobacco/Smoking Status: Tobacco use Status Tobacco use date assessed 04/21/23 10/04/23 15:55 Patient Tobacco Use Status Never used Tobacco 10/04/23 15:55 e-Cigarette/Vaping Use Never Used 10/04/23 15:55 Thrive Assessment: Date of Thrive Assessment Date Thrive assessed 06/02/23 10/04/23 15:55 Telehealth Telehealth Telehealth Platform: Telephone Location of provider rendering services: practice address Location of patient: address on file Patient Identification confirmed using: Name, : Yes Telehealth method: voice only Patient verbally consented to treatment: Yes Patient verbally consented to billing insurance company: Yes Patient informed of any privacy concerns related to visit: Yes Minutes spent on Phone/Video with Pt.: 3 Assessment and Plan Assessment & Plan (1) Hypothyroid: Code(s): E03.9 - Hypothyroidism, unspecified Plan: TSH?now?within?normal?range?and?T4?is?within?normal?range?as?well T3?is?mildly?low Will?continue?current?medication?dose?and?recheck?with?next?blood?draw (2) Elevated ALT measurement: Code(s): R74.01 - Elevation of levels of liver transaminase levels Plan: Liver?enzymes?now?within?normal?range. Coding Level of Care Code Tele Est Pt Level 2 (14986) Diagnoses Hypothyroid E03.9 Elevated ALT measurement R74.01
== END ==
LOC: HO.HMGFM 16:01
PROVIDERS: PCP Family Medicine; Visit Provider Family Medicine
DX: E03.9 Hypothyroidism, unspecified (principal); R74.01 Elevation of levels of liver transaminase levels
CPT/HCPCS: 99212

== ENCOUNTER 2023-10-25 14:23 | Outpatient (REF) | payer OTHER, SELFPAY ==
[2023-10-25 14:41] LABS: MANUAL DIFF FLAG NO
[2023-10-25 15:55] LABS: Basophils Absolute Auto 0.1 X10*3/uL (0.0-0.2); Basophils Percent Auto 1.3 % (0-2); Eosinophils Absolute Auto 0.1 X10*3/uL (0.0-0.4); Eosinophils Percent Auto 2.2 % (0-4); Hemoglobin 12.3 g/dl (12.0-16.0); Imm Gran Abs Auto 0.02 X10*3/uL (0.00-0.03); Imm Gran Pct Auto 0.3 % (0.0-0.4); Lymphocytes Absolute Auto 1.9 X10*3/uL (1.2-4.9); Lymphocytes Percent Auto 30.2 % (20-40); Mean Corpuscular HGB Conc 34.2 g/dl (31.0-35.0); Mean Corpuscular Hemoglobin 31.8 pg (27.0-33.0); Mean Platelet Volume 10.1 fL (9.4-12.3); Monocytes Absolute Auto 0.5 X10*3/uL (0.1-1.2); Monocytes Percent Auto 8.1 % (2-11); Neutrophils Absolute Auto 3.7 x10*3/uL (2.0-8.3); Neutrophils Percent Auto 57.9 % (45-73); Platelet Count 235 X10*3/uL (160-400); Red Blood Count 3.87 X10*6/uL (4.20-5.50); Red Cell Distribution Width 12.4 % (11.0-16.0); White Blood Count 6.3 X10*3/uL (4.8-10.8)
[2023-10-25 16:07] LABS: Anion Gap 13 (12-20); Blood Urea Nitrogen 14 mg/dL (9-16); Calcium 9.8 mg/dL (8.4-10.2); Carbon Dioxide 25 mmol/L (22-29); Chloride 109 mmol/L (96-108); Estimated Glomerular Filt Rate > 60; Glucose Random 119 mg/dL (60-115); Sodium 144 mmol/L (135-145)
[2023-10-25 17:22] LABS: Appearance Urine Clear; Color Urine Yellow; Glucose Urine UA Negative (Negative); Leukocyte Esterase Urine Negative (Negative); Nitrite Urine Negative (Negative); PH 5.5 (5.0-9.0); Specific Gravity - Urine >= 1.030 (1.005-1.025); Urine Blood Negative (Negative); Urine Ketones Negative (Negative); Urine Protein Negative (Neg-Trace)
== END 2023-10-25 14:24 | disposition home or self-care (01) ==
LOC: HO.LAB 14:23
PROVIDERS: PCP Family Medicine; Visit Provider Urology
DX: N81.11 Cystocele, midline (principal); N39.0 Urinary tract infection, site not specified
CPT/HCPCS: 36415; 80048; 81003; 85025

== ENCOUNTER 2023-11-01 11:30 | Outpatient (REF) | payer OTHER, SELFPAY | END 2023-11-01 11:31 | disposition home or self-care (01) | LOC: HO.LAB 11:30 | PROVIDERS: PCP Family Medicine; Visit Provider Urology | DX: N39.0 Urinary tract infection, site not specified (principal) | CPT/HCPCS: 87086 ==

== ENCOUNTER 2023-11-21 11:03 | Outpatient (REF) | payer SELFPAY | END 2023-11-21 11:04 | disposition home or self-care (01) | LOC: HO.HAP 11:03 | PROVIDERS: Visit Provider Family Medicine | DX: Z13.89 Encounter for screening for other disorder (principal) ==

== ENCOUNTER 2023-11-22 11:50 | Outpatient (REF) | payer SELFPAY | END 2023-11-22 11:51 | disposition home or self-care (01) | LOC: HO.HAP 11:50 | PROVIDERS: Visit Provider Family Medicine | DX: Z13.89 Encounter for screening for other disorder (principal) ==

== ENCOUNTER 2024-01-17 13:12 | Outpatient (AMB) | payer OTHER, SELFPAY ==
--- NOTE | 2024-01-17 13:22 | A.OFFPC_ITS ---
Vital Signs 01/17/24 13:28 Height 5 ft 3 in Weight 138 lb BMI 24.4 BP 116/60 Blood Pressure Location Rt brachial Position Sitting Respiration 12 Pulse 58 Pulse Source Pulse Oximeter Pulse Oximetry (%) 98 Oxygen Delivery Method Room Air Intake Visit Reasons: Restless leg syndrome Intake Note: Patient psychiatric thinks she has restless leg syndrome and wated patient to see her provider for it [place] [employer] Leader Required: No Allergies midazolam [From VERSED] Allergy (Intermediate, Verified 01/17/24 13:35) HYPERACTIVITY, increased hyperactivity hydromorphone [From Dilaudid] Allergy (Unknown, Verified 01/17/24 13:35) ITCHING Medication List - Last Reconciled 01/17/24 by Sarah Lugo, PHYSICIAN NON INVASIVE CARDIOLOGIST-BC biotin mcg PO bisacodyl 5 mg PO BEDTIME calcium carbonate 600 mg PO DAILY carbamazepine ER (Tegretol XR) 100 mg PO DAILY cholecalciferol (vitamin D3) 50 mcg PO DAILY eszopiclone (Lunesta) 3 mg PO BEDTIME lactobacillus combination no.4 (Probiotic) 3,000 mmu cells PO DAILY lamotrigine (Lamictal) 200 mg PO DAILY levothyroxine 75 mcg (1.5 x 50 mcg) PO DAILY 90 days methylphenidate HCl (Ritalin) 20 mg PO BID multivitamin 1 tab PO DAILY Tobacco use date assessed: 04/21/23 Dental Screening Dental Screen Date: 04/21/23 HPI HPI Comments History of Present Illness Details History of Present Illness The patient is a 58-year-old female presenting with concerns regarding Restless Leg Syndrome. She reports that the symptoms intensified notably after her second bladder prolapse surgery on November 07. The patient describes the occurrence of nocturnal leg discomfort that prevents relaxation and disrupts sleep significantly. Despite taking Lunesta (eszopiclone) 3 mg at bedtime for sleep, she remains unable to rest comfortably. Her history includes chronic psychiatric management, having taken Seroquel for 12 years which was recently discontinued due to severe adverse reactions, including chest pain and breathing difficulties, suspected to be related to the medication. She was switched to propranolol temporarily. Additionally, the patient has recently been prescribed Tegretol XR 100 mg at bedtime for ongoing symptoms of depression. Also noted is a background of anemia, hypokalemia, and hypothyroidism noted on 10/2023 labs, + familial history of thyroid disorders. Past lab results from October indicated these abnormalities, and no follow-up labs were conducted since. The patient has been experiencing persistent depressive symptoms despite stabilization on current medications. Physical Exam General: Awake, alert. No apparent distress Eyes: Sclera and conjunctiva clear bilaterally Cardiovascular: Bradycardia noted, pulse in the 50s Respiratory: Clear to auscultation bilaterally MSK: legs restless during the entire visit Results - Labs: Hemoglobin A1c was measured at 5 .3% done today to eval previous elevated glucose on 10/2023 labs, Previous labs indicated anemia, low potassium, and slight thyroid abnormalities. Plan 1. Restless Leg Syndrome: - Consider pha rmacological treatment if all lab results return normal. 2. Anemia: - Depending on results, manag e possible iron deficiency or other causes as identified. 3. Hypokalemia: - Recheck potassium leve ls with CMP and adjust supplementation or treatment if necessary. 4. Hypothyroidism: - Reevaluate thyroid function tests Patient was informed and verbally consented to the use of an ambient scribe for clinic note documentation during this visit. Discussion Notes During the visit, we discussed the provisional diagnosis of Restless Leg Syndrome, emphasizing the need for further laboratory investigations to ascertain potential causative factors such as anemia or electrolyte imbalances. The importance of normalizing these underlying issues to alleviate symptoms was stressed. I explained the plan to defer labeling the condition until all contributing factors are reviewed. The risks and benefits of current and potential future pharmacological treatments were discussed, noting the cessation of Seroquel and transition to other medications. The patient was informed that should the lab results indicate normal findings, a pharmacological approach might be considered for Restless Leg Syndrome management. I discussed the expected call for lab results on critical findings and the plan for follow-up communication regarding normal findings by Monday. Patient Instructions - Proceed to the lab to complete the ord ered tests today, as fasting is not required. - Await a phone call on Monday for follo w-up based on lab results. - Continue current medications as prescr ibed, and monitor any new symptoms or significant changes. - Contact the office if there are any ur gent concerns, particularly regarding worsening symptoms or new reactions to existing medication. - Follow its ongoing psychiatric treatme nt plan and report progress at subsequent encounters. This note is constructed using voice recognition software. While every effort has been made to ensure accuracy in geriatric personal care aide, still errors may have been included Sometimes, these errors may affect the content or meaning of the given sentence . Total time spent caring for the patient today was 30 minutes. This includes time spent before the visit reviewing the chart, time spent during the visit, and time spent after the visit on documentation [facility] Medical History (Updated 01/17/24 @ 15:02 by Sarah Lugo, [facility]) History of cystocele Hypothyroid Hypercholesterolemia Constipation by delayed colonic transit Celiac disease PTSD (post-traumatic stress disorder) ADHD Bipolar 1 disorder Surgical History Hx of colonoscopy Hx of esophagogastroduodenoscopy History of breast augmentation History of appendectomy History of tonsillectomy H/O breast augmentation H/O: hysterectomy Social History Household Members: None Housing: Condominium Are you a primary day care aide to a significant other at home: No Do you presently have visiting nurse or other home services: No Alcohol intake: never Patient Tobacco Use Status: Never used Tobacco e-Cigarette/Vaping Use: Never Used service: No 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 1. Little interest or pleasure in doing things: nearly every day 2. Feeling down, depressed, or hopeless: more than half the days 3. Trouble falling or staying asleep, or sleeping too much: nearly every day 4. Feeling tired or having little energy: more than half the days 5. Poor appetite or overeating: not at all 6. Feeling bad about yourself - or that you are a failure or have let yourself or your family down: several days 7. Trouble concentrating on things, such as reading the newspaper or watching television: more than half the days 8. Moving or speaking so slowly that other people could have noticed. Or the opposite - being so fidgety or restless that you have been moving around a lot more than usual: nearly every day 9. Thoughts that you would be better off or of hurting yourself in some way: not at all Total score: 16 20248 - PHQ-9 Billing: Yes Source: Developed by Drs. Meng Sosa, Tamir Luis and colleagues, with an educational dorota from [employer]. Thrive Questionnaire Date Thrive assessed: 01/17/24 I am a: Patient What is your living situation today?: I have a steady place to live Within the past 12 months, did the food you bought not last and you didn't have the money to get more?: Never true Within the past 12 months, did you worry whether your food would run out before you got money to buy more?: Never true Do you have trouble paying for medicines?: No Do you have trouble getting transportation to medical appointments?: No Do you have trouble paying your heating and electricity bill?: No Do you have trouble taking care of your child, family member or friend?: No Do you have trouble with day-to-day activities such as bathing, preparing meals, shopping, managing finances, etc.?: No Are you currently unemployed and looking for a job?: No Are you interested in more education?: No Please select the resources that you would like help with: None Currently or been in a relationship where the following occur: No concerns reported THRIVE Score: 0 AUDIT C Alcohol Use Questionnaire (AUDIT-C) 1. How often do you have a drink containing alcohol?: Never Total Score: 0 ADIS-7 AMB Questionnaire ADIS-7 Date ADIS - 7 assessed: 01/17/24 Feeling nervous, anxious, or on edge: 3 = Nearly every day Not being able to stop or control worryin = More than half the days Worrying too much about different things: 2 = More than half the days Trouble relaxin = More than half the days Being so restless that it is hard to sit still: 3 = Nearly every day Becoming easily annoyed or irritable: 2 = More than half the days Feeling afraid as if something awful might happen: 0 = Not at all Total ADIS-7 score (0-4 normal; 5-9 mild; 10-14 moderate; 15-21 severe): 14 Source: Developed by Elen Roach Kurt Kroenke and colleagues, with an educational dorota from [employer]. ADIS-7 Assessment Billing ADIS-7 Assessment Tool: ADIS-7 Assessment 36997 Physical exam (Primary Care) Vital Signs: Last Vital Signs Pulse 58 01/17/24 13:28 Resp 12 01/17/24 13:28 BP 116/60 01/17/24 13:28 Pulse Ox 98 01/17/24 13:28 Oxygen Delivery Method Room Air 01/17/24 13:28 BMI result Body Mass Index 24.4 Tobacco/Smoking Status: Tobacco use Status Tobacco use date assessed 04/21/23 01/17/24 13:24 Patient Tobacco Use Status Never used Tobacco 01/17/24 13:24 e-Cigarette/Vaping Use Never Used 01/17/24 13:24 PHQ-9: PHQ-9 Score PHQ-9: Total score 16 01/17/24 13:24 Thrive Assessment: Date of Thrive Assessment Date Thrive assessed 01/17/24 01/17/24 13:24 Currently or been in a relationship where the following occur: No concerns reported Results AMB Hemoglobin A1c AMB Hemoglobin A1c 5.3 % Last Edit by America Mix MA on 01/17/24 13:44 Coding Level of Care Code Est Pt Level 4 (13175) Complex EM visit Add On G2211 Diagnoses Acquired hypothyroidism E03.9 Hypothyroidism type: acquired Anemia, unspecified type D64.9 Anemia type: unspecified type Elevated glucose R73.09 Hypokalemia E87.6 Additional Codes ADIS-7 Assessment Billing - ADIS-7 Assessment Tool: ADIS-7 Assessment 48271 ([id number]) PHQ-9 - 66697 - PHQ-9 Billing: Yes ([id number]) Assessment & Plan Assessment & Plan (1) Hypothyroid: Code(s): E03.9 - Hypothyroidism, unspecified Category: Medical Qualifiers: Hypothyroidism type: acquired Qualified Code(s): E03.9 - Hypothyroidism, unspecified (2) Anemia: Code(s): D64.9 - Anemia, unspecified Category: Medical Qualifiers: Anemia type: unspecified type Qualified Code(s): D64.9 - Anemia, unspecified (3) Elevated glucose: Code(s): R73.09 - Other abnormal glucose Category: Medical (4) Hypokalemia: Code(s): E87.6 - Hypokalemia Category: Medical Plan . Orders: Orders IRON PROFILE Today D64.9 - Anemia, unspecified, E03.9 - Hypothyroidism, unspecified, E87.6 - Hypokalemia, R73.09 - Other abnormal glucose Vitamin B12 and Folate Today D64.9 - Anemia, unspecified, E03.9 - Hypothyroidism, unspecified, E87.6 - Hypokalemia, R73.09 - Other abnormal glucose TSH reflex Free T4 Today D64.9 - Anemia, unspecified, E03.9 - Hypothyroidism, unspecified, E87.6 - Hypokalemia, R73.09 - Other abnormal glucose AMB Hemoglobin A1c Today Z13.9 - Encounter for screening, unspecified Complete Blood Count no Diff Today D64.9 - Anemia, unspecified, E03.9 - Hypothyroidism, unspecified, E87.6 - Hypokalemia, R73.09 - Other abnormal glucose Comprehensive Met. Panel Today D64.9 - Anemia, unspecified, E03.9 - Hypothyroidism, unspecified, E87.6 - Hypokalemia, R73.09 - Other abnormal glucose Ferritin Today D64.9 - Anemia, unspecified, E03.9 - Hypothyroidism, unspecified, E87.6 - Hypokalemia, R73.09 - Other abnormal glucose Magnesium Today D64.9 - Anemia, unspecified, E03.9 - Hypothyroidism, unspecified, E87.6 - Hypokalemia, R73.09 - Other abnormal glucose Phosphorus Today D64.9 - Anemia, unspecified, E03.9 - Hypothyroidism, unspecified, E87.6 - Hypokalemia, R73.09 - Other abnormal glucose
[2024-01-17 13:28] VITALS: BP 116/60; PULSE 58; RESP 12; O2SAT 98; BMI 24.4
--- OUTSIDE RECORDS SUMMARY | 2024-01-18 02:23 | XMS_ITS ---
Author Organization [facility] Address [address] [place] [address] Care Team Providers Care Law Researcher Name Role Phone Chema Payne Primary Care Provider Unavailab Meng Ugalde Unavailable [phone] REASON FOR VISIT Patient presents today for celiac disease Encounters Encounter Location Date Provider Diagnosis [facility] [address] [place] [address] 10/19/2022 Meng [place] PLAN OF TREATMENT No Information
--- OUTSIDE RECORDS SUMMARY | 2024-01-18 02:23 | XMS_ITS ---
Author Organization [facility] Address [address] [place] [address] Care Team Providers Care Base Ply Hand Name Role Phone Chema Payne Primary Care Provider Unavailab Meng Ugalde Unavailable [phone] REASON FOR VISIT Pt no show Encounters Encounter Location Date Provider Diagnosis [facility] [address] [place] [address] 10/19/2022 Meng [place] PLAN OF TREATMENT No Information
--- OUTSIDE RECORDS SUMMARY | 2024-01-18 02:23 | XMS_ITS | Patient Health Record ---
Author Organization [facility] Address [address] [place] [address] Care Team Providers Care Rattlesnake Farmer Name Role Phone Chema Payne Primary Care Provider UnavailMeng Rutherford Unavailable [phone] ALLERGIES Allergen (clinical drug ingredient) Drug/Non Drug Allergy documented on EMR Reaction Allergy Type Onset Date Status Information temporarily unavailable Midazolam Unknown Drug Allergy Active Information temporarily unavailable Dilaudid Unknown Drug Allergy Active REASON FOR REFERRAL No Information MEDICATIONS Medication SIG (Take, Route, Frequency, Duration) Notes Start Date End Date Status Cinnamon 500 MG as directed Orally Active Docusate Sodium 250 MG 2 capsule Orally QHS Active Bisacodyl 5 MG 5 tablets Orally QHS Active Simvastatin 20 MG 1 tablet in the even ing Orally Once a day for 30 day(s) Active Synthroid 50 MCG 1 tablet in the morn ing on an empty stomach Orally Once a day for 30 day(s) Active Vitamin D-3 125 MCG (5000 UT) as directed Orally Active Probiotic - as directed Orally Active Senna 8.6 MG 2 capsules Orally QAM Active Strattera 60 MG 1 capsule in the mor norbert Orally Once a day for 30 day(s) Active Amitriptyline HCl 25 MG 2 tablet at bedt kaylene Orally Once a day Active Dinosaur Carbonate ER 450 MG 2 tablet at bedtime Orally Once a day Active QUEtiapine Fumarate 400 MG 1 tablet at b edtime Orally Once a day for 30 day(s) Active IMMUNIZATIONS Vaccine Route Administration Date Status Comme nts Influenza Unknown 11/18/2021 Administered Influenza Unknown 05/18/2021 Refused SOCIAL HISTORY Tobacco Use: Social History Observation Description Date Details (start date - stop date) Never Smoker NA - NA Sex Assigned At : Social History Observation Description Sex Assigned At Unknown Tobacco Use/Smoking Question Answer Notes Patient is a nonsmoker Alcohol Screen Question Answer Notes Did you have a drink containing alcohol in the p ast year? No Points 0 Interpretation Negative PROBLEMS Problem Type ICD Code Onset Dates Problem Status W/U Status Risk SNOMED Code Notes Problem Constipation, unspecified constipation type (K59.00) Active confirmed 30038941 Problem Celiac disease (K90.0) Active confirmed 070919174 Problem Encounter for screening for malignant neoplasm of colon (Z12.11) Active confirmed 432239317 Problem Pharyngoesophageal dysphagia (R13.14) Active confirmed 53373157 Problem Slow transit constipation (K59.01) Active confirmed 26468643 Problem Constipation (K59.00) Active confirmed Constipation (24167494) Problem Abdominal distension (R14.0) Active confirmed Flatulence, eructation and gas pain (185577058) Problem Abnormal findings on diagnostic imaging of other abdominal regions, including retroperitoneum (R93.5) Active confirmed Imaging of abdomen abnormal (550642333) Problem Pelvic floor dysfunction in female (M62.89) Active confirmed 104607911 PLAN OF TREATMENT Pending Test Test Name Order Date LIVER PROFILE 05/18/2021 CBC w DIFF 05/18/2021 CELIAC PANEL #10 05/18/2021 CT ABD & PELVIS NO CONTRAST 10/21/2021 XR BARIUM SWALLOW, MODIFIED VIDEO 2022 XR BARIUM ENEMA 10/21/2021 TSH REFLEX FREE T4 05/18/2021 Sitz Marker Study 05/29/2021 Future Test Test Name Order Date UPPER GI ENDOSCOPY BALLOOON DILATION OF ESOPH 05/18/2021 COLONOSCOPY 05/18/2021 Insurance Providers Payer Name Payer Address Payer Phone Subscriber Number Group Number Insured Name Patient Relationship to Insured Coverage Start Date Coverage End Date [employer] [address] [address] [place] [address] [id number] SHIRA LEIJA Self - patient is the insured MEDICAL (GENERAL) HISTORY Medical History History ICD Code Bipolar ADHD PTSD She stays on a gluten-free d iet-has had a positive [facility] Ceila Disease Genetic Profile, although her duodenal biopsies were nomal in 2014 and celiac disease serology labs were negative as well....although she was on a gluten-free diet at the time of those studies. Duodenal biopsies were normal and celiac disease laboratories were negative in May of 2021 High Cholesterol Chronic constipation-Sitz ma rker study revealed accumulation of the great majority of the markers in the area of the sigmoid colon. Fecal defecography study in 09/2021 at [facility] revealed no significant change in the anorectal angle ranging from 148 degrees in the neutral sequence, 145 degrees in the squeeze sequence, 148 degrees in the bearing down sequence, and 155 degrees in the evacuation sequence. The report describes rectal incontinence throughout the exam and the fact that she did not have any sensation of tenesmus. There only appeared to be passive emptying of the contrast from the rectum, which did ultimately emptying over a prolonged period of time according to the report. The impression of the report describes a pelvic floor laxity, and a fecal incontinence with relatively atonic and insensate rectum. A Denies [place],DM,CVA,Lung disease,renal dise ase Cystocele--surgery as below Hypothyroidism Negative colon[place] [address] Cindy zarateis Negative EGD [place] [address] Radha Harrington-negative biopsies from the duodenum and stomach Urinary incontinence resolve d with the below surgery by Dr. Latham in 07/2021 Incomplete colonoscopy in Ap ril 2021, including a poor prep despite a two-day preparation. Colon biopsies were negative for microscopic colitis. Upper endoscopy in May of 2021 revealed a small hiatal hernia, but there no evidence of esophagitis nor Lemons's esophagus. Duodenal biopsies were negative for any sign of active celiac disease. Gastric biopsies were negative for H. pylori. Proximal esophageal biopsies were negative for eosinophilic esophagitis. Surgical History Surgery Date(Month/Year) Vaginal hysterectomy 2007 Perforated appendix with an associated peritonitis, ileus, right side pleural effusion, and sepsis 2019 Breast augmentation Cystocele repair, Rectocele repair, Vaginal vault repair, Bladder suspension with a sling--Dr. Latham 07/2021--she describes an excellent clinical improvement from the surgery as of the 04/2022 OV
== END 2024-01-17 13:57 | disposition home or self-care (01) ==
PROVIDERS: PCP Family Medicine; Visit Provider Nurse Practitioner Family
DX: E03.9 Hypothyroidism, unspecified (principal); D64.9 Anemia, unspecified; R73.09 Other abnormal glucose; E87.6 Hypokalemia; Z13.9 Encounter for screening, unspecified

== ENCOUNTER 2024-01-17 13:49 | Outpatient (REF) | payer OTHER, SELFPAY ==
[2024-01-17 17:31] LABS: Appearance Urine Clear; Color Urine Yellow; Glucose Urine UA Negative (Negative); Leukocyte Esterase Urine Trace (Negative); Nitrite Urine Negative (Negative); PH 5.5 (5.0-9.0); Specific Gravity - Urine 1.015 (1.005-1.025); UMIC TRIGGER UA YES; Urine Blood Negative (Negative); Urine Ketones Negative (Negative); Urine Protein Negative (Neg-Trace)
[2024-01-17 17:37] LABS: Hematocrit 37.8 % (37.0-47.0); Hemoglobin 12.9 g/dl (12.0-16.0); Mean Corpuscular HGB Conc 34.1 g/dl (31.0-35.0); Mean Corpuscular Hemoglobin 31.8 pg (27.0-33.0); Mean Corpuscular Volume 93.1 fL (80.0-98.0); Mean Platelet Volume 10.2 fL (9.4-12.3); Platelet Count 259 X10*3/uL (160-400); Red Blood Count 4.06 X10*6/uL (4.20-5.50); Red Cell Distribution Width 13.2 % (11.0-16.0); White Blood Count 5.6 X10*3/uL (4.8-10.8)
[2024-01-17 17:37] LABS: Bacteria Urine None Seen (None Seen); Hyaline Casts Urine 0-2 /LPF (0-2); RBC Urine 0-2 /HPF (0-2); Squamous Epithelial Cell Urine 0-2 /HPF (0-2); WBC Urine 0-5 /HPF (0-5)
[2024-01-17 17:57] LABS: Alanine Aminotransferase 27 U/L (0-31); Albumin Level 4.5 g/dL (3.5-5.0); Alkaline Phosphatase 102 U/L (39-117); Anion Gap 9 (12-20); Aspartate Amino Transferase 24 U/L (5-31); Bilirubin Total 0.3 mg/dL (0.0-1.0); Blood Urea Nitrogen 11 mg/dL (9-16); Carbon Dioxide 28 mmol/L (22-29); Chloride 108 mmol/L (96-108); Estimated Glomerular Filt Rate > 60; Glucose Random 87 mg/dL (60-115); Iron 105 mcg/dL (30-160); Magnesium 2.3 mg/dL (1.6-2.6); Percent Iron Saturation 38 % (15-50); Phosphorus 3.4 mg/dL (2.7-4.5); Potassium 3.8 mmol/L (3.3-5.1); Sodium 141 mmol/L (135-145); Total Iron Binding Capacity 277 mcg/dL (228-428); Unsaturated Iron Binding 172 ug/dL
[2024-01-17 18:19] LABS: Ferritin 74 ng/mL (10-250); TSH reflex Free T4 0.97 uIU/mL (0.32-4.0)
[2024-01-17 18:20] LABS: Folate 16.3 ng/mL (> or = 4.0); Vitamin B12 693 pg/mL (200-900)
== END 2024-01-17 13:50 | disposition home or self-care (01) ==
LOC: HO.WFDLDS 13:49
PROVIDERS: Referring Provider Nurse Practitioner Family; Visit Provider Family Medicine
DX: E03.9 Hypothyroidism, unspecified (principal); D64.9 Anemia, unspecified; R73.09 Other abnormal glucose; E87.6 Hypokalemia
CPT/HCPCS: 36415; 80053; 81001; 82607; 82728; 82746; 83036; 83540; 83735; 84100; 84443; 85027; 96127

== ENCOUNTER 2024-01-24 14:44 | Outpatient (REF) | payer OTHER, SELFPAY ==
--- OUTSIDE RECORDS SUMMARY | 2024-01-24 14:47 | XMS_ITS ---
Author Organization [facility] Address [address] [place] [address] Care Team Providers Care Adjunct Sociology Professor Name Role Phone Chema Payne Primary Care Provider Unavailab Meng Ugalde Unavailable [phone] REASON FOR VISIT Patient presents today for celiac disease Encounters Encounter Location Date Provider Diagnosis [facility] [address] [place] [address] 10/19/2022 Mneg [place] PLAN OF TREATMENT No Information
--- OUTSIDE RECORDS SUMMARY | 2024-01-24 14:47 | XMS_ITS | Patient Health Record ---
Author Organization [facility] Address [address] [place] [address] Care Team Providers Care Rn Clinical Review Name Role Phone Chema Payne Primary Care Provider UnavailMeng Rutherford Unavailable [phone] ALLERGIES Allergen (clinical drug ingredient) Drug/Non Drug [...] bedt kaylene Orally Once a day Active [place] Carbonate ER 450 MG 2 tablet at [...] Constipation, unspecified constipation type (K59.00) Active confirmed 75108044 Problem Celiac disease (K90.0) Active confirmed 361446472 Problem Encounter for screening for malignant neoplasm of colon (Z12.11) Active confirmed 131965178 Problem Pharyngoesophageal dysphagia (R13.14) Active confirmed 84497055 Problem Slow transit constipation (K59.01) Active confirmed 29232559 Problem Constipation (K59.00) Active confirmed Constipation (38929939) Problem Abdominal distension (R14.0) Active confirmed Flatulence, eructation and gas pain (494924584) Problem Abnormal findings on diagnostic imaging of other abdominal regions, including retroperitoneum (R93.5) Active confirmed Imaging of abdomen abnormal (282902445) Problem Pelvic floor dysfunction in female (M62.89) Active confirmed 532551752 PLAN OF TREATMENT Pending Test Test Name [...] [employer] [address] [address] [place] [address] [id number] SHIRA LEIJA Self - patient is the insured MEDICAL (GENERAL) HISTORY Medical History History ICD Code Bipolar ADHD PTSD She stays on a gluten-free d iet-has had a positive [facility] Ceila Disease Genetic Profile, although her [...] colon. Fecal defecography study in 09/2021 at [facility] revealed no significant change in the [...] relatively atonic and insensate rectum. A Denies [place],DM,CVA,Lung disease,renal dise ase Cystocele--surgery as below Hypothyroidism [...]
--- OUTSIDE RECORDS SUMMARY | 2024-01-24 14:47 | XMS_ITS ---
Author Organization [facility] Address [address] [place] [address] Care Team Providers Care Foam Rubber Fabricator Name Role Phone Chema Panye Primary Care Provider Unavailab Meng Ugalde Unavailable [phone] REASON FOR VISIT Pt no show Encounters Encounter Location Date Provider Diagnosis [facility] [address] [place] [address] 10/19/2022 Meng [place] PLAN OF TREATMENT No Information
[2024-01-24 18:05] LABS: Vitamin D 25-OH Total 60.7 ng/mL (>30)
[2024-01-24 18:11] LABS: Parathyroid Hormone Intact 68.4 pg/mL (8.7-77.1)
[2024-01-26 11:13] LABS: Calcium, Ionized 5.9 mg/dL (4.7-5.5)
== END 2024-01-24 14:45 | disposition home or self-care (01) ==
LOC: HO.WFDLDS 14:44
PROVIDERS: Visit Provider Nurse Practitioner Family
DX: E83.52 Hypercalcemia (principal)
CPT/HCPCS: 36415; 82306; 82330; 83970

== ENCOUNTER 2024-02-12 16:41 | Outpatient (AMB) | payer OTHER, SELFPAY ==
--- NOTE | 2024-02-12 16:44 | A.OFFPC_ITS ---
"Vital Signs 02/12/24 16:48 Height 5 ft 3 in Weight 131 lb BMI 23.2 Intake Visit Reasons: restless legs Allergies midazolam [From VERSED] Allergy (Intermediate, Verified 02/12/24 16:46) HYPERACTIVITY, increased hyperactivity hydromorphone [From Dilaudid] Allergy (Unknown, Verified 02/12/24 16:46) ITCHING Medication List - Last Reconciled 02/12/24 by BELTRAN Presley-BC biotin mcg PO bisacodyl 5 mg PO BEDTIME carbamazepine ER (Tegretol XR) 100 mg PO DAILY cholecalciferol (vitamin D3) 50 mcg PO DAILY eszopiclone (Lunesta) 3 mg PO BEDTIME lactobacillus combination no.4 (Probiotic) 3,000 mmu cells PO DAILY lamotrigine (Lamictal) 200 mg PO DAILY levothyroxine 75 mcg (1.5 x 50 mcg) PO DAILY 90 days methylphenidate HCl (Ritalin) 20 mg PO BID multivitamin 1 tab PO DAILY Tobacco use date assessed: 04/21/23 Dental Screening Dental Screen Date: 04/21/23 HPI HPI Comments History of Present Illness Details History of Present Illness The patient is a 58-year-old female presenting with a follow-up for hypercalcemia and restless leg syndrome. Initially seen on January 16 for these issues, the patient was advised to cease calcium supplementation after previous normal calcium levels became elevated. High calcium levels persist despite discontinuation of supplements. The patient has experienced new bone pain, left shoulder discomfort started in the last few months. No imaging studies have previously been conducted. She reports significant deconditioning and weight loss of approximately 8-9 pounds since a surgery on November 07, during which she was advised against physical exertion. Moreover, the patient expresses chronic issues related to irritable bowel syndrome, colonic inertia, and celiac disease, managed conservatively with the prospect of surgical intervention declined. Throughout the post-operative period, these symptoms have persisted, causing persistent distress. Review of Systems - Musculoskeletal: Reports left shoulder pain. - Gastrointestinal: Reports irritable jessi wels and chronic constipation/diarrhea. Denies abdominal pain. - Endocrine: Reports increased thirst. - Neurological: Reports restless legs. - General: Reports weight loss following surgery. results Labs from 01/17/24 reviewed w/ her Labs from 01/24/24 reviewed w her Plan - Discontinue multivitamin and vitamin D supplementation. Reassess calcium levels in two weeks. - Arrange a CT scan of the chest with in clusion of the left shoulder anatomy; also CT of abd - Continue current management of restles s leg syndrome, review medication effectiveness with neurologist. Patient was informed and verbally consented to the use of an ambient scribe for clinic note documentation during this visit. Discussion Notes In today's consultation, I discussed with the patient that her elevated calcium levels could stem from various causes, one being malignancy, though the specifics of recent weight loss and thirst require further evaluation. Discontinuation of multivitamins and vitamin D was advised to determine any impact on her calcium levels. Imaging studies were discussed as a diagnostic step to explore potential underlying causes, particularly since new shoulder symptoms arose recently. The patient understands the reasoning behind these investigations. Concerning restless leg syndrome, medication adjustments documented at the last visit remain under the care of her psychologist, with reports of persistently disturbed sleep. She was informed that follow-up will be necessary post-imaging and labs to assess progress and any need for alteration in management. This note is constructed using voice recognition software. While every effort has been made to ensure accuracy in neurology physician, still errors may have been included Sometimes, these errors may affect the content or meaning of the given sentence . Total time spent caring for the patient today was 40 minutes. This includes time spent before the visit reviewing the chart, time spent during the visit, and time spent after the visit on documentation [facility] Medical History (Updated 02/13/24 @ 15:45 by Sarah Lugo, [facility]) History of cystocele Hypothyroid Hypercholesterolemia Constipation by delayed colonic transit Celiac disease PTSD (post-traumatic stress disorder) ADHD Bipolar 1 disorder Surgical History Hx of colonoscopy Hx of esophagogastroduodenoscopy History of breast augmentation History of appendectomy History of tonsillectomy H/O breast augmentation H/O: hysterectomy Social History Household Members: None Housing: Condominium Are you a primary manager medicare marketing to a significant other at home: No Do you presently have visiting nurse or other home services: No Alcohol intake: never Patient Tobacco Use Status: Never used Tobacco e-Cigarette/Vaping Use: Never Used service: No 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 Meng Sosa, Elen Guzman, Tamir Mendes and colleagues, with an educational dorota from [employer]. Physical exam (Primary Care) BMI result Body Mass Index 23.2 Tobacco/Smoking Status: Tobacco use Status Tobacco use date assessed 04/21/23 02/12/24 16:46 Patient Tobacco Use Status Never used Tobacco 02/12/24 16:46 e-Cigarette/Vaping Use Never Used 02/12/24 16:46 Thrive Assessment: Date of Thrive Assessment Date Thrive assessed 01/17/24 02/12/24 16:46 Telehealth Telehealth Telehealth Platform: [employer] | [email or web address] Location of provider rendering services: practice address Location of patient: address on file Patient Identification confirmed using: Name, : Yes Telehealth method: voice only Patient verbally consented to treatment: Yes Patient verbally consented to billing insurance company: Yes Patient informed of any privacy concerns related to visit: Yes Minutes spent on Phone/Video with Pt.: 20 Coding Level of Care Code Tele Est Pt Level 5 (51942) Complex EM visit Add On G2211 Diagnoses Serum calcium elevated E83.52 Weight loss R63.4 Bone pain of shoulder M89.8X1 Constipation by delayed colonic transit K59.01 Irritable bowel syndrome with both constipation and diarrhea K58.2 Irritable bowel syndrome type: with both diarrhea and constipation Assessment & Plan Assessment & Plan (1) Serum calcium elevated: Code(s): E83.52 - Hypercalcemia Category: Medical (2) Weight loss: Code(s): R63.4 - Abnormal weight loss Category: Medical (3) Bone pain of shoulder: Code(s): M89.8X1 - Other specified disorders of bone, shoulder Category: Medical (4) Weight loss: Code(s): R63.4 - Abnormal weight loss Category: Medical (5) Constipation by delayed colonic transit: Code(s): K59.01 - Slow transit constipation Category: Medical (6) Irritable bowel syndrome: Code(s): K58.9 - Irritable bowel syndrome, unspecified Category: Medical Qualifiers: Irritable bowel syndrome type: with both diarrhea and constipation Qualified Code(s): K58.2 - Mixed irritable bowel syndrome Plan . Orders: Orders Calcium, Ionized 2 Weeks E83.52 - Hypercalcemia, M89.8X1 - Other specified disorders of bone, shoulder, R63.4 - Abnormal weight loss TSH reflex Free T4 2 Weeks E83.52 - Hypercalcemia, M89.8X1 - Other specified disorders of bone, shoulder, R63.4 - Abnormal weight loss Vitamin D 25-OH Total 2 Weeks E83.52 - Hypercalcemia, M89.8X1 - Other specified disorders of bone, shoulder, R63.4 - Abnormal weight loss CT chest w IV con 02/12/24 E83.52 - Hypercalcemia, M89.8X1 - Other specified disorders of bone, shoulder CT abdomen pelvis w IV con 02/12/24 E83.52 - Hypercalcemia, K58.9 - Irritable bowel syndrome, unspecified, K59.01 - Slow transit constipation, R63.4 - Abnormal weight loss Comprehensive Met. Panel 2 Weeks E83.52 - Hypercalcemia, M89.8X1 - Other specified disorders of bone, shoulder, R63.4 - Abnormal weight loss Parathyroid Hormone Intact 2 Weeks E83.52 - Hypercalcemia, M89.8X1 - Other specified disorders of bone, shoulder, R63.4 - Abnormal weight loss Parathyroid Hormone Related Pr 2 Weeks E83.52 - Hypercalcemia, M89.8X1 - Other specified disorders of bone, shoulder, R63.4 - Abnormal weight loss Vitamin D 1,25 dihydroxy 2 Weeks E83.52 - Hypercalcemia, M89.8X1 - Other specified disorders of bone, shoulder, R63.4 - Abnormal weight loss"
[2024-02-12 16:48] VITALS: BMI 23.2
--- OUTSIDE RECORDS SUMMARY | 2024-02-12 17:41 | XMS_ITS ---
Author Organization [facility] Address [address] [place] [address] Care Team Providers Care Supervisor Die Casting Name Role Phone Chema Payne Primary Care Provider Unavailab Meng Ugalde Unavailable [phone] REASON FOR VISIT Patient presents today for celiac disease Encounters Encounter Location Date Provider Diagnosis [facility] [address] [place] [address] 10/19/2022 Meng Wakefield PLAN OF TREATMENT No Information
--- OUTSIDE RECORDS SUMMARY | 2024-02-12 17:41 | XMS_ITS | Patient Health Record ---
Author Organization [facility] Address [address] [place] [address] Care Team Providers Care Cooker Operator Name Role Phone Cehma Payne Primary Care Provider UnavailMeng Rutherford Unavailable [phone] ALLERGIES Allergen (clinical drug ingredient) Drug/Non Drug [...] bedt kaylene Orally Once a day Active [place] Carbonate ER 450 MG 2 tablet at [...] Constipation, unspecified constipation type (K59.00) Active confirmed 85529177 Problem Celiac disease (K90.0) Active confirmed 727746448 Problem Encounter for screening for malignant neoplasm of colon (Z12.11) Active confirmed 741819591 Problem Pharyngoesophageal dysphagia (R13.14) Active confirmed 26460482 Problem Slow transit constipation (K59.01) Active confirmed 96606035 Problem Constipation (K59.00) Active confirmed Constipation (81148411) Problem Abdominal distension (R14.0) Active confirmed Flatulence, eructation and gas pain (041709264) Problem Abnormal findings on diagnostic imaging of other abdominal regions, including retroperitoneum (R93.5) Active confirmed Imaging of abdomen abnormal (325989631) Problem Pelvic floor dysfunction in female (M62.89) Active confirmed 237589074 Encounters Encounter Location Date Provider Diagnosis [facility] [address] [place] [address] 02/04/2024 Meng Wakefield PLAN OF TREATMENT Pending Test Test Name [...] End Date [employer] [address] [address] [place] [address] [id number] 3 HELADIO SHIRA Self - patient is the insured MEDICAL (GENERAL) HISTORY Medical History History ICD Code Bipolar ADHD PTSD She stays on a gluten-free d iet-has had a positive [employer] Ceilac Disease Genetic Profile, although her duodenal biopsies [...] colon. Fecal defecography study in 09/2021 at [facility] revealed no significant change in the [...] relatively atonic and insensate rectum. A Denies [place],DM,CVA,Lung disease,renal dise ase Cystocele--surgery as below Hypothyroidism Negative colonoscopy [place] [address] Cindy peterson Negative EGD [place] [address] Radha [...]
--- OUTSIDE RECORDS SUMMARY | 2024-02-12 17:41 | XMS_ITS ---
Author Organization [facility] Address [address] [place] [address] Care Team Providers Care Screw Machine Set Up Operator Tool Name Role Phone Chema Payne Primary Care Provider Unavailab Meng Ugalde Unavailable [phone] REASON FOR VISIT Rosa needs these disability forms JP Encounters Encounter Location Date Provider Diagnosis [facility] [address] [place] [address] 02/04/2024 Meng Wakefield PLAN OF TREATMENT No Information
--- OUTSIDE RECORDS SUMMARY | 2024-02-12 17:41 | XMS_ITS ---
Author Organization [facility] Address [address] [place] [address] Care Team Providers Care Armor Reconnaissance Vehicle Driver Name Role Phone Chema Payne Primary Care Provider Unavailab Meng Ugalde Unavailable [phone] REASON FOR VISIT Pt no show Encounters Encounter Location Date Provider Diagnosis [facility] [address] [place] [address] 10/19/2022 Meng Wakefield PLAN OF TREATMENT No Information
== END 2024-02-12 17:10 | disposition home or self-care (01) ==
LOC: HO.HMCFM 16:41
PROVIDERS: PCP Nurse Practitioner Family; Visit Provider Nurse Practitioner Family
DX: E83.52 Hypercalcemia (principal); R63.4 Abnormal weight loss; M89.8X1 Other specified disorders of bone, shoulder; K59.01 Slow transit constipation; K58.2 Mixed irritable bowel syndrome

== ENCOUNTER 2024-02-14 13:36 | Outpatient (REF) | payer SELFPAY ==
--- OUTSIDE RECORDS SUMMARY | 2024-02-14 13:39 | XMS_ITS ---
Author Organization [facility] Address [address] [place] [address] Care Team Providers Care Rate Manager Name Role Phone Chema Payne Primary Care Provider Unavailab Meng Ugalde Unavailable [phone] REASON FOR VISIT Pt no show Encounters Encounter Location Date Provider Diagnosis [facility] [address] [place] [address] 10/19/2022 Meng Wakefield PLAN OF TREATMENT No Information
--- OUTSIDE RECORDS SUMMARY | 2024-02-14 13:39 | XMS_ITS ---
Author Organization [facility] Address [address] [place] [address] Care Team Providers Care Canned Food Reconditioning Inspector Name Role Phone Chema Payne Primary Care Provider Unavailab Meng Ugalde Unavailable [phone] REASON FOR VISIT Patient presents today for celiac disease Encounters Encounter Location Date Provider Diagnosis [facility] [address] [place] [address] 10/19/2022 Meng Wakefield PLAN OF TREATMENT No Information
--- OUTSIDE RECORDS SUMMARY | 2024-02-14 13:39 | XMS_ITS | Patient Health Record ---
Author Organization [facility] Address [address] [place] [address] Care Team Providers Care Manager Security And Safety Name Role Phone Chema Payne Primary Care Provider UnavailMeng Rutherford Unavailable [phone] ALLERGIES Allergen (clinical drug ingredient) Drug/Non Drug [...] bedt kaylene Orally Once a day Active [place] Carbonate ER 450 MG 2 tablet at [...] Constipation, unspecified constipation type (K59.00) Active confirmed 39420203 Problem Celiac disease (K90.0) Active confirmed 411981045 Problem Encounter for screening for malignant neoplasm of colon (Z12.11) Active confirmed 964482471 Problem Pharyngoesophageal dysphagia (R13.14) Active confirmed 08560641 Problem Slow transit constipation (K59.01) Active confirmed 20678242 Problem Constipation (K59.00) Active confirmed Constipation (38512006) Problem Abdominal distension (R14.0) Active confirmed Flatulence, eructation and gas pain (183866546) Problem Abnormal findings on diagnostic imaging of other abdominal regions, including retroperitoneum (R93.5) Active confirmed Imaging of abdomen abnormal (894283193) Problem Pelvic floor dysfunction in female (M62.89) Active confirmed 404168307 Encounters Encounter Location Date Provider Diagnosis [facility] [address] [place] [address] 02/04/2024 Meng Wakefield PLAN OF TREATMENT Pending [...] [employer] [address] [address] [address] [place] [address] [id number] 3 HELADIO SHIRA Self - patient is the insured MEDICAL (GENERAL) HISTORY Medical History History ICD Code Bipolar ADHD PTSD She stays on a gluten-free d iet-has had a positive [employer] Ceilac Disease Genetic Profile, although her duodenal [...] colon. Fecal defecography study in 09/2021 at [facility] revealed no significant change in the [...] relatively atonic and insensate rectum. A Denies MS,DM,CVA,Lung disease,renal dise ase Cystocele--surgery as below Hypothyroidism [...]
--- OUTSIDE RECORDS SUMMARY | 2024-02-14 13:39 | XMS_ITS ---
Author Organization [facility] Address [address] [place] [address] Care Team Providers Care Alteration Worker Name Role Phone Chema Payne Primary Care Provider Unavailab Meng Ugalde Unavailable [phone] REASON FOR VISIT Rosa needs these disability forms JP Encounters Encounter Location Date Provider Diagnosis [facility] [address] [place] [address] 02/04/2024 Meng Wakefield PLAN OF TREATMENT No Information
== END 2024-02-14 13:37 | disposition home or self-care (01) ==
LOC: HO.HAP 13:36
PROVIDERS: Visit Provider Family Medicine
DX: Z13.89 Encounter for screening for other disorder (principal)

== ENCOUNTER 2024-02-19 14:11 | Outpatient (REF) | payer SELFPAY ==
--- NOTE | 2024-02-19 15:41 | MHC.AU.HA3 ---
Hearing Instrument Follow-Up- Binaural Date of Visit: 02/19/24 Right Ear: Make, Model, Color, Serial Number: Oticon Intent 1 miniRITE-R SN: [id number] Color: Blue Mathematical Engineer Repair Warranty: 07/07/2026 Mathematical Engineer Loss and Damage Warranty: 07/07/2026 [facility] Service Plan: [employer] [facility] [employer] employee Battery Size: Rechargeable Jacquard Card Cutter/Slim Tube: 2/60 Earmold/Dome/CShell/SlimTip:6mm open dome Type of Wax Guard: miniFit Dispensed By: [facility] Date of Fittin07/05/2023 Left Ear: Make, Model, Color, Serial Number: Oticon Intent 1 miniRITE-R SN: [id number] Color: Blue Mathematical Engineer Repair Warranty: 07/07/2026 Mathematical Engineer Loss and Damage Warranty: 07/07/2026 [facility] Service Plan: [employer] [facility] [facility] employee Battery Size: Rechargeable Jacquard Card Cutter/Slim Tube: 2/60 Earmold/Dome/CShell/SlimTip: 6mm open dome Type of Wax Guard: miniFit Dispensed By: [facility] Date of Fittin07/05/2023 Follow-Up Summary: Aids dropped off, cat chewed . Found both receivers chewed up. Cleaned aids. No 2 60 in stock. Ordered replacements. Aids and case stored in repair drawer. Call to crab picker. Recommendations: Recommendations: Patient will be contacted when materials have arrived. Diagnosis Code(s): Primary Diagnosis: H90.3 Bilateral Sensorineural Hearing Loss Secondary Diagnosis: H93.13 Tinnitus, Bilateral Signature: Provider: Aureliano Chavez, [facility]
--- OUTSIDE RECORDS SUMMARY | 2024-02-19 17:53 | XMS_ITS ---
Author Organization [facility] Address [address] [place] [address] Care Team Providers Care Quality Assurance Associate Name Role Phone Chema Payne Primary Care Provider Unavailab Meng Ugalde Unavailable [phone] REASON FOR VISIT Patient presents today for celiac disease Encounters Encounter Location Date Provider Diagnosis [facility] [address] [place] [address] 10/19/2022 Meng Wakefield PLAN OF TREATMENT No Information
--- OUTSIDE RECORDS SUMMARY | 2024-02-19 17:53 | XMS_ITS ---
Author Organization [facility] Address [address] [place] [address] Care Team Providers Care Saddle Lining Stitcher Name Role Phone Chema Payne Primary Care Provider Unavailab Meng Ugalde Unavailable [phone] REASON FOR VISIT Pt no show Encounters Encounter Location Date Provider Diagnosis [facility] [address] [place] [address] 10/19/2022 Meng Wakefield PLAN OF TREATMENT No Information
--- OUTSIDE RECORDS SUMMARY | 2024-02-19 17:53 | XMS_ITS | Patient Health Record ---
Author Organization [facility] Address [address] [place] [address] Care Team Providers Care Office Machines Teacher Name Role Phone Chema Payne Primary Care Provider UnavailMeng Rutherford Unavailable [phone] ALLERGIES Allergen (clinical drug ingredient) Drug/Non Drug [...] bedt kaylene Orally Once a day Active [place] Carbonate ER 450 MG 2 tablet at [...] Constipation, unspecified constipation type (K59.00) Active confirmed 43368853 Problem Celiac disease (K90.0) Active confirmed 369901848 Problem Encounter for screening for malignant neoplasm of colon (Z12.11) Active confirmed 951818790 Problem Pharyngoesophageal dysphagia (R13.14) Active confirmed 71335029 Problem Slow transit constipation (K59.01) Active confirmed 15848179 Problem Constipation (K59.00) Active confirmed Constipation (70540440) Problem Abdominal distension (R14.0) Active confirmed Flatulence, eructation and gas pain (882640483) Problem Abnormal findings on diagnostic imaging of other abdominal regions, including retroperitoneum (R93.5) Active confirmed Imaging of abdomen abnormal (641547259) Problem Pelvic floor dysfunction in female (M62.89) Active confirmed 464669032 Encounters Encounter Location Date Provider Diagnosis [facility] [address] [place] [address] 02/04/2024 Meng Wakefield PLAN OF TREATMENT Pending [...] [employer] [place] [address] [address] [place] [address] [id number] 3 HELADIO SHIRA Self - patient is the insured MEDICAL (GENERAL) HISTORY Medical History History ICD Code Bipolar ADHD PTSD She stays on a gluten-free d iet-has had a positive [employer] Ceilac Disease Genetic Profile, although her duodenal [...] colon. Fecal defecography study in 09/2021 at [facility] revealed no significant change in the [...] relatively atonic and insensate rectum. A Denies [place],DM,CVA,Lung disease,renal dise ase Cystocele--surgery as below Hypothyroidism [...]
== END 2024-02-19 14:12 | disposition home or self-care (01) ==
LOC: HO.HAP 14:11
PROVIDERS: Visit Provider Nurse Practitioner Family
DX: Z13.89 Encounter for screening for other disorder (principal)

== ENCOUNTER 2024-02-19 14:30 | Outpatient (REF) | payer OTHER, SELFPAY ==
--- NOTE | ~2024-02-19 | CT_ITS ---
EXAMINATION: CT CHEST WITH IV CONTRAST, CT ABDOMEN PELVIS WITH IV CONTRAST INDICATION: E83.52 - Hypercalcemia COMPARISON: Comparison is made with the prior chest CT dated 04/30/[address] of the abdomen and pelvis dated 10/21/2021.. TECHNIQUE: CT scan of the chest, abdomen and pelvis was performed following administration of 85 mL Omnipaque 350 using standard departmental protocol. Coronal and sagittal reformatted images were generated and reviewed. Oral contrast material was not administered at the request of the referring physician. This CT exam was performed with one or more of the following dose reduction techniques: automated exposure control, adjustment of the mA and/or kV according to patient size, use of iterative reconstruction technique. DLP: 345 mGy-cm CHEST: THYROID: The visualized portion of the thyroid is unremarkable. LUNGS: The lungs are clear. MEDIASTINUM: There is no mediastinal lymphadenopathy. LELAND: There is no hilar lymphadenopathy. CARDIOVASCULATURE: The heart is normal in size. There is no pericardial effusion. There is dilatation of the descending thoracic aorta measuring 3.7 cm in diameter. DEGREE OF CORONARY CALCIFICATION: none PLEURA: There is no pleural effusion. No pneumothorax. MAIN AIRWAYS: The mainstem bronchi and proximal branches are patent. AXILLA: There is no axillary lymphadenopathy. SOFT TISSUES: Bilateral breast implants are seen in place. BONES: The bones are intact. ABDOMEN: LIVER: The liver is normal in size and contour. Multiple cysts are again noted in the liver measuring up to 1.3 cm in size. The hepatic and portal veins are patent. GALLBLADDER / BILE DUCTS: The gallbladder is unremarkable. There is no intra or extrahepatic biliary ductal dilatation. SPLEEN: The spleen is normal in size. No focal splenic lesion is identified. PANCREAS: The pancreas is unremarkable in appearance. ADRENAL GLANDS: Within normal limits. KIDNEYS/RETROPERITONEUM: No renal calculi are identified. There is no hydronephrosis. No renal masses are identified. LYMPH NODES: No abdominal or pelvic lymphadenopathy. VASCULATURE: The abdominal aorta is normal in caliber. MESENTERY/PERITONEUM: No free fluid. No masses. There is no free intraperitoneal gas. STOMACH: The stomach is unremarkable. SMALL BOWEL: The small bowel is normal in caliber. COLON: There is a large amount of stool throughout the colon. APPENDIX: The appendix is surgically absent. URINARY BLADDER/PELVIC ORGANS: The urinary bladder is collapsed, limiting detailed evaluation. The patient is status post hysterectomy. BONES / SOFT TISSUES: No suspicious bony or soft tissue abnormalities. CT/CT chest w IV con IMPRESSION: 1. Dilatation of the ascending thoracic aorta measuring up to 3.7 cm in diameter. 2. Multiple hepatic cysts. Large amount of stool throughout the colon. 3. Otherwise unremarkable contrast-enhanced CT of the chest, abdomen, and pelvis. Please note that the shoulders are nearly completely excluded from the [id number]. If there is clinical concern for shoulder pathology, dedicated imaging of the shoulders is recommended. Electronically signed by: Meng Paez MD 02/19/2024 03:47 PM RUI
--- NOTE | ~2024-02-19 | CT_ITS ---
EXAMINATION: CT CHEST WITH IV CONTRAST, CT ABDOMEN PELVIS WITH IV CONTRAST INDICATION: E83.52 - Hypercalcemia COMPARISON: Comparison is made with the prior chest CT dated 04/30/[address] of the abdomen and pelvis dated 10/21/2021.. TECHNIQUE: CT scan of the chest, abdomen and pelvis was performed following administration of 85 mL Omnipaque 350 using standard departmental protocol. Coronal and sagittal reformatted images were generated and reviewed. Oral contrast material was not administered at the request of the referring physician. This CT exam was performed with one or more of the following dose reduction techniques: automated exposure control, adjustment of the mA and/or kV according to patient size, use of iterative reconstruction technique. DLP: 345 mGy-cm CHEST: THYROID: The visualized portion of the thyroid is unremarkable. LUNGS: The lungs are clear. MEDIASTINUM: There is no mediastinal lymphadenopathy. LELAND: There is no hilar lymphadenopathy. CARDIOVASCULATURE: The heart is normal in size. There is no pericardial effusion. There is dilatation of the descending thoracic aorta measuring 3.7 cm in diameter. DEGREE OF CORONARY CALCIFICATION: none PLEURA: There is no pleural effusion. No pneumothorax. MAIN AIRWAYS: The mainstem bronchi and proximal branches are patent. AXILLA: There is no axillary lymphadenopathy. SOFT TISSUES: Bilateral breast implants are seen in place. BONES: The bones are intact. ABDOMEN: LIVER: The liver is normal in size and contour. Multiple cysts are again noted in the liver measuring up to 1.3 cm in size. The hepatic and portal veins are patent. GALLBLADDER / BILE DUCTS: The gallbladder is unremarkable. There is no intra or extrahepatic biliary ductal dilatation. SPLEEN: The spleen is normal in size. No focal splenic lesion is identified. PANCREAS: The pancreas is unremarkable in appearance. ADRENAL GLANDS: Within normal limits. KIDNEYS/RETROPERITONEUM: No renal calculi are identified. There is no hydronephrosis. No renal masses are identified. LYMPH NODES: No abdominal or pelvic lymphadenopathy. VASCULATURE: The abdominal aorta is normal in caliber. MESENTERY/PERITONEUM: No free fluid. No masses. There is no free intraperitoneal gas. STOMACH: The stomach is unremarkable. SMALL BOWEL: The small bowel is normal in caliber. COLON: There is a large amount of stool throughout the colon. APPENDIX: The appendix is surgically absent. URINARY BLADDER/PELVIC ORGANS: The urinary bladder is collapsed, limiting detailed evaluation. The patient is status post hysterectomy. BONES / SOFT TISSUES: No suspicious bony or soft tissue abnormalities. CT/CT abdomen pelvis w IV con IMPRESSION: 1. Dilatation of the ascending thoracic aorta measuring up to 3.7 cm in diameter. 2. Multiple hepatic cysts. Large amount of stool throughout the colon. 3. Otherwise unremarkable contrast-enhanced CT of the chest, abdomen, and pelvis. Please note that the shoulders are nearly completely excluded from the [id number]. If there is clinical concern for shoulder pathology, dedicated imaging of the shoulders is recommended. Electronically signed by: Meng Paez MD 02/19/2024 03:47 PM RUI
[2024-02-19] MEDS: iohexoL 350 MG/ML 100 ML INFUS..BTL 85 ML IV (15:23)
--- OUTSIDE RECORDS SUMMARY | 2024-02-19 18:32 | XMS_ITS ---
Author Organization [facility] Address [address] [place] [address] Care Team Providers Care Instructor Trainer Canine Service Name Role Phone Chema Payne Primary Care Provider Unavailab Meng Ugalde Unavailable [phone] REASON FOR VISIT Rosa needs these disability forms JP Encounters Encounter Location Date Provider Diagnosis [facility] [address] [place] [address] 02/04/2024 Meng Wakefield PLAN OF TREATMENT No Information
[2024-02-20 07:52] LABS: Creatinine POC 0.7 mg/dL (0.5-1.4); GFR POC > 60
== END 2024-02-19 14:31 | disposition home or self-care (01) ==
LOC: HO.CT 14:30
PROVIDERS: PCP Nurse Practitioner Family; Visit Provider Nurse Practitioner Family
DX: E83.52 Hypercalcemia (principal); M89.8X1 Other specified disorders of bone, shoulder; K59.01 Slow transit constipation; K58.9 Irritable bowel syndrome, unspecified; R63.4 Abnormal weight loss
CPT/HCPCS: 71260; 74177; 82565; Q9967

== ENCOUNTER → 2024-02-19 14:36 | Outpatient (BNV) | payer OTHER, SELFPAY | PROVIDERS: PCP Nurse Practitioner Family; Visit Provider Radiology Diagnostic Radiology | DX: E83.52 Hypercalcemia (principal) | CPT/HCPCS: 71260; 74177 ==

== ENCOUNTER 2024-02-26 13:18 | Outpatient (REF) | payer SELFPAY | END 2024-02-26 13:19 | disposition home or self-care (01) | LOC: HO.HAP 13:18 | PROVIDERS: Visit Provider Nurse Practitioner Family | DX: Z13.89 Encounter for screening for other disorder (principal) ==

== ENCOUNTER 2024-02-26 13:25 | Outpatient (REF) | payer OTHER, SELFPAY ==
[2024-02-26 14:21] LABS: Parathyroid Hormone Intact 100.7 pg/mL (8.7-77.1)
[2024-02-26 14:22] LABS: Alanine Aminotransferase 19 U/L (0-31); Albumin Level 4.3 g/dL (3.5-5.0); Alkaline Phosphatase 108 U/L (39-117); Anion Gap 13 (12-20); Aspartate Amino Transferase 22 U/L (5-31); Bilirubin Total 0.3 mg/dL (0.0-1.0); Blood Urea Nitrogen 12 mg/dL (9-16); Calcium 9.1 mg/dL (8.4-10.2); Carbon Dioxide 26 mmol/L (22-29); Chloride 108 mmol/L (96-108); Estimated Glomerular Filt Rate > 60; Glucose Random 86 mg/dL (60-115); Potassium 4.5 mmol/L (3.3-5.1); Sodium 142 mmol/L (135-145); Total Protein 6.9 g/dL (6.5-8.0)
[2024-02-26 14:39] LABS: TSH reflex Free T4 1.58 uIU/mL (0.32-4.0); Vitamin D 25-OH Total 53.2 ng/mL (>30)
[2024-02-27 12:53] LABS: Calcium, Ionized 5.5 mg/dL (4.7-5.5)
[2024-03-01 16:29] LABS: Parathyroid Hormone Related Pr 13 pg/mL (11-20)
[2024-03-01 18:13] LABS: VITAMIN D (1,25 OH) D3 32 pg/mL; Vit D (1,25-Dihydroxy) Total 32 pg/mL (18-72); Vitamin D (1,25 OH) D2 <8 pg/mL
== END 2024-02-26 13:26 | disposition home or self-care (01) ==
LOC: HO.LAB 13:25
PROVIDERS: PCP Family Medicine; Visit Provider Nurse Practitioner Family
DX: M89.8X1 Other specified disorders of bone, shoulder (principal); R63.4 Abnormal weight loss; E83.52 Hypercalcemia
CPT/HCPCS: 36415; 80053; 82306; 82330; 82652; 83519; 83970; 84443

== ENCOUNTER 2024-02-28 14:23 | Outpatient (AMB) | payer OTHER, SELFPAY ==
--- NOTE | 2024-02-28 14:25 | A.OFFVIS_ITS ---
Vital Signs 02/28/24 14:26 Height 5 ft 3 in Weight 140 lb 10.479 oz BMI 24.9 BP 130/80 Blood Pressure Location Rt brachial Position Sitting Pulse 62 Pulse Source Pulse Oximeter Intake Visit Reasons: STAT referral-Primary hyperparathyroidism Intake Note: New patient present today for hyperparathyroidism office visit. 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: No Accompanied by: Spouse Allergies midazolam [From VERSED] Allergy (Intermediate, Verified 02/28/24 14:29) HYPERACTIVITY, increased hyperactivity hydromorphone [From Dilaudid] Allergy (Unknown, Verified 02/28/24 14:29) ITCHING Medication List - Last Reconciled 02/28/24 by Belkis Sarmiento MD bisacodyl 5 mg PO BEDTIME carbamazepine ER (Tegretol XR) 100 mg PO DAILY lactobacillus combination no.4 (Probiotic) 3,000 mmu cells PO DAILY lamotrigine (Lamictal) 200 mg PO DAILY levothyroxine 75 mcg (1.5 x 50 mcg) PO DAILY 90 days lorazepam 1 mg PO TID methylphenidate HCl (Ritalin) 20 mg PO BID mirtazapine (Remeron) 15 mg PO BEDTIME simvastatin 40 mg PO BEDTIME HPI Comments Details: 58-year-old female coming in today for initial evaluation of PTH mediated hypercalcemia. Here today with Dario . Labs from 01/17/2024 showed elevated calcium level of 11 with a albumin level of 4.5, corrected calcium would be 10.5, phosphorus normal at 3.4, magnesium normal at 2.3. Normal TSH of 0.97. Patient is on levothyroxine for hypothyroidism. Repeat labs 01/24/2024 showed high ionized calcium of 5.9, vitamin-D level of 60.7, PTH level inappropriately normal at 68.4. Repeat labs 02/26/2024 showed normal kidney function with a EGFR greater than 60, calcium of 9.1, ionized ca lcium 5.5, albumin of 4.3, vitamin-D level of 53.2, PTH of 100.7. No kidney stones No fractures No abd pain , has chronic constipation and then sometimes diarrhea, sees gasteroenterology, no mental status changes Denies increased urination thnks lost 10 lbs due to losing muscle due to decreased activity, now gaining it back due to increased activity Brother has recurrent kidney stones Was on lithium for years for bipolar disorder , psychiatrist Dr. Pedraza stopped it SeptemberOctober 2023 No history of HTN, not on HCTZ Was taking vitamin D 2000 units daily for years , stopped January 2024 Started calcium supplements 500 mg sinceApr2023 plus multivitamin which usually has about 200 mg of calcium , plus increased calcium in her diet, supplements stopped January 2024 Up until January 2024 before labs showed elevated calcium was taking 8 oz glass of milk in a day, 2 servings of yogurt daily, lots of cheese. Cut back now. DEXA scan 05/23/2023 showed osteopenia of the left femoral neck with T-score of- 1.4, normal bone density of the left femur total with T-score of-0.8, osteopenia of the lumbar spine with T-score of -1.1, FRAX not meeting treatment indication. CT chest abdomen pelvis done 02/19/2024 did not identify any concern for metastatic lesion. This was done by PCP while evaluating hypercalcemia. 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 Physical exam General: sitting comfortably in no acute distress HEENT: normocephalic/atraumatic Neck: supple, symmetrical, no thyromegaly , no dorsocervical or supraclavicular fat pads Cardiac: normal heart sounds Pulm: normal breath sounds B/L, no added breath sounds Abd: not distended Extremities: no edema Laboratory Tests 03/27/18 04/20/19 04/22/19 06:38 14:14 06:21 Hgb Hct Creatinine Estimated GFR Calcium 10.2 10.1 8.5 Phosphorus 2.7 Ionized Calcium Magnesium 2.2 2.4 Albumin 25-OH Vitamin D Total TSH PTH Intact 04/26/19 04/29/19 04/30/19 06:29 06:48 06:51 Hgb Hct Creatinine Estimated GFR Calcium Phosphorus 3.1 4.1 4.2 Ionized Calcium Magnesium 2.0 2.6 2.5 Albumin 25-OH Vitamin D Total TSH PTH Intact 05/02/19 05/17/19 08/05/19 05:59 16:47 12:24 Hgb Hct Creatinine Estimated GFR Calcium Phosphorus 3.5 Ionized Calcium Magnesium 2.5 2.6 Albumin 4.4 D 4.2 25-OH Vitamin D Total TSH PTH Intact 08/26/19 08/31/20 06/03/21 13:55 06:45 10:17 Hgb Hct Creatinine Estimated GFR Calcium 9.7 Phosphorus Ionized Calcium Magnesium Albumin 4.3 4.4 25-OH Vitamin D Total TSH PTH Intact 01/17/22 07/29/22 04/25/23 07:23 06:54 07:07 Hgb Hct Creatinine Estimated GFR Calcium 9.9 10.0 9.4 Phosphorus Ionized Calcium Magnesium Albumin 4.4 4.3 4.2 25-OH Vitamin D Total TSH PTH Intact 04/25/23 09/27/23 10/25/23 07:07 15:16 14:40 Hgb Hct Creatinine Estimated GFR Calcium 9.7 10.1 9.8 Phosphorus Ionized Calcium Magnesium Albumin 4.4 25-OH Vitamin D Total TSH PTH Intact 01/17/24 01/24/24 02/26/24 13:50 14:45 13:37 Hgb 12.9 Hct 37.8 Creatinine 0.71 Estimated GFR > 60 Calcium 11.0 H D 9.1 D Phosphorus 3.4 Ionized Calcium 5.9 H 5.5 Magnesium 2.3 Albumin 4.5 4.3 25-OH Vitamin D Total 60.7 53.2 TSH 0.97 1.58 PTH Intact 68.[address] chest 02/19/24 CT CHEST WITH IV CONTRAST, CT ABDOMEN PELVIS WITH IV CONTRAST INDICATION: E83.52 - Hypercalcemia COMPARISON: Comparison is made with the prior chest CT dated 04/30/[address] of the abdomen and pelvis dated 10/21/2021.. TECHNIQUE: CT scan of the chest, abdomen and pelvis was performed following administration of 85 mL Omnipaque 350 using standard departmental protocol. Coronal and sagittal reformatted images were generated and reviewed. Oral contrast material was not administered at the request of the referring physician. This CT exam was performed with one or more of the following dose reduction techniques: automated exposure control, adjustment of the mA and/or kV according to patient size, use of iterative reconstruction technique. DLP: 345 mGy-cm CHEST: THYROID: The visualized portion of the thyroid is unremarkable. LUNGS: The lungs are clear. MEDIASTINUM: There is no mediastinal lymphadenopathy. LELAND: There is no hilar lymphadenopathy. CARDIOVASCULATURE: The heart is normal in size. There is no pericardial effusion. There is dilatation of the descending thoracic aorta measuring 3.7 cm in diameter. DEGREE OF CORONARY CALCIFICATION: none PLEURA: There is no pleural effusion. No pneumothorax. MAIN AIRWAYS: The mainstem bronchi and proximal branches are patent. AXILLA: There is no axillary lymphadenopathy. SOFT TISSUES: Bilateral breast implants are seen in place. BONES: The bones are intact. ABDOMEN: LIVER: The liver is normal in size and contour. Multiple cysts are again noted in the liver measuring up to 1.3 cm in size. The hepatic and portal veins are patent. GALLBLADDER / BILE DUCTS: The gallbladder is unremarkable. There is no intra or extrahepatic biliary ductal dilatation. SPLEEN: The spleen is normal in size. No focal splenic lesion is identified. PANCREAS: The pancreas is unremarkable in appearance. ADRENAL GLANDS: Within normal limits. KIDNEYS/RETROPERITONEUM: No renal calculi are identified. There is no hydronephrosis. No renal masses are identified. LYMPH NODES: No abdominal or pelvic lymphadenopathy. VASCULATURE: The abdominal aorta is normal in caliber. MESENTERY/PERITONEUM: No free fluid. No masses. There is no free intraperitoneal gas. STOMACH: The stomach is unremarkable. SMALL BOWEL: The small bowel is normal in caliber. COLON: There is a large amount of stool throughout the colon. APPENDIX: The appendix is surgically absent. URINARY BLADDER/PELVIC ORGANS: The urinary bladder is collapsed, limiting detailed evaluation. The patient is status post hysterectomy. BONES / SOFT TISSUES: No suspicious bony or soft tissue abnormalities. CT/CT chest w IV con IMPRESSION: 1. Dilatation of the ascending thoracic aorta measuring up to 3.7 cm in diameter. 2. Multiple hepatic cysts. Large amount of stool throughout the colon. 3. Otherwise unremarkable contrast-enhanced CT of the chest, abdomen, and pelvis. Please note that the shoulders are nearly completely excluded from the [id number]. If there is clinical concern for shoulder pathology, dedicated imaging of the shoulders is recommended. BONE DENSITOMETRY 05/23/23 CLINICAL INDICATION: Age-related osteoporosis without current pathological fracture. COMPARISON: This is the patient's baseline examination. TECHNIQUE: Using a [employer] DXA System (software version: 13.1) manufactured by [employer], dual-energy x-ray absorptiometry was performed of the lumbar spine and left hip. The images are of good technical quality. Summary results are attached. FINDINGS: LEFT FEMUR, NECK: BMD 0.843 g/cm2, Z-score -0.2, T-score -1.4, osteopenia. LEFT FEMUR, TOTAL: BMD 0.911 g/cm2, Z-score 0.1, T-score -0.8, normal. AP SPINE L1-L4: BMD 1.053 g/cm2, Z-score 0.0, T-score -1.1, osteopenia. IDENTIFIED RISK FACTORS: Early menopause, hysterectomy, secondary osteoporosis. HISTORY OF FRACTURE: None listed. MEDICATIONS: Calcium, vitamin D. MM/XR DEXA axial skeleton IMPRESSION: 1. DIAGNOSIS: Osteopenia based on the lowest T-score value of -1.4 in the femoral neck applying World Health Organization criteria. 2. 10-YEAR FRACTURE RISK PREDICTION, FRAX: Major osteoporotic fracture (clinical spine, forearm, hip or shoulder) 6.9%. Hip fracture 0.5%. FOR[facility]LY [facility] Medical History (Updated 02/26/24 @ 16:00 by Sarah Lugo [facility]) History of cystocele Hypothyroid Hypercholesterolemia Constipation by delayed colonic transit Celiac disease PTSD (post-traumatic stress disorder) ADHD Bipolar 1 disorder Surgical History Hx of colonoscopy Hx of esophagogastroduodenoscopy History of breast augmentation History of appendectomy History of tonsillectomy H/O breast augmentation H/O: hysterectomy Social History Household Members: None Both parents involved: No Caregiver staying overnight: No Housing: Condominium Are you a primary hospice spiritual care coordinator to a significant other at home: No Do you presently have visiting nurse or other home services: No 75 years or older and lives alone: No Alcohol intake: never Patient Tobacco Use Status: Never used Tobacco e-Cigarette/Vaping Use: Never Used service: No 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 Labs from 01/17/2024 showed elevated calcium level of 11 with a albumin level of 4.5, corrected calcium would be 10.5, phosphorus normal at 3.4, magnesium normal at 2.3. Normal TSH of 0.97. Patient is on levothyroxine for hypothyroidism. Repeat labs 01/24/2024 showed high ionized calcium of 5.9, vitamin-D level of 60.7, PTH level inappropriately normal at 68.4. Repeat labs 02/26/2024 showed normal kidney function with a EGFR greater than 60, calcium of 9.1, ionized calcium 5.5, albumin of 4.3, vitamin-D level of 53.2, PTH of 100.7. She used to be on lithium for years which was stopped sometime in fall 2023, lithium can also result in high parathyroid hyperplasia. We agree with staying off lithium. She was also taking a lot of calcium through her diet plus supplements which could have worsened an underlying primary hyperparathyroidism possibly. She came off the supplements in the summer 2023, however was also told to do a low calcium diet. I have asked her to maintain normal amounts of calcium in her diet 2-3 servings daily calcium rich foods were good bone health but to stop taking any calcium supplements. Given her vitamin-D level was in the higher end of normal, I agree with staying off the vitamin-D for now, we will plan to recheck her vitamin-D levels in 3 months sometime around April or May 2024 and restart the vitamin-D at that time. Her bone density in May 2023 showed osteopenia, no osteoporosis, she is greater than age 50, we normal kidney function, no history of kidney stones, we will get a 24 hour urine calcium level but for now she is not meeting any surgical criteria if this is indeed primary hyperparathyroidism which is the most likely differential. Other possible differential could be FH FH, however unlikely given that she has always had normal calcium levels in the past. However she does have history of kidney stones in family. We are doing a 24 hour urine calcium and we will evaluate with a fractional excretion of calcium. This is not secondary hyperparathyroidism given normal kidney function, vitamin-D levels are within reasonable range. Patient was very anxious about possible malignancy being a differential, however high reassured her that hypercalcemia due to malignancy is much higher usually greater than 13 mg/dL plus her calcium levels recently normalized which is not seen in metastatic cancer causing hypercalcemia. Also usually PTH levels are lower in these patients.. Plan: -ordered 24 hour urine calcium and creatinine levels along with repeat serum c alcium, creatinine, PTH, ionized calcium and albumin -continue to stay off vitamin-D for now -no lithium therapy -take 2-3 servings of calcium rich foods daily -follow up in 5 weeks to discuss results Plan I spent 45 minutes in reviewing the record, seeing the patient and documenting in the medical record. Orders: Orders Calcium Today E21.0 - Primary hyperparathyroidism Phosphorus Today E21.0 - Primary hyperparathyroidism Parathyroid Hormone Intact Today E21.0 - Primary hyperparathyroidism Calcium, 24 Hr Ur Today E21.0 - Primary hyperparathyroidism Creatinine, 24 Hr Group Today E21.0 - Primary hyperparathyroidism Albumin Level Today E21.0 - Primary hyperparathyroidism Calcium, Ionized Today E21.0 - Primary hyperparathyroidism Basic Metabolic Panel Today E21.0 - Primary hyperparathyroidism Patient Instructions: Do blood work the same morning you hand in the 24 hr urine collection in 3 weeks 24 hr urine collection instructions You have been asked to collect your urine for 24 hours to assess for calcium excretion. You must choose a 24 hour period of time when you will be home. The morning of the first day, DISCARD the FIRST morning void and then note the time. You will collect every single void from then on for 24 hours. For example, if you wake up at 6am and urinate, flush down that void. You will then collect every drop of urine all day and all night through 6am the following day. You will urinate one last time at 6am for the collection. The jug of urine must be kept in the refrigerator until you bring it to the lab. Agree with staying off lithium and vitamin D for now Continue taking 3 servings of calcium rich foods daily Dont take any calcium supplements Weight bearing exercise like weights and walking are good for bones Maintain good hydration Coding Level of Care Code New Pt Level 4 (90202) Diagnoses Primary hyperparathyroidism E21.0 Time Spent (min) 45
[2024-02-28 14:26] VITALS: BP 130/80; PULSE 62; BMI 24.9
--- OUTSIDE RECORDS SUMMARY | 2024-02-28 16:45 | XMS_ITS ---
Author Organization [facility] Address [address] [place] [address] Care Team Providers Care Hack Saw Operator Name Role Phone Chema Payne Primary Care Provider Unavailab Meng Ugalde Unavailable [phone] REASON FOR VISIT Pt no show Encounters Encounter Location Date Provider Diagnosis [facility] [address] [place] [address] 10/19/2022 Meng [place] PLAN OF TREATMENT No Information
--- OUTSIDE RECORDS SUMMARY | 2024-02-28 16:45 | XMS_ITS | Patient Health Record ---
Author Organization [facility] Address [address] [place] [address] Care Team Providers Care Mattress Specialist Name Role Phone Chema Payne Primary Care Provider UnavailMeng Rutherford Unavailable [phone] ALLERGIES Allergen (clinical drug ingredient) Drug/Non Drug [...] bedt kaylene Orally Once a day Active [place] Carbonate ER 450 MG 2 tablet at [...] Constipation, unspecified constipation type (K59.00) Active confirmed 80988365 Problem Celiac disease (K90.0) Active confirmed 025240740 Problem Encounter for screening for malignant neoplasm of colon (Z12.11) Active confirmed 321041112 Problem Pharyngoesophageal dysphagia (R13.14) Active confirmed 11689175 Problem Slow transit constipation (K59.01) Active confirmed 80967545 Problem Constipation (K59.00) Active confirmed Constipation (13635197) Problem Abdominal distension (R14.0) Active confirmed Flatulence, eructation and gas pain (126437983) Problem Abnormal findings on diagnostic imaging of other abdominal regions, including retroperitoneum (R93.5) Active confirmed Imaging of abdomen abnormal (210137690) Problem Pelvic floor dysfunction in female (M62.89) Active confirmed [id number] Encounters Encounter Location Date Provider Diagnosis [facility] [address] [place] [address] 02/04/2024 Meng Wakefield PLAN OF TREATMENT Pending [...] [employer] [address] [address] [place] [address] [id number] HELADIO SHIRA Self - patient is the insured MEDICAL (GENERAL) HISTORY Medical History History ICD Code Bipolar ADHD PTSD She stays on a gluten-free d iet-has had a positive [employer] Ceilac Disease Genetic Profile, although her duodenal [...] colon. Fecal defecography study in 09/2021 at [facility] revealed no significant change in the [...] relatively atonic and insensate rectum. A Denies NM,DM,CVA,Lung disease,renal dise ase Cystocele--surgery as below Hypothyroidism [...]
--- OUTSIDE RECORDS SUMMARY | 2024-02-28 16:45 | XMS_ITS ---
Author Organization [facility] Address [address] [place] [address] Care Team Providers Care Cloth Bleaching Range Operator Chief Name Role Phone Chema Payne Primary Care Provider Unavailab Meng Ugalde Unavailable [phone] REASON FOR VISIT Rosa needs these disability forms JP Encounters Encounter Location Date Provider Diagnosis [facility] [address] [place] [address] 02/04/2024 Meng Wakefield PLAN OF TREATMENT No Information
--- OUTSIDE RECORDS SUMMARY | 2024-02-28 16:45 | XMS_ITS ---
Author Organization [facility] Address [address] [place] [address] Care Team Providers Care Director Behavioral Health Name Role Phone Chema Payne Primary Care Provider Unavailab Meng Ugalde Unavailable [phone] REASON FOR VISIT Patient presents today for celiac disease Encounters Encounter Location Date Provider Diagnosis [facility] [address] [place] [address] 10/19/2022 Meng Wakefield PLAN OF TREATMENT No Information
--- OUTSIDE RECORDS SUMMARY | 2024-02-28 16:45 | XMS_ITS | Clinical Summary ---
Author Organization [facility] Address [address] [place] [address] Care Team Providers Care Slab Depiler Operator Name Role Phone Ariadna Cervantes DO Primary Care Provider [phone] Allergies Active Allergy Reactions Criticality Noted Date Comments Hydromorphone Hives,Other (See Comments) Medium 2016 Midazolam Other (See Comments) Medium 06/20/2016 Restlessness Medications Medication Sig Dispensed Refills Start Date End Date Status amphetamine-dextroamp hetamine (ADDERALL XR) 30 MG 24 hr capsule take 1 capsule by mouth once daily 0 05/11/2017 Active atomoxetine (STRATTERA) 60 MG capsule take 1 capsule by mouth once daily 0 05/11/2017 Active cholecalciferol (VITAMIN D3) 1000 units tablet Take 1,000 Units by mouth daily. 0 Active QUEtiapine (SEROQUEL) 400 MG tablet Take 400 mg by mouth every night at bedtime. Patient takes 400 mg and 100 mg daily 0 Active lithium (ESKALITH) 450 MG CR tablet Take 450 mg by mouth 2 (two) times a day. 0 Active bisacodyl (DULCOLAX) [address] 10 mg rectally daily. Takes 4-5 daily 0 Active simvastatin (ZOCOR) tablet 20 mg Take 1 tablet (20 mg total) by mouth every night at bedtime. 90 tablet 3 07/25/2017 Active Probiotic Product (PROBIOTIC PO) Take by mouth. 0 Active QUEtiapine (SEROquel) 100 MG tablet Take 100 mg by mouth every night at bedtime. 0 Active cloNIDine (CATAPRES) tablet 0.1 mg Take 0.1 mg by mouth 2 (two) times a day. 0 Active Active Problems Problem Noted Date Diagnosed Date Acquired hypothyroidism 05/14/2018 BMI 25.0-25.9,adult 11/14/2017 Anxiety Depression Bipolar 1 disorder Celiac disease Overview: Dr Harrington Hyperlipidemia ADHD (attention deficit hyperactivity disorder) Overview: Seen at [facility] Immunizations Name Administration Dates Next Due Influenza Trivalent (Fluzone /Afluria) 5.0mL Multi-dose Vial 11/13/2017 Family History Medical History Relation Name Comments Bipolar disorder Brother Heart disease Father age 60 Cerebral aneurysm Maternal Grandfather Dementia Maternal Grandmother Stroke Maternal Grandmother Other Mother TIA age 58 Heart disease Paternal Grandfather Heart disease Paternal Grandmother Relation Name Status Comments Brother Alive Father Alive Maternal Grandfather Maternal Grandmother Mother Alive Paternal Grandfather Paternal Grandmother Social History Tobacco Use Types Packs/Day Years Used Date Smoking Tobacco: Never Smokeless Tobacco: Never Alcohol Use Standard Drinks/Week Comments Yes 0 (1 standard drink = 0.6 oz pur e alcohol) 1x/year Sex and Gender Information Value Date Recorded Sex Assigned at Female 05/14/2018 4:13 PM EDT Gender Identity Female 05/14/2018 4:13 PM EDT Sexual Orientation Straight 05/14/2018 4: 13 PM EDT Last Filed Vital Signs Vital Sign Reading Time Taken Comments Blood Pressure 120/78 05/14/2018 4:03 PM EDT Pulse 78 05/14/2018 4:03 PM EDT Temperature 36.9 ??C (98.4 ??F) 05/14/2018 4:03 PM ED T Respiratory Rate 16 05/14/2018 4:03 PM EDT Oxygen Saturation 98% 05/14/2018 4:03 PM EDT Inhaled Oxygen Concentration - - Weight 67.1 kg (148 lb) 05/14/2018 4:03 PM EDT Height 159.4 cm (5' 2.75 ) 05/14/2018 4:03 PM ED T Body Mass Index 26.43 05/14/2018 4:03 PM EDT Plan of Treatment Health Maintenance Due Date Last Done Comments Hepatitis B Vaccines (1 of 3 - 3-dose series) 1966 Hepatitis C Screening 1966 COVID-19 Vaccine (#1) 04/28/1967 DTap / Tdap / Td (1 - Tdap) 1985 Shingrix-Zoster Vaccine (1 o f 2) 2016 Preventative Health Evaluation 11/14/2018 11/14/2017 Depression Screening 05/15/2019 05/14/2018 Breast Cancer Screening (Mammogram) 08/22/2020 08/22/2018, 08/21/2017, 06/06/2016 Influenza Vaccine (#1) 2023 11/13/2017 Colon Cancer Screening (Colonoscopy) 01/19/2025 01/19/2015 Pneumococcal Vaccine Aged Out No long er eligible based on patient's age to complete this topic RSV Ped < 20 months Aged Out No longe r eligible based on patient's age to complete this topic Care Teams Slab Depiler Operator Relationship Specialty Start Date End Date Ariadna Cervantes DO PCP - General Family Medicine 05/09/17
== END 2024-02-28 15:12 | disposition home or self-care (01) ==
PROVIDERS: PCP Family Medicine; Visit Provider Student in an Organized Health Care Education/Training Program
DX: E21.0 Primary hyperparathyroidism (principal)
CPT/HCPCS: 99204

== ENCOUNTER → 2024-02-28 14:23 | Outpatient (BNVA) | payer OTHER, SELFPAY | PROVIDERS: PCP Family Medicine; Visit Provider Student in an Organized Health Care Education/Training Program ==

== ENCOUNTER 2024-03-26 15:34 | Outpatient (REF) | payer OTHER, SELFPAY ==
--- OUTSIDE RECORDS SUMMARY | 2024-03-26 16:26 | XMS_ITS ---
Author Organization [facility] Address [address] [place] [address] Care Team Providers Care Die Forger Name Role Phone Chema Payne Primary Care Provider Unavailab Meng Ugalde Unavailable [phone] REASON FOR VISIT Patient presents today for celiac disease Encounters Encounter Location Date Provider Diagnosis [facility] [address] [place] [address] 10/19/2022 Meng Wakefield PLAN OF TREATMENT Next Appt Details Provider Name:Meng Wakefield , 04/09/2024 09:10:00 AM, [address], [address], [place], [address],
--- OUTSIDE RECORDS SUMMARY | 2024-03-26 16:26 | XMS_ITS | Clinical Summary ---
Author Organization [facility] Address [address] [place] [address] Care Team Providers Care Biometrics Technician Name Role Phone Ariadna Cervantes DO Primary Care Provider [phone] Allergies Active Allergy Reactions Criticality Noted Date [...] (attention deficit hyperactivity disorder) Overview: Seen at [facility] Immunizations Name Administration Dates Next Due [...] age to complete this topic Care Teams Biometrics Technician Relationship Specialty Start Date End Date Ariadna Cervantes DO PCP - General Family Medicine 05/09/17
--- OUTSIDE RECORDS SUMMARY | 2024-03-26 16:26 | XMS_ITS ---
Author Organization [facility] Address [address] [place] [address] Care Team Providers Care Profile Stitching Machine Operator Name Role Phone Chema Payne Primary Care Provider Unavailab Meng Ugalde Unavailable [phone] REASON FOR VISIT Pt no show Encounters Encounter Location Date Provider Diagnosis [facility] [address] [place] [address] 10/19/2022 Meng Wakefield PLAN OF TREATMENT Next Appt Details Provider Name:Meng Wakefield , 04/09/2024 09:10:00 AM, [address], [address], [place], [address],
--- OUTSIDE RECORDS SUMMARY | 2024-03-26 16:26 | XMS_ITS ---
Author Organization [facility] Address [address] [place] [address] Care Team Providers Care Bank Teller Machine Mechanic Name Role Phone Chema Payne Primary Care Provider Unavailab Meng Ugalde Unavailable [phone] REASON FOR VISIT Rosa needs these disability forms JP Encounters Encounter Location Date Provider Diagnosis [facility] [address] [place] [address] 02/04/2024 Meng Wakefield PLAN OF TREATMENT Next Appt Details Provider Name:Meng Wakefield , 04/09/2024 09:10:00 AM, [address], [address], [place], [address],
--- OUTSIDE RECORDS SUMMARY | 2024-03-26 16:27 | XMS_ITS | Patient Health Record ---
Author Organization [facility] Address [address] [place] [address] Care Team Providers Care Art Editor Name Role Phone Chema Payne Primary Care Provider UnavailMeng Rutherford Unavailable [phone] ALLERGIES Allergen (clinical drug ingredient) Drug/Non Drug [...] bedt kaylene Orally Once a day Active [place] Carbonate ER 450 MG 2 tablet at [...] Constipation, unspecified constipation type (K59.00) Active confirmed 36375246 Problem Celiac disease (K90.0) Active confirmed 503175712 Problem Encounter for screening for malignant neoplasm of colon (Z12.11) Active confirmed 871790225 Problem Pharyngoesophageal dysphagia (R13.14) Active confirmed 22603392 Problem Slow transit constipation (K59.01) Active confirmed 19993071 Problem Constipation (K59.00) Active confirmed Constipation (06330063) Problem Abdominal distension (R14.0) Active confirmed Flatulence, eructation and gas pain (997626556) Problem Abnormal findings on diagnostic imaging of other abdominal regions, including retroperitoneum (R93.5) Active confirmed Imaging of abdomen abnormal (448167424) Problem Pelvic floor dysfunction in female (M62.89) Active confirmed 923533244 Encounters Encounter Location Date Provider Diagnosis [facility] [address] [place] [address] 02/04/2024 Meng Wakefield PLAN OF TREATMENT Pending [...] BALLOOON DILATION OF ESOPH 05/18/2021 COLONOSCOPY 05/18/2021 Next Appt Details Provider Name:Meng Wakefield , 04/09/2024 09:10:00 AM, [address], [address], [place], [address], Insurance Providers Payer Name Payer Address Payer Phone Subscriber Number Group Number Insured Name Patient Relationship to Insured Coverage Start Date Coverage End Date [employer] [address] [address] [place], [place] [id number] SHIRA LEIJA Self - patient is the insured MEDICAL (GENERAL) HISTORY Medical History History ICD Code Bipolar ADHD PTSD She stays on a gluten-free d iet-has had a [facility] Disease Genetic Profile, although her duodenal biopsies were nomal in 2014 and celiac disease serology labs were negative as well....although she was on a gluten-free diet at the time of those studies. Duodenal biopsies were normal and celiac disease laboratories were negative in May of 2021 High Cholesterol Chronic constipation-Sitz ar rker study revealed accumulation of the great majority of the markers in the area of the sigmoid colon. Fecal defecography study in 09/2021 at [facility] revealed no significant change in the [...] relatively atonic and insensate rectum. A Denies [place],DM,CVA,Lung disease,renal dise ase Cystocele--surgery as below Hypothyroidism [...]
== END 2024-03-26 15:35 | disposition home or self-care (01) ==
LOC: HO.MAMMO 15:34
PROVIDERS: PCP Nurse Practitioner Family; Visit Provider Family Medicine
DX: Z12.31 Encounter for screening mammogram for malignant neoplasm of breast (principal)
CPT/HCPCS: 77063; 77067

== ENCOUNTER → 2024-03-26 16:00 | Outpatient (BNV) | payer OTHER, SELFPAY | PROVIDERS: PCP Nurse Practitioner Family; Visit Provider Internal Medicine | DX: Z12.31 Encounter for screening mammogram for malignant neoplasm of breast (principal) | CPT/HCPCS: 77063; 77067 ==

== ENCOUNTER 2024-04-24 14:39 | Outpatient (AMB) | payer BC, SELFPAY ==
--- NOTE | 2024-04-24 16:29 | MHC.PC.OV ---
Intake Visit Reasons: referral request Allergies midazolam [From VERSED] Allergy (Intermediate, Verified 04/24/24 16:30) HYPERACTIVITY, increased hyperactivity hydromorphone [From Dilaudid] Allergy (Unknown, Verified 04/24/24 16:30) ITCHING Medication List - Last Reconciled 04/24/24 by Sarah Lugo, [facility]- bisacodyl 5 mg PO BEDTIME carbamazepine ER (Tegretol XR) 100 mg PO DAILY lactobacillus combination no.4 (Probiotic) 3,000 mmu cells PO DAILY lamotrigine (Lamictal) 200 mg PO DAILY levothyroxine 75 mcg (1.5 x 50 mcg) PO DAILY 90 days lorazepam 1 mg PO TID methylphenidate HCl (Ritalin) 20 mg PO BID mirtazapine (Remeron) 15 mg PO BEDTIME simvastatin 40 mg PO BEDTIME valacyclovir (Valtrex) 500 mg PO BID 10 days Tobacco use date assessed: 04/24/24 Dental Screening Dental Screen Date: 04/24/24 Did you have a dental visit in the last 12 months?: Yes Did you have a dental problem in the last 6 months where you did not have access to dental care?: No Was dental information given to patient?: Patient has dentist HPI HPI Comments History of Present Illness Details History of Present Illness - The patient is a 58-year-old female with pelvic floor dysfunction. - She reports longstanding issues with fecal incontinence secondary to diagnoses of slow transit colon, cathartic colon, and pelvic floor laxity as confirmed by various diagnostic tests. - Condition severity has reached a level requiring long-term disability, with potentially up to seven incontinence episodes daily, underscoring the extensive impact on quality of life. - Previous testing over recent years provided insight into bowel motility issues; however, surgical intervention with a total colectomy was declined by the patient. - She is presently focused on the possibility of pelvic floor rehabilitation treatment at [facility] - Active with GI Dr Wakefield Results - Labs/Tests: Sitz marker test (06/09/21), barium enema with gastrographin (10/21/21), colonoscopy (05/29/21), abdominal CAT scan and X-rays of abdomen and pelvis (10/21/21), [facility] (at [facility] (09/16/21). Discussion Notes I discussed the need for a referral to a pelvic slot machine floor person at [facility] to evaluate the presence of fecal incontinence and pelvic floor dysfunction. We reviewed the necessity of prior authorization to ensure insurance coverage before proceeding with scheduling any specialist consultations, due to financial considerations expressed by the patient. The patient shared history of extensive prior diagnostic evaluations, confirming severe bowel motility disorder, and we acknowledged the complexity of her condition along with her reluctance to undergo a colectomy. Assessment and Plan 1. Pelvic floor dysfunction: A referral to the pelvic slot machine floor person at [facility] is recommended, with prior authorization required from the patient?s insurance. This consultation will assess the viability of pelvic floor rehabilitation as a treatment to reduce fecal incontinence episodes. Patient Instructions - Await confirmation call when prior authorization for specialization consultation is complete before scheduling the appointment. - Maintain current management routine and avoid initiating any new medication without prior consultation. - Remain observant for any changes in health status or fecal incontinence patterns, and report significant variations in symptoms. Consent The patient consented to the referral to a pelvic slot machine floor person at [facility] after reviewing the necessity of prior authorization for insurance coverage. The potential benefits of pelvic floor rehabilitation in addressing fecal incontinence were discussed, recognizing the current extensive severity and impact on daily living. Detailed risk assessment discussion and alternative treatment options (including surgical interventions previously declined by the patient) were noted for comprehensive shared decision-making. The patient was informed of the processes, procedures, and length of the approval, in addition to post-therapeutic follow-up and reassessment. Patient was informed and verbally consented to the use of an ambient scribe for clinic note documentation during this visit. Total time spent caring for the patient today was 25 minutes. This includes time spent before the visit reviewing the chart, time spent during the visit, and time spent after the visit on documentation, reviewing laboratory results, diagnostic imaging, medications, performing a medically necessary evaluation, counseling on diagnoses, care coordination, ordering appropriate tests, ordering appropriate medications, review of tests performed by other providers, reporting test results with the patient, communication with other healthcare providers. [facility] Medical History (Updated 04/24/24 @ 16:37 by BELTRAN Presley-DARSHAN) ADHD Bipolar 1 disorder Celiac disease Constipation by delayed colonic transit History of cystocele Hypercholesterolemia Hypothyroid PTSD (post-traumatic stress disorder) Surgical History (Updated 04/24/24 @ 16:42 by ANISHA Presley) H/O breast augmentation H/O: hysterectomy History of appendectomy History of breast augmentation History of tonsillectomy Hx of colonoscopy (~2021) Hx of esophagogastroduodenoscopy Social History Household Members: None Both parents involved: No Caregiver staying overnight: No Housing: Condominium Are you a primary palliative care specialist to a significant other at home: No Do you presently have visiting nurse or other home services: No 75 years or older and lives alone: No Alcohol intake: never Patient Tobacco Use Status: Never used Tobacco e-Cigarette/Vaping Use: Never Used service: No 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 Meng Sosa, Elen Guzman, Tamir Mendes and colleagues, with an educational dorota from [employer]. Physical exam (Primary Care) Tobacco/Smoking Status: Tobacco use Status Tobacco use date assessed 04/24/24 04/24/24 16:42 Patient Tobacco Use Status Never used Tobacco 04/24/24 16:30 e-Cigarette/Vaping Use Never Used 04/24/24 16:30 Thrive Assessment: Date of Thrive Assessment Date Thrive assessed 01/17/24 04/24/24 16:30 Telehealth Telehealth Telehealth Platform: [facility] Location of provider rendering services: practice address Location of patient: address on file Patient Identification confirmed using: Name, : Yes Telehealth method: voice only Patient verbally consented to treatment: Yes Patient verbally consented to billing insurance company: Yes Patient informed of any privacy concerns related to visit: Yes Minutes spent on Phone/Video with Pt.: 21 Coding Level of Care Code Tele Est Pt Level 4 (62192) Complex EM visit Add On G2211 Diagnoses Full incontinence of feces R15.9 Fecal incontinence type: full incontinence of feces Constipation by delayed colonic transit K59.01 Colonic inertia K59.9 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 Orders: Referrals Pelvic Electronic Test Technician Referral K59.01 - Slow transit constipation, K59.89 - Other specified functional intestinal disorders, K59.9 - Functional intestinal disorder, unspecified, R15.9 - Full incontinence of feces
== END 2024-04-24 17:05 | disposition home or self-care (01) ==
LOC: HO.HMCFM 14:39
PROVIDERS: PCP Nurse Practitioner Family; Visit Provider Nurse Practitioner Family
DX: R15.9 Full incontinence of feces (principal); K59.01 Slow transit constipation; K59.9 Functional intestinal disorder, unspecified; K59.89 Other specified functional intestinal disorders

== ENCOUNTER → 2024-04-24 14:39 | Outpatient (BNVA) | payer BC, SELFPAY | PROVIDERS: PCP Nurse Practitioner Family; Visit Provider Nurse Practitioner Family ==

== ENCOUNTER 2024-04-25 10:41 | Outpatient (REF) | payer BC, SELFPAY ==
[2024-04-25 11:59] LABS: Parathyroid Hormone Intact 105.8 pg/mL (8.7-77.1)
[2024-04-25 12:11] LABS: Anion Gap 11 (12-20); Blood Urea Nitrogen 15 mg/dL (9-16); Carbon Dioxide 26 mmol/L (22-29); Chloride 110 mmol/L (96-108); Estimated Glomerular Filt Rate > 60; Glucose Random 100 mg/dL (60-115); Phosphorus 3.3 mg/dL (2.7-4.5); Sodium 143 mmol/L (135-145)
[2024-04-25 12:19] LABS: Albumin Level 4.4 g/dL (3.5-5.0)
[2024-04-25 12:53] LABS: Creatinine, 24Hr Urine 1.1 G/Day (1.0-2.0); Total Volume 24 Hour Urine 2700 mL
[2024-04-26 15:58] LABS: Calcium, Ionized 5.4 mg/dL (4.7-5.5)
[2024-04-27 17:03] LABS: Calcium, 24 Hr Urine 154 mg/24 h; Calcium/Creatinine Ratio 139 mg/g creat (30-275); Creatinine 24Hr Urine 1.11 g/24 h (0.50-2.15)
== END 2024-04-25 10:42 | disposition home or self-care (01) ==
LOC: HO.LAB 10:41
PROVIDERS: PCP Family Medicine; Visit Provider Student in an Organized Health Care Education/Training Program
DX: E21.0 Primary hyperparathyroidism (principal)
CPT/HCPCS: 36415; 80048; 82040; 82330; 82340; 82570; 83970; 84100

== ENCOUNTER 2024-05-03 08:55 | Outpatient (AMB) | payer BC, SELFPAY ==
--- NOTE | 2024-05-03 08:57 | A.OFFVIS_ITS ---
Vital Signs 05/03/24 08:59 Height 5 ft 3 in Weight 136 lb 7.458 oz BMI 24.2 BP 118/82 Blood Pressure Location Lt brachial Position Sitting Pulse 61 Pulse Source Palpation Pulse Oximetry (%) 99 Oxygen Delivery Method Room Air Intake Visit Reasons: Primary hyperparathyroidism Intake Note: Patient present today for Primary hyperparathyroidism office visit. Allergies midazolam [From VERSED] Allergy (Intermediate, Verified 05/03/24 09:00) HYPERACTIVITY, increased hyperactivity hydromorphone [From Dilaudid] Allergy (Unknown, Verified 05/03/24 09:00) ITCHING Medication List - Last Reconciled 05/03/24 by Belkis Sarmiento MD bisacodyl 5 mg PO BEDTIME carbamazepine ER (Tegretol XR) 100 mg PO DAILY dextroamphetamine-amphetamine 30 mg ER (Adderall XR) 30 mg PO DAILY lactobacillus combination no.4 (Probiotic) 3,000 mmu cells PO DAILY lamotrigine (Lamictal) 200 mg PO DAILY levothyroxine 75 mcg (1.5 x 50 mcg) PO DAILY 90 days lorazepam 1 mg PO TID mirtazapine (Remeron) 15 mg PO BEDTIME simvastatin 40 mg PO BEDTIME 90 days valacyclovir (Valtrex) 500 mg PO BID 10 days HPI Comments Details: 58-year-old female coming in today for follow up of PTH mediated hypercalcemia. Here today with Dario . HPI from initial visit Labs from 01/17/2024 showed elevated calcium level of 11 with a albumin level of 4.5, corrected calcium would be 10.5, phosphorus normal at 3.4, magnesium normal at 2.3. Normal TSH of 0.97. Patient is on levothyroxine for hypothyroidism. Normal calcium levels back in 2019. Repeat labs 01/24/2024 showed high ionized calcium of 5.9, vitamin-D level of 60.7, PTH level inappropriately normal at 68.4. Repeat labs 02/26/2024 showed normal kidney function with a EGFR greater than 60, calcium of 9.1, ionized calcium 5.5, albumin of 4.3, vitamin-D level of 53.2, PTH of 100.7. No kidney stones No fractures No abd pain , has chronic constipation and then sometimes diarrhea, sees gasteroenterology, no mental status changes Denies increased urination thnks lost 10 lbs due to losing muscle due to decreased activity, now gaining it back due to increased activity Brother has recurrent kidney stones Was on lithium for years for bipolar disorder , psychiatrist Dr. Pedraza stopped it SeptemberOctober 2023 No history of HTN, not on HCTZ Was taking vitamin D 2000 units daily for years , stopped January 2024 Started calcium supplements 500 mg sinceApr2023 plus multivitamin which usually has about 200 mg of calcium , plus increased calcium in her diet, supplements stopped January 2024 Up until January 2024 before labs showed elevated calcium was taking 8 oz glass of milk in a day, 2 servings of yogurt daily, lots of cheese. Cut back now. DEXA scan 05/23/2023 showed osteopenia of the left femoral neck with T-score of- 1.4, normal bone density of the left femur total with T-score of-0.8, osteopenia of the lumbar spine with T-score of -1.1, FRAX not meeting treatment indication. CT chest abdomen pelvis done 02/19/2024 did not identify any concern for metastatic lesion. This was done by PCP while evaluating hypercalcemia. Interval history Labs 02/26/2024: Calcium of 9.1, albumin of 4.3, corrected calcium would be 8.8, ionized calcium 5.5, vitamin-D of 53.2, normal kidney function, PTH elevated at 100.7, PTH RP 13. Labs 04/25/2024 showed calcium of 10, with albumin of 4.4, corrected calcium would be 9.6, ionized calcium normal at 5.4, phosphorus normal at 3.3, PTH elevated at 105.8, 24 hour urine calcium level not elevated at 154, calcium creatinine ratio of 139. Fractional excretion of calcium is 0.009. Calcium:stopped calcium rich foods 2 weeks ago because of fear of hypercalcemia . 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6 2.5 Albumin 25-OH Vitamin D Total TSH PTH Intact 05/02/19 05/17/19 08/05/19 05:59 16:47 12:24 Hgb Hct Creatinine Estimated GFR Calcium Phosphorus 3.5 Ionized Calcium Magnesium 2.5 2.6 Albumin 4.4 D 4.2 25-OH Vitamin D Total TSH PTH Intact 08/26/19 08/31/20 06/03/21 13:55 06:45 10:17 Hgb Hct Creatinine Estimated GFR Calcium 9.7 Phosphorus Ionized Calcium Magnesium Albumin 4.3 4.4 25-OH Vitamin D Total TSH PTH Intact 01/17/22 07/29/22 04/25/23 07:23 06:54 07:07 Hgb Hct Creatinine Estimated GFR Calcium 9.9 10.0 9.4 Phosphorus Ionized Calcium Magnesium Albumin 4.4 4.3 4.2 25-OH Vitamin D Total TSH PTH Intact 04/25/23 09/27/23 10/25/23 07:07 15:16 14:40 Hgb Hct Creatinine Estimated GFR Calcium 9.7 10.1 9.8 Phosphorus Ionized Calcium Magnesium Albumin 4.4 25-OH Vitamin D Total TSH PTH Intact 01/17/24 01/24/24 02/26/24 13:50 14:45 13:37 Hgb 12.9 Hct 37.8 Creatinine 0.71 Estimated GFR > 60 Calcium 11.0 H D 9.1 D Phosphorus 3.4 Ionized Calcium 5.9 H 5.5 Magnesium 2.3 Albumin 4.5 4.3 25-OH Vitamin D Total 60.7 53.2 TSH 0.97 1.58 PTH Intact 68.4 100.7 H Laboratory Tests 02/26/24 04/25/24 04/25/24 13:37 06:30 10:56 Sodium 143 Potassium 4.0 BUN 15 Creatinine 0.69 Estimated GFR > 60 > 60 Random Glucose 86 100 Calcium 9.1 D 10.0 D Ionized Calcium 5.5 5.4 Phosphorus 3.3 Albumin 4.3 4.4 25-OH Vitamin D Total 53.2 1,25 Dihydroxy Vit D 32 TSH 1.58 PTH Intact 100.7 H 105.8 H PTH Related Protein 13 Ur 24 Hour Volume 2700 Ur Creatinine mg/dL 40.00 Ur Creatinine 24 Hour 1.1 Ur Calcium 24 Hr 154 Calcium/Creat 24 Hr 139 04/25/2024: Fractional excretion of calcium is 0.009 Ct chest 02/19/24 CT CHEST WITH IV CONTRAST, CT ABDOMEN PELVIS WITH IV CONTRAST INDICATION: E83.52 - Hypercalcemia COMPARISON: Comparison is made with the prior chest CT dated 04/30/[address] of the abdomen and pelvis dated 10/21/2021.. TECHNIQUE: CT scan of the chest, abdomen and pelvis was performed following administration of 85 mL Omnipaque 350 using standard departmental protocol. Coronal and sagittal reformatted images were generated and reviewed. Oral contrast material was not administered at the request of the referring physician. This CT exam was performed with one or more of the following dose reduction techniques: automated exposure control, adjustment of the mA and/or kV according to patient size, use of iterative reconstruction technique. DLP: 345 mGy-cm CHEST: THYROID: The visualized portion of the thyroid is unremarkable. LUNGS: The lungs are clear. MEDIASTINUM: There is no mediastinal lymphadenopathy. LELAND: There is no hilar lymphadenopathy. CARDIOVASCULATURE: The heart is normal in size. There is no pericardial effusion. There is dilatation of the descending thoracic aorta measuring 3.7 cm in diameter. DEGREE OF CORONARY CALCIFICATION: none PLEURA: There is no pleural effusion. No pneumothorax. MAIN AIRWAYS: The mainstem bronchi and proximal branches are patent. AXILLA: There is no axillary lymphadenopathy. SOFT TISSUES: Bilateral breast implants are seen in place. BONES: The bones are intact. ABDOMEN: LIVER: The liver is normal in size and contour. Multiple cysts are again noted in the liver measuring up to 1.3 cm in size. The hepatic and portal veins are patent. GALLBLADDER / BILE DUCTS: The gallbladder is unremarkable. There is no intra or extrahepatic biliary ductal dilatation. SPLEEN: The spleen is normal in size. No focal splenic lesion is identified. PANCREAS: The pancreas is unremarkable in appearance. ADRENAL GLANDS: Within normal limits. KIDNEYS/RETROPERITONEUM: No renal calculi are identified. There is no hydronephrosis. No renal masses are identified. LYMPH NODES: No abdominal or pelvic lymphadenopathy. VASCULATURE: The abdominal aorta is normal in caliber. MESENTERY/PERITONEUM: No free fluid. No masses. There is no free intraperitoneal gas. STOMACH: The stomach is unremarkable. SMALL BOWEL: The small bowel is normal in caliber. COLON: There is a large amount of stool throughout the colon. APPENDIX: The appendix is surgically absent. URINARY BLADDER/PELVIC ORGANS: The urinary bladder is collapsed, limiting detailed evaluation. The patient is status post hysterectomy. BONES / SOFT TISSUES: No suspicious bony or soft tissue abnormalities. CT/CT chest w IV con IMPRESSION: 1. Dilatation of the ascending thoracic aorta measuring up to 3.7 cm in diameter. 2. Multiple hepatic cysts. Large amount of stool throughout the colon. 3. Otherwise unremarkable contrast-enhanced CT of the chest, abdomen, and pelvis. Please note that the shoulders are nearly completely excluded from the [id number]. If there is clinical concern for shoulder pathology, dedicated imaging of the shoulders is recommended. BONE DENSITOMETRY 05/23/23 CLINICAL INDICATION: Age-related osteoporosis without current pathological fracture. COMPARISON: This is the patient's baseline examination. TECHNIQUE: Using a [employer] DXA System (software version: 13.1) manufactured by [employer], dual-energy x-ray absorptiometry was performed of the lumbar spine and left hip. The images are of good technical quality. Summary results are attached. FINDINGS: LEFT FEMUR, NECK: BMD 0.843 g/cm2, Z-score -0.2, T-score -1.4, osteopenia. LEFT FEMUR, TOTAL: BMD 0.911 g/cm2, Z-score 0.1, T-score -0.8, normal. AP SPINE L1-L4: BMD 1.053 g/cm2, Z-score 0.0, T-score -1.1, osteopenia. IDENTIFIED RISK FACTORS: Early menopause, hysterectomy, secondary osteoporosis. HISTORY OF FRACTURE: None listed. MEDICATIONS: Calcium, vitamin D. MM/XR DEXA axial skeleton IMPRESSION: 1. DIAGNOSIS: Osteopenia based on the lowest T-score value of -1.4 in the femoral neck applying World Health Organization criteria. 2. 10-YEAR FRACTURE RISK PREDICTION, FRAX: Major osteoporotic fracture (clinical spine, forearm, hip or shoulder) 6.9%. Hip fracture 0.5%. [facility] Medical History History of cystocele Hypothyroid Hypercholesterolemia Constipation by delayed colonic transit Celiac disease PTSD (post-traumatic stress disorder) ADHD Bipolar 1 disorder Surgical History Hx of colonoscopy (~2021) Hx of esophagogastroduodenoscopy History of breast augmentation History of appendectomy History of tonsillectomy H/O breast augmentation H/O: hysterectomy Social History Household Members: None Both parents involved: No Caregiver staying overnight: No [facility] Are you a primary rn managed care to a significant other at home: No Do you presently have visiting nurse or other home services: No 75 years or older and lives alone: No Alcohol intake: never Patient Tobacco Use Status: Never used Tobacco e-Cigarette/Vaping Use: Never Used service: No 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 Labs from 01/17/2024 showed elevated calcium level of 11 with a albumin level of 4.5, corrected calcium would be 10.5, phosphorus normal at 3.4, magnesium normal at 2.3. Normal TSH of 0.97. Patient is on levothyroxine for hypothyroidism. Normal calcium levels back in 2019. Repeat labs 01/24/2024 showed high ionized calcium of 5.9, vitamin-D level of 60.7, PTH level inappropriately normal at 68.4. Repeat labs 02/26/2024 showed normal kidney function with a EGFR greater than 60, calcium of 9.1, ionized calcium 5.5, albumin of 4.3, vitamin-D level of 53.2, PTH of 100.7. She used to be on lithium for years which was stopped sometime in fall 2023, li thium can also result in high parathyroid hyperplasia. We agree with staying off lithium. She was also taking a lot of calcium through her diet plus supplements which could have worsened an underlying primary hyperparathyroidism possibly. She came off the supplements in the summer 2023, however was also told to do a low calcium diet. I have asked her to maintain normal amounts of calcium in her diet 2-3 servings daily calcium rich foods were good bone health but to stop taking any calcium supplements. Her bone density in May 2023 showed osteopenia, no osteoporosis, she is greater than age 51, normal kidney function, no history of kidney stones, no hypercalciuria on 24 hour urine evaluation from April 2024, for now she is not meeting any surgical criteria if this is indeed primary hyperparathyroidism which is the most likely differential. Other possible differential could be FHH, however unlikely given that she has always had normal calcium levels in the past. However she does have history of kidney stones in family. Plus twenty 4 hour urine evaluation done in April 2024 showed fractional excretion of calcium was 0.009. I believe this is likely on the lower side because she has stopped having any calcium intake 2 weeks ago due to fear of hypercalcemia. Regardless since she is not meeting surgical criteria, at this point we will just continue to monitor her labs and we will repeat labs in 6 months. This is not secondary hyperparathyroidism given normal kidney function, vitamin-D levels are within reasonable range. Patient was very anxious about possible malignancy being a differential, however high reassured her that hypercalcemia due to malignancy is much higher usually greater than 13 mg/dL plus her calcium levels recently normalized which is not seen in metastatic cancer causing hypercalcemia. Also PTH levels are lower in these patients.. Plan: -She should maintain normal amount of calcium in her diet for overall good bone health. This would be 2-3 servings of calcium rich foods daily. Her vitamin-D level most recently was also at 53, she can restart taking vitamin-D at 800 units daily. Advised to maintain good hydration. -repeat labs in 6 months prior to next visit -stay off lithium therapy -follow up in 6 months Plan I spent 30 minutes in reviewing the record, seeing the patient and documenting in the medical record. Orders: Orders Calcium, Ionized 6 Months E21.0 - Primary hyperparathyroidism Phosphorus 6 Months E21.0 - Primary hyperparathyroidism Parathyroid Hormone Intact 6 Months E21.0 - Primary hyperparathyroidism Vitamin D 25-OH Total 6 Months E21.0 - Primary hyperparathyroidism Basic Metabolic Panel 6 Months E21.0 - Primary hyperparathyroidism Calcium 6 Months E21.0 - Primary hyperparathyroidism Albumin Level 6 Months E21.0 - Primary hyperparathyroidism Patient Instructions: take 2-3 servings of calcium rich food daily start vitamin d 800 units daily Dont use lithium again Stay well hydrated If you ever get diagnosed with high BP, no hydrochlorothiazide for you Do blood work in 6 months prior to your next visit Coding Level of Care Code Est Pt Level 4 (20358) Diagnoses Primary hyperparathyroidism E21.0 Time Spent (min) 30
[2024-05-03 08:59] VITALS: BP 118/82; PULSE 61; O2SAT 99; BMI 24.2
== END 2024-05-03 09:25 | disposition home or self-care (01) ==
LOC: HO.ENCR 08:55
PROVIDERS: PCP Nurse Practitioner Family; Visit Provider Student in an Organized Health Care Education/Training Program
DX: E21.0 Primary hyperparathyroidism (principal)
CPT/HCPCS: 99214

== ENCOUNTER → 2024-05-03 08:55 | Outpatient (BNVA) | payer BC, SELFPAY | PROVIDERS: PCP Nurse Practitioner Family; Visit Provider Student in an Organized Health Care Education/Training Program ==

== ENCOUNTER 2024-05-07 09:06 | Outpatient (REF) | payer BC, SELFPAY ==
[2024-05-07 09:18] LABS: MANUAL DIFF FLAG NO
--- OUTSIDE RECORDS SUMMARY | 2024-05-07 10:02 | XMS_ITS ---
Author Organization [facility] Address [address] [place] [address] Care Team Providers Care Medical Insurance Coding Specialist Name Role Phone Chema Payne Primary Care Provider Unavailab Meng Ugalde Unavailable [phone] Allergies Allergen (clinical drug ingredient) Drug/Non Drug Allergy documented on EMR Reaction Allergy Type Onset Date Status Information temporarily unavailable Midazolam Unknown Drug Allergy Active Information temporarily unavailable Dilaudid Unknown Drug Allergy Active REASON FOR VISIT Patient presents today for celiac Medications Medication SIG (Take, Route, Fr equency, Duration) Notes Start Date End Date Status Probiotic - as directed Orally Active Synthroid 75 MCG 1 tablet in the morn ing on an empty stomach Orally Once a day for 30 days Active Simvastatin 40 MG 1 tablet in the even ing Orally Once a day for 30 days Ac tive Bisacodyl 5 MG 5 tablets Orally QHS prn Active Docusate Sodium 250 MG 2 capsule Orally QHS prn Active Senna 8.6 MG 2 capsules Orally 1- 2 prn constipation prn Active Remeron 30 MG 1 tablet at bedtime Orally Once a day hs Active Xyzal prn Active Valtrex 500 MG 1 tablet Orally Once a day prn Active carBAMazepine 200 MG 1 tablet Orally once a day/hs Active Ritalin 20 MG 1 tablet on an empty stomach Orally Twice a day Active LaMICtal 100 MG 1 tablet Orally Once a day Active Ativan 1 MG 1 tablet at bedtime as needed Orally Once a day Active Biotin 10 MG 1 tablet Orally Once a day Active Social History Tobacco Use: Social History Observation Description Date Details (start date - stop date) Never Smoker NA - NA Tobacco Use/Smoking Question Answer Notes Patient is a nonsmoker Alcohol Screen Question Answer Notes Did you have a drink containing alcohol in the p ast year? No Points 0 Interpretation Negative Section Notes: Nonsmoker; no sig alcohol Vital Signs Blood pressure systolic 111 mm Hg 04/10/19 25 Blood pressure diastolic 11 mm Hg 025 Height 63 in 04/09/2024 Weight 133 lbs 04/09/2024 BMI 23.56 kg/m2 04/09/2024 Encounters Encounter Location Date Provider Diagnosis [facility] [address] [place] [address] 04/09/2024 Meng Wakefield Constipation, unspecified constipation type K59.00 ; Pelvic floor dysfunction in female M62.89 and Celiac disease K90.0 Assessments Encounter Date Diagnosis (ICD Code) Assessment Notes Treatment Notes Treatment Clinical Notes Section Notes 04/09/2024 Constipation, unspecified constipation type (ICD-10 - K59.00) [place] [facility] [place].....let me know and I will send the records to [facility]. Overall, Rosa appears well from a clinical standpoint. While her bowel movements do remain problematic for her with ongoing significant constipation and requiring of significant amounts of medication, the current bowel regimen seems to at least be keeping things somewhat stable and improved compared to previously where she was going days at a time without a bowel movement and then having frequent awakenings at night with fecal incontinence. Her improved lifestyle with less stress at work and in general also seems to be helping her. While things do seem improved, I did encourage her to call the [facility] [place] for evaluation to see whether they think she would be a good candidate for any other type of treatment from a Medical or Surgical standpoint in regard to her significant bowel issues. While things do seem to be somewhat improved at the present time, I reviewed with her that I am concerned that as she gets older things can definitely potentially get worse. Therefore, I think now would be the best time for her to investigate other options that might be available. She will [place] the [facility] [place] see if her insurance will allow her to go there and will then advise me if I need to send records there before her visit. In regard to her swallowing issues and question of aspiration, I shall schedule her for a modified barium swallow study with the speech pathology department. She will check with radiology to see if she can have as minimal amount of barium as possible so as to avoid becoming constipated from that. I have given her an appointment to see me in the Fall but advised her to certainly keep me posted if she goes to [facility] or to call me if she has any problems or questions I can be of assistance with. Rosa was comfortable with this plan. Thank you again for allowing me to participate in Rosa's care. I shall continue to keep you advised of her progress. 04/09/2024 Pelvic floor dysfunction in female (ICD-10 - M62.89) Overall, Rosa appears well from a clinical standpoint. While her bowel movements do remain problematic for her with ongoing significant constipation and requiring of significant amounts of medication, the current bowel regimen seems to at least be keeping things somewhat stable and improved compared to previously where she was going days at a time without a bowel movement and then having frequent awakenings at night with fecal incontinence. Her improved lifestyle with less stress at work and in general also seems to be helping her. While things do seem improved, I did encourage her to call the [facility] [place] for evaluation to see whether they think she would be a good candidate for any other type of treatment from a Medical or Surgical standpoint in regard to her significant bowel issues. While things do seem to be somewhat improved at the present time, I reviewed with her that I am concerned that as she gets older things can definitely potentially get worse. Therefore, I think now would be the best time for her to investigate other options that might be available. She will call the [facility] [place] see if her insurance will allow her to go there and will then advise me if I need to send records there before her visit. In regard to her swallowing issues and question of aspiration, I shall schedule her for a modified barium swallow study with the speech pathology department. She will check with radiology to see if she can have as minimal amount of barium as possible so as to avoid becoming constipated from that. I have given her an appointment to see me in the Fall but advised her to certainly keep me posted if she goes to [facility] or to call me if she has any problems or questions I can be of assistance with. Rosa was comfortable with this plan. Thank you again for allowing me to participate in Rosa's care. I shall continue to keep you advised of her progress. 04/09/2024 Celiac disease (ICD-10 - K90.0) Overall, Rosa appears well from a clinical standpoint. While her bowel movements do remain problematic for her with ongoing significant constipation and requiring of significant amounts of medication, the current bowel regimen seems to at least be keeping things somewhat stable and improved compared to previously where she was going days at a time without a bowel movement and then having frequent awakenings at night with fecal incontinence. Her improved lifestyle with less stress at work and in general also seems to be helping her. While things do seem improved, I did encourage her to call the [facility] [place] for evaluation to see whether they think she would be a good candidate for any other type of treatment from a Medical or Surgical standpoint in regard to her significant bowel issues. While things do seem to be somewhat improved at the present time, I reviewed with her that I am concerned that as she gets older things can definitely potentially get worse. Therefore, I think now would be the best time for her to investigate other options that might be available. She will call the [facility] [place] see if her insurance will allow her to go there and will then advise me if I need to send records there before her visit. In regard to her swallowing issues and question of aspiration, I shall schedule her for a modified barium swallow study with the speech pathology department. She will check with radiology to see if she can have as minimal amount of barium as possible so as to avoid becoming constipated from that. I have given her an appointment to see me in the Fall but advised her to certainly keep me posted if she goes to [facility] or to call me if she has any problems or questions I can be of assistance with. Rosa was comfortable with this plan. Thank you again for allowing me to participate in Rosa's care. I shall continue to keep you advised of her progress. Plan Of Treatment Treatment Notes Assessment Notes Constipation, unspecified constipation t ype Call [facility] [place].....let me know and I will send the records to [facility]. Next Appt Details Follow Up: 2024, Janelle n: Provider Name:Meng Anum Wakefield , 12/10/2024 09:30:00 AM, [address], [address], [place], [address], Progress Notes * LAILA LEIJA:1965 (58 yo F)Acc No.[id number]:04/09/2024 Progress Notes Patient:?ROSA LEIJA Provider:?Meng Wakefield MD :1965???Age:58 Y???Sex:Female D ate:04/09/2024 Address:[address] [place] [address] [id number] Pcp:Chema Payne Subjective: * Chief Complaints: * ???1. Patient presents today for celiac. * Medical History:?Bipolar, AD HD, PTSD, She stays on a gluten-free diet-has had a positive [facility] Disease Genetic Profile, although her duodenal biopsies were nomal in 2014 and celiac disease serology labs were negative as well....although she was on a gluten-free diet at the time of those studies. Duodenal biopsies were normal and celiac disease laboratories were negative in May of 2021, High Cholesterol, Chronic constipation-Sitz marker study revealed accumulation of the great majority of the markers in the area of the sigmoid colon. Fecal defecography study in 09/2021 at [facility] revealed no significant change in the anorectal [...] incontinence with relatively atonic and insensate rectum. A, Denies [place],DM,CVA,Lung disease,renal disease, Cystocele--surgery as below, Hypothyroidism, Negative colonoscopy in [address] Harrington, Negative EGD in [address] Harrington-negative biopsies from the duodenum and stomach, Urinary incontinence resolved with the below surgery by Dr. Latham in 07/2021, Incomplete colonoscopy in May of 2021, including a poor prep despite a two-day preparation. Colon biopsies were negative for microscopic colitis., Upper endoscopy in May of 2021 revealed a small hiatal hernia, but there no evidence of esophagitis nor Lemons's esophagus. Duodenal biopsies were negative for any sign of active celiac disease. Gastric biopsies were negative for H. pylori. Proximal esophageal biopsies were negative for eosinophilic esophagitis.. * Surgical History:?Vaginal hy sterectomy 2007, Perforated appendix with an associated peritonitis, ileus, right side pleural effusion, and sepsis 2019, Breast augmentation , Cystocele repair, Rectocele repair, Vaginal vault repair, Bladder suspension with a sling--Dr. Latham 07/2021--she describes an excellent clinical improvement from the surgery as of the 04/2022 OV , appendectomy , breast biopsy right . * Family History:?Father: chavo freeman, diagnosed with HTN (hypertension), Diabetes.?Mother: alive, diagnosed with HTN (hypertension).? No family history colon cancer nor colon polyps. * Social History:?Tobacco Use:?Tobacco Use/Smoking?Patient is a?nonsmoker.?Drugs/Alcohol:?Alcohol Screen?Did you have a drink containing alcohol in the past year??No,?Points?0,?Interpretation?Negative.?Miscellaneous:?Marital status: . 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 ???Nonsmoker; no sig alcohol. * Medications:?Taking Biotin 1 0 MG Tablet 1 tablet Orally Once a day , Taking Ativan 1 MG Tablet 1 tablet at bedtime as needed Orally Once a day , Taking LaMICtal 100 MG Tablet 1 tablet Orally Once a day , Taking Ritalin 20 MG Tablet 1 tablet on an empty stomach Orally Twice a day , Taking carBAMazepine 200 MG Tablet 1 tablet Orally once a day/hs , Taking Valtrex 500 MG Tablet 1 tablet Orally Once a day , Notes to Pharmacist: prn, Taking Xyzal , Notes to Pharmacist: prn, Taking Remeron 30 MG Tablet 1 tablet at bedtime Orally Once a day , Notes to Pharmacist: hs, Taking Senna 8.6 MG Capsule 2 capsules Orally 1-2 prn constipation , Notes to Pharmacist: prn, Taking Docusate Sodium 250 MG Capsule 2 capsule Orally QHS , Notes to Pharmacist: prn, Taking Bisacodyl 5 MG Tablet Delayed Release 5 tablets Orally QHS , Notes to Pharmacist: prn, Taking Simvastatin 40 MG Tablet 1 tablet in the evening Orally Once a day , Taking Synthroid 75 MCG Tablet 1 tablet in the morning on an empty stomach Orally Once a day , Taking Probiotic - Tablet Chewable as directed Orally , Discontinued Cinnamon 500 MG Capsule as directed Orally , Discontinued Amitriptyline HCl 25 MG Tablet 2 tablet at bedtime Orally Once a day , Discontinued [place] Carbonate ER 450 MG Tablet Extended Release 2 tablet at bedtime Orally Once a day , Discontinued QUEtiapine Fumarate 400 MG Tablet 1 tablet at bedtime Orally Once a day , Discontinued Vitamin D-3 125 MCG (5000 UT) Tablet as directed Orally , Discontinued Strattera 60 MG Capsule 1 capsule in the morning Orally Once a day , Medication List reviewed and reconciled with the patient * Allergies:?Dilaudid, Midazol am. Objective: * Vitals:?Wt: 133 lbs, Ht: 63 in, BMI:23.56Index, BP: 111/11 mm Hg, Wt-k.33. Assessment: * Assessment: 1.?Constipation, unspecified constipation type - K59.00 (Primary)???2.?Pelvic floor dysfunction in female - M62.89???3.?Celiac disease - K90.0??? Overall, Rosa appears well f rom a clinical standpoint. While her bowel movements do remain problematic for her with ongoing significant constipation and requiring of significant amounts of medication, the current bowel regimen seems to at least be keeping things somewhat stable and improved compared to previously where she was going days at a time without a bowel movement and then having frequent awakenings at night with fecal incontinence. Her improved lifestyle with less stress at work and in general also seems to be helping her. While things do seem improved, I did encourage her to call the [facility] [place] for evaluation to see whether they think she would be a good candidate for any other type of treatment from a Medical or Surgical standpoint in regard to her significant bowel issues. While things do seem to be somewhat improved at the present time, I reviewed with her that I am concerned that as she gets older things can definitely potentially get worse. Therefore, I think now would be the best time for her to investigate other options that might be available. She will call the [facility] [place] see if her insurance will allow her to go there and will then advise me if I need to send records there before her visit. In regard to her swallowing issues and question of aspiration, I shall schedule her for a modified barium swallow study with the speech pathology department. She will check with radiology to see if she can have as minimal amount of barium as possible so as to avoid becoming constipated from that. I have given her an appointment to see me in the Fall but advised her to certainly keep me posted if she goes to [facility] or to call me if she has any problems or questions I can be of assistance with. Rosa was comfortable with this plan. Thank you again for allowing me to participate in Rosa's care. I shall continue to keep you advised of her progress. Plan: * Treatment: * Follow Up:?2024 * * The named appointment provid er may or may not be the originator of this progress note, and it is not deemed complete until electronically signed by the appointment provider. Sign off status: Pending * Provider:?Meng Wakefield MD Date:? 025 Generated for Abram frazier/Sharron/Ayanaitting on:?05/07/2024 10:02 AM EDT
--- OUTSIDE RECORDS SUMMARY | 2024-05-07 10:02 | XMS_ITS | Patient Health Record ---
Author Organization [facility] Address [address] [place] [address] Care Team Providers Care Primer Supervisor Name Role Phone Chema Payne Primary Care Provider Unavailab Meng Ugalde Unavailable [phone] Allergies Allergen (clinical drug ingredient) Drug/Non Drug Allergy documented on EMR Reaction Allergy Type Onset Date Status Information temporarily unavailable Midazolam Unknown Drug Allergy Active Information temporarily unavailable Dilaudid Unknown Drug Allergy Active Reason For Referral Referring Provider First Name Chema Referring Provider Last Name Elmer Referred Organization [facility] Referred Provider Meng Wakefield Referred Address [address],[place], [place],[address], Referred Provider Specialty Gastroentero logy General Notes Mariana Eli 2024 01:52:42 PM >requested o blue referral from dr owen' office for visit with Dr. Wakefield on 04-09-24 Referral Priority Routine Medications Medication SIG (Take, Route, Fr equency, Duration) Notes Start Date End Date Status Docusate Sodium 250 MG 2 capsule Orally [...] 1 tablet Orally Once a day Active Probiotic - as directed Orally Active Ativan 1 MG 1 tablet at bedtime as needed Orally Once a day Active Synthroid 75 MCG 1 tablet in the morn ing on an empty stomach Orally Once a day for 30 days Active Biotin 10 MG 1 tablet Orally Once a day Active Simvastatin 40 MG 1 tablet in the even ing Orally Once a day for 30 days Ac tive Bisacodyl 5 MG 5 tablets Orally QHS prn Active Immunizations Vaccine Route Administration Date Status Comme nts Influenza Unknown 11/18/2021 Administered Influenza Unknown 05/18/2021 Refused Social History Tobacco Use: Social History Observation Description Date Details (start date - stop date) Never Smoker NA - NA Tobacco Use/Smoking Question Answer Notes Patient is a nonsmoker Alcohol Screen Question Answer Notes Did you have a drink containing alcohol in the p ast year? No Points 0 Interpretation Negative Section Notes: Nonsmoker; no sig alcohol Nonsmoker; no sig alcohol Nonsmoker; no sig alcohol Nonsmoker; no sig alcohol Problems Problem Type SNOMED Code ICD Code Onset Dates Problem Status W/U Status Risk Notes Problem 928675526 Encounter for screening for malignant neoplasm of colon (Z12.11) Active confirmed Problem Constipation (92978333) Constipation (K59.00) Active confirmed Problem 63688386 Slow transit constipation (K59.01) Active confirmed Problem 409204722 Celiac disease (K90.0) Active confirmed Problem Imaging of abdomen abnormal (821608569) Abnormal findings on diagnostic imaging of other abdominal regions, including retroperitoneum (R93.5) Active confirmed Problem 73386595 Constipation, unspecified constipation type (K59.00) Active confirmed Problem 37566166 Pharyngoesophage al dysphagia (R13.14) Active confirmed Problem Flatulence, eructation and gas pain (160637511) Abdominal distension (R14.0) Active confirmed Problem 707071456 Pelvic floor dysfunction in female (M62.89) Active confirmed Vital Signs Blood pressure diastolic 11 mm Hg 04/09/2024 Height 63 in 04/09/2024 Blood pressure systolic 111 mm Hg 04/09/2024 Weight 133 lbs 04/09/2024 BMI 23.56 kg/m2 04/09/2024 Encounters Encounter Location Date Provider Diagnosis [facility] [address] [place] [address] 04/09/2024 Meng Wakefield Constipation, unspecified constipation type K59.00 ; Pelvic floor dysfunction in female M62.89 and Celiac disease K90.0 [facility] [address] [place] [address] 02/04/2024 Meng Wakefield [facility] [address] [place] [address] 05/01/2024 Meng Ashu Assessments Encounter Date Diagnosis (ICD Code) Assessment Notes Treatment Notes Treatment Clinical Notes Section Notes 04/09/2024 Constipation, unspecified constipation type (ICD-10 - K59.00) [place] [facility] [place].....let me know and I will send the records [place] [facility] Overall, Rosa appears well from a clinical [...] I did encourage her to call the [facility] [place] for evaluation to [...] might be available. She will call the [facility] to see if her insurance will allow [...] keep me posted if she goes to [facility] or to call me if she has [...] I did encourage her to call the [facility] [place] dysfunction [place] for evaluation to [...] might be available. She will call the [facility] to see if her insurance will allow [...] keep me posted if she goes to [facility] or to call me if she has [...] I did encourage her to call the [facility] [place] dysfunction [place] for evaluation to [...] might be available. She will call the [facility] to see if her insurance will allow [...] keep me posted if she goes to [facility] or to call me if she has any problems or questions I can be of assistance with. Rosa was comfortable with this plan. Thank you again for allowing me to participate in Rosa's care. I shall continue to keep you advised of her progress. Plan Of Treatment Pending Test Test Name Order Date LIVER [...] Next Appt Details Provider Name:Meng Wakefield , 12/10/2024 09:30:00 AM, [address], [address], [place], [address], Insurance Providers Payer Name Payer Address Payer Phone Subscriber Number Group Number Insured Name Patient Relationship to Insured Coverage Start Date Coverage End Date [facility] [employer] [address] [place] [address] [id number] ROSA LEIJA Self - patient is the insured Medical (General) History Medical History History ICD Code Bipolar ADHD PTSD She stays on a gluten-free d iet-has had a positive [employer] Disease Genetic Profile, although her duodenal biopsies [...] colon. Fecal defecography study in 09/2021 at [facility] revealed no significant change in the anorectal [...] relatively atonic and insensate rectum. A Denies [place],DM,CVA,Lung disease,renal dise ase Cystocele--surgery as below Hypothyroidism [...] for eosinophilic esophagitis. Surgical History Surgery Date(Month/Year) breast biopsy right appendectomy Cystocele repair, Rectocele repair, Vaginal vault repair, Bladder suspension with a sling--Dr. Latham 07/2021--she describes an excellent clinical improvement from the surgery as of the 04/2022 OV Breast augmentation Perforated appendix with an associated peritonitis, ileus, right side pleural effusion, and sepsis 2019 Vaginal hysterectomy 2007
--- OUTSIDE RECORDS SUMMARY | 2024-05-07 10:02 | XMS_ITS ---
Author Organization [facility] Address [address] [place] [address] Care Team Providers Care Manager Performance Improvement Name Role Phone Chema Payne Primary Care Provider Unavailab Meng Ugalde [phone] REASON FOR VISIT please complete 04-09-24 ov Encounters Encounter Location Date Provider Diagnosis [facility] [address] [place] [address] 05/01/2024 Meng Wakefield Plan Of Treatment Next Appt Details Provider Name:Meng Wakefield , 12/10/2024 09:30:00 AM, [address], [address], [place], [address], Progress Notes * MILLA LEIJAADOB:1965 (58 yo F)Acc No.[id number]:05/01/2024 Patient:?SHIRA LEIJA :1965???Age:58 Y???Sex:Female Address:[address], [place] [address] * true * Date:? Generated for Printi ng/Familtong/eTransmitting on:?05/07/2024 10:01 AM EDT
--- OUTSIDE RECORDS SUMMARY | 2024-05-07 10:02 | XMS_ITS | Clinical Summary ---
Author Organization [facility] Address [address] [place] [address] Care Team Providers Care Emergency Planning And Response Manager Name Role Phone Ariadna Cervantes DO Primary Care Provider [phone] Allergies Active Allergy Reactions Criticality Noted Date [...] hyperactivity disorder) Overview: Seen at [facility] Immunizations Name Administration Dates Next Due [...] age to complete this topic Care Teams Emergency Planning And Response Manager Relationship Specialty Start Date End Date Ariadna Cervantes DO PCP - General Family Medicine 05/09/17
--- OUTSIDE RECORDS SUMMARY | 2024-05-07 10:02 | XMS_ITS ---
Author Organization [facility] Address [address] [place] [address] Care Team Providers Care Facility Worker Name Role Phone Chema Payne Primary Care Provider Unavailab Meng Ugalde [phone] REASON FOR VISIT Rosa needs these disability forms JP Encounters Encounter Location Date Provider Diagnosis [facility] [address] [place] [address] 02/04/2024 Meng Wakefield Plan Of Treatment Next Appt Details Provider Name:Meng Wakefield , 12/10/2024 09:30:00 AM, [address], [address], [place], [address], Progress Notes * MILLA LEIJAADOB:1965 (58 yo F)Acc No.[id number]:02/04/2024 Patient:?ROSA LEIJA :1965???Age:58 Y???Sex:Female Address:[address], [place] [address] * true * Date:? Generated for Printi ng/Familtong/eTransmitting on:?05/07/2024 10:01 AM EDT
[2024-05-07 10:19] LABS: Basophils Percent Auto 0.7 % (0-2); Eosinophils Absolute Auto 0.1 X10*3/uL (0.0-0.4); Eosinophils Percent Auto 2.4 % (0-4); Hematocrit 41.6 % (37.0-47.0); Hemoglobin 14.1 g/dl (12.0-16.0); Imm Gran Abs Auto 0.01 X10*3/uL (0.00-0.03); Imm Gran Pct Auto 0.2 % (0.0-0.4); Lymphocytes Absolute Auto 1.8 X10*3/uL (1.2-4.9); Lymphocytes Percent Auto 40.3 % (20-40); Mean Corpuscular HGB Conc 33.9 g/dl (31.0-35.0); Mean Corpuscular Hemoglobin 31.3 pg (27.0-33.0); Mean Corpuscular Volume 92.4 fL (80.0-98.0); Mean Platelet Volume 9.7 fL (9.4-12.3); Monocytes Absolute Auto 0.5 X10*3/uL (0.1-1.2); Monocytes Percent Auto 9.8 % (2-11); Neutrophils Absolute Auto 2.1 x10*3/uL (2.0-8.3); Neutrophils Percent Auto 46.6 % (45-73); Platelet Count 241 X10*3/uL (160-400); Red Cell Distribution Width 12.1 % (11.0-16.0); White Blood Count 4.6 X10*3/uL (4.8-10.8)
[2024-05-07 10:58] LABS: Carbamazepine Tegretol 3.3 mcg/mL (5.0-12.0)
[2024-05-11 00:48] LABS: Lamotrigine Lamictal 5.3 mcg/mL (2.5-15.0)
== END 2024-05-07 09:07 | disposition home or self-care (01) ==
LOC: HO.LAB 09:06
PROVIDERS: PCP Family Medicine; Visit Provider Psychiatry & Neurology Psychiatry
DX: F31.32 Bipolar disorder, current episode depressed, moderate (principal)
CPT/HCPCS: 36415; 80156; 80175; 85025

== ENCOUNTER 2024-08-16 13:34 | Outpatient (AMB) | payer BC, SELFPAY ==
--- NOTE | 2024-08-16 13:36 | A.OFFPC_ITS ---
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: No Allergies midazolam (From VERSED) Allergy (Intermediate, Verified 08/16/24 13:37) HYPERACTIVITY, increased hyperactivity hydromorphone (From Dilaudid) Allergy (Unknown, Verified 08/16/24 13:37) ITCHING Tobacco use date assessed: 08/16/24 Dental Screening Dental Screen Date: 08/16/24 Did you have a dental visit in the last 12 months?: Yes Did you have a dental problem in the last 6 months where you did not have access to dental care?: No Was dental information given to patient?: Patient has dentist HPI HPI Comments History of Present Illness Details History of Present Illness - The patient is a 58-year-old female pr esenting with left shoulder and neck pain, ongoing for months. Worse since onset. - Shoulder pain has been persistent, wor sening, and unrelieved irrespective of motion or rest, with perceived extension to the arm and chest. - Tried changing bras and purses w/o rel ief. - Weakness d/t pain - No loss of function - Constant bowel issues with episodes of constipation, followed by significant incontinence crisis. 08/29/24 in [place] will be having the test done She had 20 episodes of incont today; twice while here in the office. Having rectal pain as a result - Previously confirmed hyperparathyroidi sm, managed with vitamin D and advised calcium intake, active w/ Endo - Persistent leg restlessness and discom fort reported but better. Review of Systems - Musculoskeletal: Reports left shoulder pain, neck pain, back pain. Denies shortness of breath or cardiac-related symptoms. - Gastrointestinal: Reports constipation followed by severe bowel incontinence. Denies abdominal pain. - Endocrine: Reports hyperparathyroidism , currently managed. - Neurological: Reports restless legs an d tingling into the arm. Physical Exam General: Well developed, well nourished, in no acute distress. Appears stated age. Dario present Head: Normocephalic, atraumatic. Neck Supple FROM pain w/ palp over distal cervical spine and L paraspinal area Musculoskeletal: L arm neurovasc intact, pain over anterior shoulder, sternoclenoidmastoid muscle. Reduced strength d/t pain. No redness or swelling to shoulder joint. Normal lift off test. Pulses: Peripheral pulses are equal and palpable bilaterally. : Incont of stool Psych: Mood and affect appropriate. Depressed when talking about GI issues. Discussion Notes I discussed with the patient the probable impact of cervical spine issues on her symptoms, recommending an MRI of the cervical spine to elucidate potential nerve involvement. We reviewed the patient's ongoing issues with hyperparathyroidism and the necessity to maintain calcium intake as instructed. The patient's bowel condition was acknowledged, and I advised physical therapy as a conservative man agement approach for musculoskeletal discomfort. Consent for an MRI and plans for physical therapy were discussed, highlighting that PT should be prioritized over chiropractic methods to avoid triggering bowel symptoms. We reviewed follow-up plans post-MRI results and the importance of advocating insurance approval for proposed diagnostic procedures. Assessment and Plan 1. Left shoulder pain/Neck pain - MRI cervical spine and L shoulder with out contrast ordered. - Physical therapy initiated for symptom management. 2. Hyperparathyroidism - Maintain calcium intake and vitamin D supplementation. 3. Bowel incontinence and constipation - Manage symptoms; pelvic floor evaluati on 08/29/24 in [place] scheduled - Use witch allison and barriers for comfo rt Patient Instructions - Continue with vitamin D and calcium in take as directed. - If insurance approves, schedule and co mplete MRI for neck and shoulder. - Begin physical therapy and call the [facility] office to confirm scheduling. - Use witch allison and barrier creams as advised to ease discomfort. - Report worsening symptoms immediately. - I will fu once results of MRI are back . Consent Patient was informed and verbally consented to the use of an ambient scribe for clinic note documentation during this visit. Total time spent caring for the patient today was 45 minutes. This includes time spent before the visit reviewing the chart, time spent during the visit, and time spent after the visit on documentation, reviewing laboratory results, diagnostic imaging, medications, performing a medically necessary evaluation, counseling on diagnoses, care coordination, ordering appropriate tests, ordering appropriate medications, review of tests performed by other providers, reporting test results with the patient, communication with other healthcare providers. [facility] Medical History History of cystocele Hypothyroid Hypercholesterolemia Constipation by delayed colonic transit Celiac disease PTSD (post-traumatic stress disorder) ADHD Bipolar 1 disorder Surgical History Hx of colonoscopy (~2021) Hx of esophagogastroduodenoscopy History of breast augmentation History of appendectomy History of tonsillectomy H/O breast augmentation H/O: hysterectomy Social History Household Members: None Both parents involved: No Caregiver staying overnight: No Housing: Condominium Are you a primary chronic care nurse to a significant other at home: No Do you presently have visiting nurse or other home services: No 75 years or older and lives alone: No Alcohol intake: never Patient Tobacco Use Status: Never used Tobacco e-Cigarette/Vaping Use: Never Used service: No 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 1. Little interest or pleasure in doing things: more than half the days 2. Feeling down, depressed, or hopeless: more than half the days 3. Trouble falling or staying asleep, or sleeping too much: more than half the days 4. Feeling tired or having little energy: more than half the days 5. Poor appetite or overeating: more than half the days 6. Feeling bad about yourself - or that you are a failure or have let yourself or your family down: not at all 7. Trouble concentrating on things, such as reading the newspaper or watching television: more than half the days 8. Moving or speaking so slowly that other people could have noticed. Or the opposite - being so fidgety or restless that you have been moving around a lot more than usual: more than half the days 9. Thoughts that you would be better off or of hurting yourself in some way: not at all Total score: 14 Depression Screening Interpretation: Positive Depression Screening Done: Yes 00006 - PHQ-9 Billing: Yes Source: Developed by Elen RoachW. Thomas, Tamir Mendes and colleagues, with an educational dorota from [employer]. Thrive Questionnaire Date Thrive assessed: 08/16/24 I am a: Patient What is your living situation today?: I have a steady place to live Within the past 12 months, did the food you bought not last and you didn't have the money to get more?: Never true Within the past 12 months, did you worry whether your food would run out before you got money to buy more?: Never true Do you have trouble paying for medicines?: No Do you have trouble getting transportation to medical appointments?: No Do you have trouble paying your heating and electricity bill?: No Do you have trouble taking care of your child, family member or friend?: No Do you have trouble with day-to-day activities such as bathing, preparing meals, shopping, managing finances, etc.?: I choose not to answer this question Are you currently unemployed and looking for a job?: No Are you interested in more education?: No Please select the resources that you would like help with: None Currently or been in a relationship where the following occur: No concerns reported THRIVE Score: 0 AUDIT C Alcohol Use Questionnaire (AUDIT-C) 1. How often do you have a drink containing alcohol?: Never Total Score: 0 ADIS-7 AMB Questionnaire ADIS-7 Date ADIS - 7 assessed: 08/16/24 Feeling nervous, anxious, or on edge: 3 = Nearly every day Not being able to stop or control worryin = Nearly every day Worrying too much about different things: 3 = Nearly every day Trouble relaxin = Nearly every day Being so restless that it is hard to sit still: 3 = Nearly every day Becoming easily annoyed or irritable: 2 = More than half the days Feeling afraid as if something awful might happen: 2 = More than half the days Total ADIS-7 score (0-4 normal; 5-9 mild; 10-14 moderate; 15-21 severe): 19 Source: Developed by Drs. Meng Sosa, Tamir Luis and colleagues, with an educational dorota from [employer]. ADIS-7 Assessment Billing ADIS-7 Assessment Tool: ADIS-7 Assessment 61455 Physical exam (Primary Care) Vital Signs: Last Vital Signs Temp 97.1 F 08/16/24 13:42 Pulse 74 08/16/24 13:42 Resp 12 08/16/24 13:42 BP 128/74 08/16/24 13:42 Pulse Ox 98 08/16/24 13:42 Oxygen Delivery Method Room Air 08/16/24 13:42 BMI result Body Mass Index 22.9 Tobacco/Smoking Status: Tobacco use Status Tobacco use date assessed 08/16/24 08/16/24 13:39 Patient Tobacco Use Status Never used Tobacco 08/16/24 13:39 e-Cigarette/Vaping Use Never Used 08/16/24 13:39 PHQ-9: PHQ-9 Score PHQ-9: Total score 14 08/16/24 13:39 Depression Screening Interpretation: Positive Thrive Assessment: Date of Thrive Assessment Date Thrive assessed 08/16/24 08/16/24 13:39 Currently or been in a relationship where the following occur: No concerns reported Coding Level of Care Code Est Pt Level 5 (53970) Complex EM visit Add On G2211 Diagnoses Chronic left shoulder pain M25.512; G89.29 Chronicity: chronic Neck pain M54.2 Primary hyperparathyroidism E21.0 Full incontinence of feces R15.9 Fecal incontinence type: full incontinence of feces Colonic inertia K59.9 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 Additional Codes ADIS-7 Assessment Billing - ADIS-7 Assessment Tool: ADIS-7 Assessment 31177 ([id number]) PHQ-9 - 87205 - PHQ-9 Billing: Yes ([id number]) Assessment & Plan Assessment & Plan (1) Left shoulder pain: Code(s): M25.512 - Pain in left shoulder Category: Medical Qualifiers: Chronicity: chronic Qualified Code(s): M25.512 - Pain in left shoulder; G89.29 - Other chronic pain (2) Neck pain: Code(s): M54.2 - Cervicalgia Category: Medical (3) Primary hyperparathyroidism: Code(s): E21.0 - Primary hyperparathyroidism Category: Medical (4) Fecal incontinence: Code(s): R15.9 - Full incontinence of feces Category: Medical Qualifiers: Fecal incontinence type: full incontinence of feces Qualified Code(s): R15.9 - Full incontinence of feces (5) Colonic inertia: Code(s): K59.9 - Functional intestinal disorder, unspecified Category: Medical (6) Cathartic colon: Code(s): K59.89 - Other specified functional intestinal disorders Category: Medical Plan . Orders: Orders MR shoulder LT wo con Today M25.512 - Pain in left shoulder, M54.2 - Cervicalgia PT Evaluation and Treatment Today M25.512 - Pain in left shoulder, M54.2 - Cervicalgia MR cervical spine w con Today M25.512 - Pain in left shoulder, M54.2 - Cervicalgia
--- OUTSIDE RECORDS SUMMARY | 2024-08-16 13:38 | XMS_ITS | Patient Health Record ---
Author Organization [facility] Address [address] [place] [address] Care Team Providers Care Bell Cleaner Name Role Phone Chema Payne Primary Care Provider Unavailab Meng Ugalde Unavailable [phone] Allergies Allergen (clinical drug ingredient) Drug/Non Drug Allergy documented on EMR Reaction Allergy Type Onset Date Status Information temporarily unavailable Midazolam Unknown Drug Allergy Active Information temporarily unavailable Dilaudid Unknown Drug Allergy Active Reason For Referral Referring Provider First Name Chema Referring Provider Last Name Elmer Referred Organization [facility] Referred Provider Meng Wakefield Referred Address [address],[place], [place],[address], Referred Provider Specialty Gastroentero logy General Notes [...] Problem Status W/U Status Risk Notes Problem 466409962 Encounter for screening for malignant neoplasm of colon (Z12.11) Active confirmed Problem Constipation (27070355) Constipation (K59.00) Active confirmed Problem 44363348 Slow transit constipation (K59.01) Active confirmed Problem 106887611 Celiac disease (K90.0) Active confirmed Problem Imaging of abdomen abnormal (902590417) Abnormal findings on diagnostic imaging of other abdominal regions, including retroperitoneum (R93.5) Active confirmed Problem 29166872 Constipation, unspecified constipation type (K59.00) Active confirmed Problem 54117021 Pharyngoesophage al dysphagia (R13.14) Active confirmed Problem Flatulence, eructation and gas pain (899433639) Abdominal distension (R14.0) Active confirmed Problem 628476507 Pelvic floor dysfunction in female (M62.89) Active confirmed Vital Signs Blood pressure diastolic 11 mm Hg 04/09/2024 Height 63 in 04/09/2024 Blood pressure systolic 111 mm Hg 04/09/2024 Weight 133 lbs 04/09/2024 BMI 23.56 kg/m2 04/09/2024 Encounters Encounter Location Date Provider Diagnosis [facility] [address] [place] [address] 04/09/2024 Meng Wakefield Constipation, unspecified constipation type K59.00 ; Pelvic floor dysfunction in female M62.89 and Celiac disease K90.0 [facility] [address] [place] [address] 02/[facility] [address] [place] [address] 05/01/2024 Meng Wakefield [facility] [address] [place] [address] 08/02/2024 Meng Wakefield [facility] [address] [place] [address] 08/12/2024 Meng Wakefield Assessments Encounter Date Diagnosis (ICD Code) Assessment Notes Treatment Notes Treatment Clinical Notes Section Notes 04/09/2024 Constipation, unspecified constipation type (ICD-10 - K59.00) Call [facility] Pelvic [facility] Dysfunction [facility].....let me know and I will send the records to [facility]. Rosa unfortunately continues to have significant problems in regard to what I feel is the pelvic floor dysfunction with associated bowel movement irregularity including sudden and problematic episodes of incontinence. 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 At this point I did advise her to certainly continue her gluten-free diet in regard to the underlying celiac disease. She will continue her bowel regimen and I have encouraged her to try to get an appointment at [facility] at their pelvic floor dysfunction center. I think a complete evaluation at their tertiary center could potentially yield some helpful information and then hopefully allow them to be able to help her symptomatology. I have given her an appointment to see me again in the Fall. I did advise her to certainly contact me in the interim if she has any problems or questions I can be of assistance with. Rosa was comfortable with this plan. Thank you again for allowing me to participate in Rosa's care. I shall continue to keep you advised of her progress. 04/09/2024 Pelvic floor dysfunction in female (ICD-10 - M62.89) Rosa unfortunately continues to have significant problems in regard to what I feel is the pelvic floor dysfunction with associated bowel movement irregularity including sudden and problematic episodes of incontinence. 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 At this point I did advise her to certainly continue her gluten-free diet in regard to the underlying celiac disease. She will continue her bowel regimen and I have encouraged her to try to get an appointment at [facility] at their pelvic floor dysfunction center. I think a complete evaluation at their tertiary center could potentially yield some helpful information and then hopefully allow them to be able to help her symptomatology. I have given her an appointment to see me again in the Fall. I did advise her to certainly contact me in the interim if she has any problems or questions I can be of assistance with. Rosa was comfortable with this plan. Thank you again for allowing me to participate in Rosa's care. I shall continue to keep you advised of her progress. 04/09/2024 Celiac disease (ICD-10 - K90.0) Rosa unfortunately continues to have significant problems in regard to what I feel is the pelvic floor dysfunction with associated bowel movement irregularity including sudden and problematic episodes of incontinence. 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 At this point I did advise her to certainly continue her gluten-free diet in regard to the underlying celiac disease. She will continue her bowel regimen and I have encouraged her to try to get an appointment at [facility] at their pelvic floor dysfunction center. I think a complete evaluation at their tertiary center could potentially yield some helpful information and then hopefully allow them to be able to help her symptomatology. I have given her an appointment to see me again in the Fall. I did advise her to certainly contact me in the interim if she has any problems or questions [...] Name:Meng Wakefield , 12/10/2024 09:30:00 AM, [address], [address], [place], [address], Insurance Providers Payer Name Payer Address Payer Phone Subscriber Number Group Number Insured Name Patient Relationship to Insured Coverage Start Date Coverage End Date [facility] [employer] [address] [place] [address] [id number] ROSA LEIJA Self - patient is the insured Medical (General) History Medical History History ICD Code Bipolar ADHD PTSD She stays on a gluten-free d iet-has had a positive [employer] Ceila Disease Genetic Profile, although her duodenal biopsies were nomal in 2014 and celiac disease serology labs were negative as well....although she was on a gluten-free diet at the time of those studies. Duodenal biopsies were normal and celiac disease laboratories were negative in May of 2021 High Cholesterol Chronic constipation-[facility] rker study revealed accumulation of the great majority of the markers in the area of the sigmoid colon. Fecal defecography study in 09/2021 at [facility] revealed no significant change in [...] incontinence with relatively atonic and insensate rectum. Denies IN,DM,CVA,Lung disease,renal dise ase Cystocele- surgery as below Hypothyroidism Negative colon[place] [address] Cindy peterson Negative EGD [place] [address] Radha Harrington-negative biopsies from the duodenum and stomach Urinary incontinence resolve d with the below surgery by Dr. Latham in 07/2021 Incomplete colonoscopy in Ap 2021, including a poor prep despite a [...] for eosinophilic esophagitis. Surgical History Surgery Date(Month/Year) Repeat urologic procedure with Dr. Scar hernandez in November 2023 Breast biopsy-right Appendectomy Cystocele repair, Rectocele repair, Vaginal vault repair, Bladder suspension with a sling- Dr. Latham 07/2021- she describes an excellent clinical improvement from the surgery as of the 04/2022 OV Breast augmentation Perforated appendix with an associated peritonitis, ileus, right side pleural effusion, and sepsis 2020 Vaginal hysterectomy 2007
--- OUTSIDE RECORDS SUMMARY | 2024-08-16 13:38 | XMS_ITS | Clinical Summary ---
Author Organization [facility] Address [address] [place] [address] Care Team Providers Care Jewelry Jobber Name Role Phone Ariadna Cervantes DO Primary Care Provider [phone] Allergies Active Allergy Reactions Criticality Noted Date [...] (attention deficit hyperactivity disorder) Overview: Seen at [facility] Immunizations Name Administration Dates Next Due [...] 78 05/14/2018 4:03 PM EDT Temperature 36.9 C (98.4 F) 05/14/2018 4:03 PM EDT Respiratory Rate 16 05/14/2018 4:03 PM EDT [...] 08/22/2020 08/22/2018, 08/21/2017, 06/06/2016 Influenza Vaccine (#1) 2024 11/13/2017 Colon Cancer Screening (Colonoscopy) 01/19/2025 01/19/2015 Pneumococcal Vaccine Aged Out No long er eligible based on patient's age to complete this topic RSV Ped < 20 months Aged Out No longe r eligible based on patient's age to complete this topic Care Teams Jewelry Jobber Relationship Specialty Start Date End Date Ariadna Cervantes DO PCP - General Family Medicine 05/09/17
[2024-08-16 13:42] VITALS: BP 128/74; PULSE 74; RESP 12; TEMP 36.2; O2SAT 98; BMI 22.9
== END 2024-08-16 14:33 | disposition home or self-care (01) ==
LOC: HO.HMCFM 13:34
PROVIDERS: PCP Family Medicine; Visit Provider Nurse Practitioner Family
DX: M25.512 Pain in left shoulder (principal); G89.29 Other chronic pain; M54.2 Cervicalgia; E21.0 Primary hyperparathyroidism; R15.9 Full incontinence of feces; K59.9 Functional intestinal disorder, unspecified; K59.89 Other specified functional intestinal disorders

== ENCOUNTER → 2024-08-16 13:34 | Outpatient (BNVA) | payer BC, SELFPAY | PROVIDERS: PCP Family Medicine; Visit Provider Nurse Practitioner Family | DX: M25.512 Pain in left shoulder (principal); G89.29 Other chronic pain; M54.2 Cervicalgia; E21.0 Primary hyperparathyroidism; R15.9 Full incontinence of feces; K59.9 Functional intestinal disorder, unspecified; K59.89 Other specified functional intestinal disorders; Z13.31 Encounter for screening for depression; Z13.39 Encounter for screening examination for other mental health and behavioral disorders | CPT/HCPCS: 96127 ==

== ENCOUNTER 2024-09-20 12:03 | Outpatient (REF) | payer BC, SELFPAY ==
--- OUTSIDE RECORDS SUMMARY | 2024-09-20 12:05 | XMS_ITS | Clinical Summary ---
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 Act parminder bisacodyl (DULCOLAX) 5 mg Tab tablet 5 mg nightly at bedtime. 4 tabs Active carBAMazepine (TEGRETOL XR) 200 MG 12 hr tablet Take 200 mg by mouth nightly at bedtime. Active ID-clobetasol propionate (20-577) 0.05 % topical ointment Apply 1 Application topically once a week. 2x a week Active dextroamphetami ne-amphetamine (ADDERALL XR) 30 MG 24 hr capsule Take 30 mg by mouth daily as needed. Active docusate sodium (STOOL SOFTENER) 100 MG capsule Take 100 mg by mouth daily before breakfast. Active estradioL (ESTRACE) 0.01 % (0.1 mg/gram) vaginal cream Place vaginally once a week. 3 x a week Active Lactobacillus no.46-B.animali s (PROBIOTIC-10) 20 billion cell Cap Active levothyroxine (SYNTHROID, LEVOTHROID) 75 MCG tablet Take 75 mcg by mouth daily before breakfast. Active LORazepam (ATIVAN) 1 MG tablet Take 1 mg by mouth daily before breakfast. Active magnesium glycinate 100 mg Tab Active melatonin 5 mg Cap Take 5 mg by mouth nightly at bedtime. 2 tabs Active mirtazapine (REMERON) 30 MG tablet Take 45 mg by mouth nightly at bedtime. Active simvastatin (ZOCOR) 40 MG tablet Take 40 mg by mouth nightly at bedtime. Active Encounters Date Type Department Care Team Description 08/29/2024 11:00 AM EDT Office Visit [facility] General & Gastrointestinal Surgery [address] [place] [address], [address] Floor, [address] [place] [id number] Soraida Buchanan, AGUSTO Grade II hemorrhoids (Primary Dx); Slow transit constipation; Full incontinence of feces from Last 3 Months Social History Tobacco Use Types Packs/Day Years Used Date Smoking Tobacco: Never Smokeless Tobacco: Never Tobacco Cessation:Counseling Given: Not Answered Education Answer Date Recorded Are you interested in more education? Not on daniel e 04/30/2024 Are you concerned about learning? Not on file 04/30/2024 No 04/30/2024 No 04/30/2024 Digital Access Answer Date Recorded No 04/30/2024 No 04/30/2024 Reliable internet access at home? Not on file 04/30/2024 Device with a working camera? Not on file Comments Unknown Sex and Gender Information Value Date Recorded Sex Assigned at Female 08/02/2024 5:12 PM EDT Legal Sex Female 10:32 PM EDT Gender Identity Female 08/02/2024 5:12 PM EDT Sexual Orientation Asexual 08/02/2024 5: 12 PM EDT Last Filed Vital Signs Vital Sign Reading Time Taken Comments Blood Pressure - - Pulse - - Temperature - - Respiratory Rate - - Oxygen Saturation - - Inhaled Oxygen Concentration - - Weight 58.1 kg (128 lb) 08/29/2024 11:03 AM EDT Height - - Body Mass Index - - Plan of Treatment Health Maintenance Due Date Last Done Comments Adult Td,Tdap Booster 1966 CARBAMAZEPINE (TEGRETOL) LEVEL 1966 LIPID PANEL 1966 TSH LEVEL 1966 DEPRESSION SCREENING 1978 HEPATITIS C SCREENING 1984 HIV ONE-TIME SCREENING (18-6 5 YEARS) 1984 PAP SMEAR 10/29/1987 MAMMOGRAM 2006 COLOGUARD 10/29/2011 COLONOSCOPY 10/29/2011 COLORECTAL CANCER SCREENING 10/29/2011 FIT TEST 10/29/2011 FOBT 10/29/2011 SIGMOIDOSCOPY 10/29/2011 VIRTUAL COLONOSCOPY 10/29/2011 PNEUMOCOCCAL VACCINES (50+ y ears) (1 of 1 - PCV) 2016 ZOSTER VACCINES (1 of 2) 2016 COVID-19 VACCINE (1 - 2023-2 5 season) 2023 SMOKING STATUS SCREENING (On ce After 26 Yrs) Completed 08/29/2024 HEPATITIS A VACCINES Aged Out No long er eligible based on patient's age to complete this topic HIB VACCINES Aged Out No longer eligi ble based on patient's age to complete this topic MENINGOCOCCAL VACCINES (ACWY) Aged Out No longer eligible based on patient's age to complete this topic MENINGOCOCCAL VACCINES (B) Aged Out N o longer eligible based on patient's age to complete this topic Medical Devices Not on file Insurance [facility] Care Teams Model Maker Plaster Relationship Specialty Start Date End Date Sarah Loredo NP [address] [place] [id number] [email or web address] PCP - General Nurse Practitioner 04/25/24 Additional Source Comments The information contained in this document represents components of the legal health record. It is not the complete legal health record.[facility]
--- OUTSIDE RECORDS SUMMARY | 2024-09-20 12:06 | XMS_ITS | Patient Health Record ---
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 Role Phone Chema Payne Primary Care Provider Unavailab Meng Ugalde Unavailable [phone] Allergies Allergen (clinical drug ingredient) Drug/Non Drug Allergy documented on EMR Reaction Allergy Type Onset Date Status Information temporarily unavailable Midazolam Unknown Drug Allergy Active Information temporarily unavailable Dilaudid Unknown Drug Allergy Active Reason For Referral Referring Provider First Name Chema Referring Provider Last Name Elmer Referred Organization [facility] Referred Provider Meng Wakefield Referred Address [address] [facility],[address],[place], [place],[address], Referred Provider Specialty Gastroentero logy General Notes [...] Problem Status W/U Status Risk Notes Problem 508406025 Encounter for screening for malignant neoplasm of colon (Z12.11) Active confirmed Problem Constipation (13437353) Constipation (K59.00) Active confirmed Problem 02591900 Slow transit constipation (K59.01) Active confirmed Problem 980139650 Celiac disease (K90.0) Active confirmed Problem Imaging of abdomen abnormal (345439996) Abnormal findings on diagnostic imaging of other abdominal regions, including retroperitoneum (R93.5) Active confirmed Problem 92434996 Constipation, unspecified constipation type (K59.00) Active confirmed Problem 19054217 Pharyngoesophage al dysphagia (R13.14) Active confirmed Problem Flatulence, eructation and gas pain (463438532) Abdominal distension (R14.0) Active confirmed Problem 107203145 Pelvic floor dysfunction in female (M62.89) Active confirmed Vital Signs Blood pressure diastolic 11 mm Hg 04/09/2024 Height 63 in 04/09/2024 Blood pressure systolic 111 mm Hg 04/09/2024 Weight 133 lbs 04/09/2024 BMI 23.56 kg/m2 04/09/2024 Encounters Encounter Location Date Provider Diagnosis [facility] [address] [place] [address] 04/09/2024 Meng Wakefield Constipation, unspecified constipation type K59.00 ; Pelvic floor dysfunction in female M62.89 and Celiac disease K90.0 [facility] [address] [place] [address] [facility]20[facility] [address] [place] [address] 05/01/2024 Meng Wakefield [facility] [address] [place] [address] 08/02/2024 Meng Wakefield [facility] [address] [place] [address] 08/12/2024 Meng Wakefield Assessments Encounter Date Diagnosis (ICD Code) Assessment Notes Treatment Notes Treatment Clinical Notes Section Notes 04/09/2024 Constipation, unspecified constipation type (ICD-10 - K59.00) Call [facility] Pelvic Floor Dysfunction Center.....let me know and I will send the records to [facility]. Rosa unfortunately continues to have significant problems [...] to try to get an appointment at [facility] at their pelvic floor dysfunction center. I [...] to try to get an appointment at [facility] at their pelvic floor dysfunction center. I [...] to try to get an appointment at [facility] at their pelvic floor dysfunction center. I [...] Name:Meng Wakefield , 12/10/2024 09:30:00 AM, [address] [facility], [address], [place], [address], Insurance Providers Payer Name Payer Address Payer Phone Subscriber Number Group Number Insured Name Patient Relationship to Insured Coverage Start Date Coverage End Date [facility] [employer] [address] [place] [address] [id number] ROSA LEIJA Self - patient is the insured Medical (General) History Medical History History ICD Code Bipolar ADHD PTSD She stays on a gluten-free d iet-has had a positive [facility] Ceila Disease Genetic Profile, although her duodenal biopsies were nomal in 2014 and celiac disease serology labs were negative as well....although she was on a gluten-free diet at the time of those studies. Duodenal biopsies were normal and celiac disease laboratories were negative in May of 2021 High Cholesterol Chronic constipation-[facility] rker study revealed accumulation of the [...] with relatively atonic and insensate rectum. Denies IL,DM,CVA,Lung disease,renal dise ase Cystocele- surgery as below [...]
[2024-09-20 14:28] LABS: Parathyroid Hormone Intact 136.7 pg/mL (8.7-77.1)
[2024-09-20 14:32] LABS: Albumin Level 5.0 g/dL (3.5-5.0); Anion Gap 13 (12-20); Blood Urea Nitrogen 13 mg/dL (9-16); Calcium 10.1 mg/dL (8.4-10.2); Carbon Dioxide 27 mmol/L (22-29); Chloride 105 mmol/L (96-108); Estimated Glomerular Filt Rate > 60; Potassium 3.9 mmol/L (3.3-5.1); Sodium 141 mmol/L (135-145)
[2024-09-23 21:49] LABS: Calcium, Ionized 5.6 mg/dL (4.7-5.5)
== END 2024-09-20 12:04 | disposition home or self-care (01) ==
LOC: HO.LAB 12:03
PROVIDERS: PCP Nurse Practitioner Family; Visit Provider Student in an Organized Health Care Education/Training Program
DX: E21.0 Primary hyperparathyroidism (principal)
CPT/HCPCS: 36415; 80048; 82040; 82306; 82330; 83970; 84100

== ENCOUNTER 2024-11-04 08:06 | Outpatient (AMB) | payer BC, SELFPAY ==
--- NOTE | 2024-11-04 08:10 | MHC.OFFVIS ---
Vital Signs 11/04/24 08:11 Height 5 ft 3 in Weight 127 lb 6.835 oz BMI 22.6 BP 106/72 Blood Pressure Location Rt brachial Position Sitting Pulse 57 Pulse Source Pulse Oximeter Pulse Oximetry (%) 97 Oxygen Delivery Method Room Air Intake Visit Reasons: Primary hyperparathyroidism Intake Note: Patient present today for Primary hyperparathyroidism office visit. Ice Cream Dipper Required: No Accompanied by: Spouse Allergies midazolam (From VERSED) Allergy (Intermediate, Verified 08/16/24 13:37) HYPERACTIVITY, increased hyperactivity hydromorphone (From Dilaudid) Allergy (Unknown, Verified 08/16/24 13:37) ITCHING Medication List - Last Reconciled 11/04/24 by Belkis Sarmiento MD bisacodyl 5 mg PO BEDTIME carbamazepine ER (Tegretol XR) 100 mg PO DAILY cholecalciferol (vitamin D3) 25 mcg PO DAILY dextroamphetamine-amphetamine 30 mg ER (Adderall XR) 30 mg PO DAILY docusate sodium (Colace) 100 mg PO BID lactobacillus combination no.4 (Probiotic) 3,000 mmu cells PO DAILY lamotrigine (Lamictal) 200 mg PO DAILY levothyroxine 75 mcg (1.5 x 50 mcg) PO DAILY 90 days lorazepam 1 mg PO TID simvastatin 40 mg PO BEDTIME 90 days valacyclovir (Valtrex) 500 mg PO BID 10 days HPI Comments Details: 59-year-old female coming in today for follow up of PTH mediated hypercalcemia. Here today with Dario . HPI from initial visit Labs from 01/17/2024 showed elevated calcium level of 11 with a albumin level of 4.5, corrected calcium would be 10.5, phosphorus normal at 3.4, magnesium normal at 2.3. Normal TSH of 0.97. Patient is on levothyroxine for hypothyroidism. Normal calcium levels back in 2019. Repeat labs 01/24/2024 showed high ionized calcium of 5.9, vitamin-D level of 60.7, PTH level inappropriately normal at 68.4. Repeat labs 02/26/2024 showed normal kidney function with a EGFR greater than 60, calcium of 9.1, ionized calcium 5.5, albumin of 4.3, vitamin-D level of 53.2, PTH of 100.7. No kidney stones No fractures No abd pain , has chronic constipation and then sometimes diarrhea, sees gasteroenterology, no mental status changes Denies increased urination thnks lost 10 lbs due to losing muscle due to decreased activity, now gaining it back due to increased activity Brother has recurrent kidney stones Was on lithium for years for bipolar disorder , psychiatrist Dr. Pedraza stopped it SeptemberOctober 2023 No history of HTN, not on HCTZ Was taking vitamin D 2000 units daily for years , stopped January 2024 Started calcium supplements 500 mg sinceApr2023 plus multivitamin which usually has about 200 mg of calcium , plus increased calcium in her diet, supplements stopped January 2024 Up until January 2024 before labs showed elevated calcium was taking 8 oz glass of milk in a day, 2 servings of yogurt daily, lots of cheese. Cut back now. DEXA scan 05/23/2023 showed osteopenia of the left femoral neck with T-score of-1.4, normal bone density of the left femur total with T-score of-0.8, osteopenia of the lumbar spine with T-score of -1.1, FRAX not meeting treatment indication. CT chest abdomen pelvis done 02/19/2024 did not identify any concern for metastatic lesion. This was done by PCP while evaluating hypercalcemia. Interval history 05/03/2024 Labs 02/26/2024: Calcium of 9.1, albumin of 4.3, corrected calcium would be 8.8, ionized calcium 5.5, vitamin-D of 53.2, normal kidney function, PTH elevated at 100.7, PTH RP 13. Labs 04/25/2024 showed calcium of 10, with albumin of 4.4, corrected calcium would be 9.6, ionized calcium normal at 5.4, phosphorus normal at 3.3, PTH elevated at 105.8, 24 hour urine calcium level not elevated at 154, calcium creatinine ratio of 139. Fractional excretion of calcium is 0.009. Calcium:stopped calcium rich foods 2 weeks ago because of fear of hypercalcemia . Vitamin-D: not taking any No fractures, no kidney stones Interval history 11/04/2024 No fractures Vitamin-D:800 units daily Calcium intake: no supplements , milk : a cup of milk daily, yogurt: almost daily 1 servings, cheese : 1 serving daily ( 2-3 servings of calcium rich foods daily) Labs repeated 09/20/24 showed normal kidney function with creatinine of 0.79, EGFR greater than 60, calcium 10.1, albumin 5, corrected calcium would be 9.1, ionized calcium mildly elevated at 5.6, normal phosphorus of 3, vitamin-D level good at 48.7, PTH elevated at 136.7 Family history Daughter Hashimotos thyroiditis Father CAD at 60 Mother TIA at 59 Past medical history Bipolar disorder ADHD PTSD Celiac Hypothyroidism Past surgical history Breast augementation Appendectomy 2020 Hystrectomy 41 Hot flashes started 51 Never smoker Alcohol: 1 drink a month rarely No drug use 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[employer], 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6 2.5 Albumin 25-OH Vitamin D Total TSH PTH Intact 05/02/19 05/17/19 08/05/19 05:59 16:47 12:24 Hgb Hct Creatinine Estimated GFR Calcium Phosphorus 3.5 Ionized Calcium Magnesium 2.5 2.6 Albumin 4.4 D 4.2 25-OH Vitamin D Total TSH PTH Intact 08/26/19 08/31/20 06/03/21 13:55 06:45 10:17 Hgb Hct Creatinine Estimated GFR Calcium 9.7 Phosphorus Ionized Calcium Magnesium Albumin 4.3 4.4 25-OH Vitamin D Total TSH PTH Intact 01/17/22 07/29/22 04/25/23 07:23 06:54 07:07 Hgb Hct Creatinine Estimated GFR Calcium 9.9 10.0 9.4 Phosphorus Ionized Calcium Magnesium Albumin 4.4 4.3 4.2 25-OH Vitamin D Total TSH PTH Intact 03/19/24 08/21/24 09/18/24 07:07 15:16 14:40 Hgb Hct Creatinine Estimated GFR Calcium 9.7 10.1 9.8 Phosphorus Ionized Calcium Magnesium Albumin 4.4 25-OH Vitamin D Total TSH PTH Intact 01/17/24 01/24/24 02/26/24 13:50 14:45 13:37 Hgb 12.9 Hct 37.8 Creatinine 0.71 Estimated GFR > 60 Calcium 11.0 H D 9.1 D Phosphorus 3.4 Ionized Calcium 5.9 H 5.5 Magnesium 2.3 Albumin 4.5 4.3 25-OH Vitamin D Total 60.7 53.2 TSH 0.97 1.58 PTH Intact 68.4 100.7 H Laboratory Tests 02/26/24 04/25/24 04/25/24 13:37 06:30 10:56 Sodium 143 Potassium 4.0 BUN 15 Creatinine 0.69 Estimated GFR > 60 > 60 Random Glucose 86 100 Calcium 9.1 D 10.0 D Ionized Calcium 5.5 5.4 Phosphorus 3.3 Albumin 4.3 4.4 25-OH Vitamin D Total 53.2 1,25 Dihydroxy Vit D 32 TSH 1.58 PTH Intact 100.7 H 105.8 H PTH Related Protein 13 Ur 24 Hour Volume 2700 Ur Creatinine mg/dL 40.00 Ur Creatinine 24 Hour 1.1 Ur Calcium 24 Hr 154 Calcium/Creat 24 Hr 139 Laboratory Tests 09/20/24 12:34 Creatinine 0.79 Estimated GFR > 60 Calcium 10.1 Ionized Calcium 5.6 H Phosphorus 3.0 Albumin 5.0 25-OH Vitamin D Total 48.7 PTH Intact 136.7 H 04/25/2024: Fractional excretion of calcium is 0.009 Ct chest 02/19/24 CT CHEST WITH IV CONTRAST, CT ABDOMEN PELVIS WITH IV CONTRAST INDICATION: E83.52 - Hypercalcemia COMPARISON: Comparison is made with the prior chest CT dated 04/30/[address] of the abdomen and pelvis dated 10/21/2021.. TECHNIQUE: CT scan of the chest, abdomen and pelvis was performed following administration of 85 mL Omnipaque 350 using standard departmental protocol. Coronal and sagittal reformatted images were generated and reviewed. Oral contrast material was not administered at the request of the referring physician. This CT exam was performed with one or more of the following dose reduction techniques: automated exposure control, adjustment of the mA and/or kV according to patient size, use of iterative reconstruction technique. DLP: 345 mGy-cm CHEST: THYROID: The visualized portion of the thyroid is unremarkable. LUNGS: The lungs are clear. MEDIASTINUM: There is no mediastinal lymphadenopathy. LELAND: There is no hilar lymphadenopathy. CARDIOVASCULATURE: The heart is normal in size. There is no pericardial effusion. There is dilatation of the descending thoracic aorta measuring 3.7 cm in diameter. DEGREE OF CORONARY CALCIFICATION: none PLEURA: There is no pleural effusion. No pneumothorax. MAIN AIRWAYS: The mainstem bronchi and proximal branches are patent. AXILLA: There is no axillary lymphadenopathy. SOFT TISSUES: Bilateral breast implants are seen in place. BONES: The bones are intact. ABDOMEN: LIVER: The liver is normal in size and contour. Multiple cysts are again noted in the liver measuring up to 1.3 cm in size. The hepatic and portal veins are patent. GALLBLADDER / BILE DUCTS: The gallbladder is unremarkable. There is no intra or extrahepatic biliary ductal dilatation. SPLEEN: The spleen is normal in size. No focal splenic lesion is identified. PANCREAS: The pancreas is unremarkable in appearance. ADRENAL GLANDS: Within normal limits. KIDNEYS/RETROPERITONEUM: No renal calculi are identified. There is no hydronephrosis. No renal masses are identified. LYMPH NODES: No abdominal or pelvic lymphadenopathy. VASCULATURE: The abdominal aorta is normal in caliber. MESENTERY/PERITONEUM: No free fluid. No masses. There is no free intraperitoneal gas. STOMACH: The stomach is unremarkable. SMALL BOWEL: The small bowel is normal in caliber. COLON: There is a large amount of stool throughout the colon. APPENDIX: The appendix is surgically absent. URINARY BLADDER/PELVIC ORGANS: The urinary bladder is collapsed, limiting detailed evaluation. The patient is status post hysterectomy. BONES / SOFT TISSUES: No suspicious bony or soft tissue abnormalities. CT/CT chest w IV con IMPRESSION: 1. Dilatation of the ascending thoracic aorta measuring up to 3.7 cm in diameter. 2. Multiple hepatic cysts. Large amount of stool throughout the colon. 3. Otherwise unremarkable contrast-enhanced CT of the chest, abdomen, and pelvis. Please note that the shoulders are nearly completely excluded from the [id number]. If there is clinical concern for shoulder pathology, dedicated imaging of the shoulders is recommended. BONE DENSITOMETRY 05/23/23 CLINICAL INDICATION: Age-related osteoporosis without current pathological fracture. COMPARISON: This is the patient's baseline examination. TECHNIQUE: Using a [employer] DXA System (software version: 13.1) manufactured by [employer], dual-energy x-ray absorptiometry was performed of the lumbar spine and left hip. The images are of good technical quality. Summary results are attached. FINDINGS: LEFT FEMUR, NECK: BMD 0.843 g/cm2, Z-score -0.2, T-score -1.4, osteopenia. LEFT FEMUR, TOTAL: BMD 0.911 g/cm2, Z-score 0.1, T-score -0.8, normal. AP SPINE L1-L4: BMD 1.053 g/cm2, Z-score 0.0, T-score -1.1, osteopenia. IDENTIFIED RISK FACTORS: Early menopause, hysterectomy, secondary osteoporosis. HISTORY OF FRACTURE: None listed. MEDICATIONS: Calcium, vitamin D. MM/XR DEXA axial skeleton IMPRESSION: 1. DIAGNOSIS: Osteopenia based on the lowest T-score value of -1.4 in the femoral neck applying World Health Organization criteria. 2. 10-YEAR FRACTURE RISK PREDICTION, FRAX: Major osteoporotic fracture (clinical spine, forearm, hip or shoulder) 6.9%. Hip fracture 0.5%. [facility] Medical History History of cystocele Hypothyroid Hypercholesterolemia Constipation by delayed colonic transit Celiac disease PTSD (post-traumatic stress disorder) ADHD Bipolar 1 disorder Surgical History Hx of colonoscopy (~2021) Hx of esophagogastroduodenoscopy History of breast augmentation History of appendectomy History of tonsillectomy H/O breast augmentation H/O: hysterectomy Social History Household Members: None Both parents involved: No Caregiver staying overnight: No Housing: Condominium Are you a primary laboratory animal care veterinarian to a significant other at home: No Do you presently have visiting nurse or other home services: No 75 years or older and lives alone: No Alcohol intake: never Patient Tobacco Use Status: Never used Tobacco e-Cigarette/Vaping Use: Never Used service: No 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 Labs from 01/17/2024 showed elevated calcium level of 11 with a albumin level of 4.5, corrected calcium would be 10.5, phosphorus normal at 3.4, magnesium normal at 2.3. Normal TSH of 0.97. Patient is on levothyroxine for hypothyroidism. Normal calcium levels back in 2019. Repeat labs 01/24/2024 showed high ionized calcium of 5.9, vitamin-D level of 60.7, PTH level inappropriately normal at 68.4. Repeat labs 02/26/2024 showed normal kidney function with a EGFR greater than 60, calcium of 9.1, ionized calcium 5.5, albumin of 4.3, vitamin-D level of 53.2, PTH of 100.7. She used to be on lithium for years which was stopped sometime in fall 2023, lithium can also result in high parathyroid hyperplasia. We agree with staying off lithium. She was also taking a lot of calcium through her diet plus supplements which could have worsened an underlying primary hyperparathyroidism possibly. She came off the supplements in the summer 2023, however was also told to do a low calcium diet. I asked her to maintain normal amounts of calcium in her diet 2-3 servings daily calcium rich foods were good bone health but to stop taking any calcium supplements. Her bone density in May 2023 showed osteopenia, no osteoporosis, she is greater than age 50, normal kidney function, no history of kidney stones, no hypercalciuria on 24 hour urine evaluation from April 2024, for now she is not meeting any surgical criteria if this is indeed primary hyperparathyroidism which is the most likely differential. Other possible differential could be FHH, however unlikely given that she has always had normal calcium levels in the past. However she does have history of kidney stones in family. Plus twenty 4 hour urine evaluation done in April 2024 showed fractional excretion of calcium was 0.009. I believe this is likely on the lower side because she has stopped having any calcium intake 2 weeks ago due to fear of hypercalcemia. Regardless since she is not meeting surgical criteria, at this point we will just continue to monitor her labs This is not secondary hyperparathyroidism given normal kidney function, vitamin-D levels are within reasonable range. She is now taking adequate amounts of vitamin-D supplements and calcium in her diet. Labs from September 2024 showed 09/20/24 showed normal kidney function with creatinine of 0.79, EGFR greater than 60, calcium 10.1, albumin 5, corrected calcium would be 9.1, ionized calcium mildly elevated at 5.6, normal phosphorus of 3, vitamin-D level good at 48.7, PTH elevated at 136.7 Plan: -She should maintain normal amount of calcium in her diet for overall good bone health. This would be 2-3 servings of calcium rich foods daily. -continue vitamin-D 800 units daily Advised to maintain good hydration. -repeat labs in 1 year prior to next visit -bone density ordered to be done in September 2025 prior to follow up in October 2025 -stay off lithium therapy -follow up in 1 year Plan See above Orders: Orders XR DEXA appendicular skeleton 09/19/25 E21.0 - Primary hyperparathyroidism, M85.80 - Other specified disorders of bone density and structure, unspecified site Albumin Level 09/19/25 E21.0 - Primary hyperparathyroidism, M85.80 - Other specified disorders of bone density and structure, unspecified site Calcium 09/19/25 E21.0 - Primary hyperparathyroidism, M85.80 - Other specified disorders of bone density and structure, unspecified site Vitamin D 25-OH Total 09/19/25 E21.0 - Primary hyperparathyroidism, M85.80 - Other specified disorders of bone density and structure, unspecified site Calcium, Ionized 09/19/25 E21.0 - Primary hyperparathyroidism, M85.80 - Other specified disorders of bone density and structure, unspecified site Creatinine 09/19/25 E21.0 - Primary hyperparathyroidism, M85.80 - Other specified disorders of bone density and structure, unspecified site Phosphorus 09/19/25 E21.0 - Primary hyperparathyroidism, M85.80 - Other specified disorders of bone density and structure, unspecified site Parathyroid Hormone Intact 09/19/25 E21.0 - Primary hyperparathyroidism, M85.80 - Other specified disorders of bone density and structure, unspecified site Patient Instructions: Do blood work and bone density scan prior to your next follow up with me in 1 year in October 2025. Someone should be calling you to schedule the bone density scan. The blood work orders should be in the lab already. Coding Level of Care Code Est Pt Level 3 (28896) Diagnoses Primary hyperparathyroidism E21.0
[2024-11-04 08:11] VITALS: BP 106/72; PULSE 57; O2SAT 97; BMI 22.6
== END 2024-11-04 08:24 | disposition home or self-care (01) ==
LOC: HO.ENCR 08:07
PROVIDERS: PCP Nurse Practitioner Family; Visit Provider Student in an Organized Health Care Education/Training Program
DX: E21.0 Primary hyperparathyroidism (principal)
CPT/HCPCS: 99213

== ENCOUNTER 2024-11-19 09:59 | Outpatient (RCR) | payer BC, SELFPAY ==
--- NOTE | 2024-09-09 13:25 | MHC.PT.EP ---
[facility] [place] [facility] [place] [facility] [place] [facility] [address] Faby Snyder [address] [phone] F: [phone] F: [phone] F: [phone] F: [phone] Physical Therapy Plan of Care Date of Evaluation: 09/09/24 Date of Surgery: N/A Diagnosis: left shoulder pain, neck pain (RL) Assessment: pt is a 58 y/o female presenting to physical therapy w/ referring diagnosis of left shoulder pain, neck pain. pt symptoms at this time seem muscular in nature. Will continue to monitor and refer as appropriate. Impairments include pain, decreased range of motion, decreased strength, impaired functional mobility, impaired postural awareness, and altered ambulation mechanics. pt is a good candidate for skilled PT due to age, potential remediation of impairments, typical disease/condition progression and prognosis, comorbidities, and motivation. pt would benefit from skilled PT intervention to provide a tailored strengthening and stretching exercise program, functional training, gait training, postural re-training, neuromuscular re-education, modalities as needed for pain, equipment safety demonstration. Frequency and Duration: The patient will be seen 2x/wk for 4 wks Short Term Goals: pt will be I w/ HEP to promote self-management of condition. pt will demo proper sitting posture w/ use of lumbar roll to promote neutral spine and shoulder position w/ seated ADLs. Dry Wall Plasterer Goals: pt will report a statistically significant improvement in self-reported outcome measure, NDI, to promote return to PLOF. pt will improve L shoulder flexion and abduction AROM by at least 15* to promote ease in reaching overhead. Treatment Plan: Modalities to reduce pain, spasms and effusion. Manual therapy to restore motion and function. Therapeutic exercise to improve strength and flexibility. Neuromuscular re-education for posture and balance. Therapeutic activities to return to functional activities of daily living. Electronically signed by: Jacqui De Leon PT, DPT Please sign and return to therapist. Thank you for your referral.
--- NOTE | 2024-11-19 10:42 | MHC.PT.DC ---
[facility] [place] Office [place] [facility] [place] [facility] [address] [phone] F: [phone] F: [phone] F: [phone] F: [phone] Physical Therapy Discharge Report Diagnosis: left shoulder pain, neck pain (RL) Date of Surgery: N/A Date of Evaluation: 09/09/24 Date of Discharge: 11/19/24 Treatments to Date: 14 Cancellations to Date: 4 No Shows to Date: 0 Discharge Status: Achieved Goals Independent with HEP Discharge Summary: The patient overall is reporting minimal to no neck or shoulder pain. She demonstrates functional shoulder and neck active range of motion. At this time, she has achieved all short term and salvage determiner goals established by this physical therapist. She is independent with her home exercise program and is discharged from this physical therapy plan of care. Electronically signed by: Jacqui De Leon PT, DPT Please sign and return to therapist. Thank you for your referral.
== END 2024-11-19 10:45 | disposition home or self-care (01) ==
LOC: HO.PT 09:59
PROVIDERS: PCP Nurse Practitioner Family; Visit Provider Nurse Practitioner Family
DX: M25.512 Pain in left shoulder (principal); M54.2 Cervicalgia
CPT/HCPCS: 97110; 97140; 97162; 97164; 97530

== ENCOUNTER 2024-12-23 13:15 | Outpatient (AMB) | payer BC, SELFPAY ==
--- NOTE | 2024-12-23 13:18 | MHC.PC.OV ---
Vital Signs 12/23/24 13:25 Height 5 ft 3 in Weight 123 lb BMI 21.8 BP 118/68 Blood Pressure Location Rt brachial Position Sitting Respiration 12 Pulse 78 Pulse Source Pulse Oximeter Temp 97.3 F Temp Source Oral Pulse Oximetry (%) 99 Oxygen Delivery Method Room Air Intake Visit Reasons: physical therapy f/u Intake Note: Follow up from Physical therapy and ED follow from [place]. 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 Allergies midazolam (From VERSED) Allergy (Intermediate, Verified 12/23/24 13:19) HYPERACTIVITY, increased hyperactivity hydromorphone (From Dilaudid) Allergy (Unknown, Verified 12/23/24 13:19) ITCHING Medication List - Last Reconciled 12/23/24 by Sarah Lugo, [employer]URE [employer]ER- bisacodyl 20 mg PO BEDTIME carbamazepine 200 mg PO BID cholecalciferol (vitamin D3) 20 mcg PO DAILY dextroamphetamine-amphetamine 30 mg ER (Adderall XR) 30 mg PO DAILY docusate sodium (Colace) 100 mg PO DIRECTED estradiol 0.01%(0.1mg/gram) vaginal hyoscyamine sulfate 0.125 - 0.25 mg sublingual Q4-6H PRN lactobacillus combination no.4 (Probiotic) 3,000 mmu cells PO DAILY lamotrigine (Lamictal) 200 mg PO DIRECTED levothyroxine 75 mcg (1.5 x 50 mcg) PO DAILY 90 days lorazepam 1 mg PO DIRECTED melatonin 10 mg PO BEDTIME PRN simvastatin 40 mg PO BEDTIME 90 days temazepam 30 mg PO BEDTIME valacyclovir (Valtrex) 500 mg PO BID 10 days Tobacco use date assessed: 12/23/24 Dental Screening Dental Screen Date: 12/23/24 Did you have a dental visit in the last 12 months?: Yes Did you have a dental problem in the last 6 months where you did not have access to dental care?: No Was dental information given to patient?: Patient has dentist HPI HPI Comments History of Present Illness Details 59-year-old female with bipolar disorder, cathartic colon, fecal incont, hyperlipidemia, hypothyroidism, osteopenia, mild ascending aorta dilation, primary hyperparathyroidism, hepatic cyst, ADHD, hx of cold sores s/p breast augmentation, hyterectomy, appy, tonsillectomy Health Maintenance: Flu 12/2024 Mammo 03/2024 DEXA [address] [facility] Wakefield GI Dr Pedraza and [facility] Leo History of Present Illness The patient is a 59-year-old female presenting for a follow-up visit regarding physical therapy and a recent hospital discharge. Left Arm Pain: - The patient initially presented with left arm tingling and shoulder pain & assoc neck pain in August 2024, which prompted physical therapy from September to November. - While physical therapy and stretching exercises resolved some issues, she has persistent, specific pain in the deltoid area that has worsened since stopping therapy. - The pain is described as excruciating and is triggered by reaching back or overhead. - She reports that the pain has limited her activities of daily living, such as dressing. - The patient denies current numbness or tingling. - An attempt to get an MRI was previously made but was denied by insurance. Viral Colitis: - The patient was seen in an emergency room in [place] for acute abdominal pain and was diagnosed with viral colitis. - Her workup included a CT scan and both transvaginal and abdominal ultrasounds, which could not visualize her ovaries due to swelling. - Following the illness, she developed a fear of eating, leading to an unintentional weight loss of 20 pounds (from 140 lbs to 120 lbs). - She was subsequently prescribed Hyoscyamine for persistent intestinal symptoms by Dr Wakefield Emotional Dysregulation, Anxiety, PTSD, and ADHD: - The patient's recent medical issues precipitated a significant mental health crisis, characterized by depression, paranoia, and poor oral intake. - Her psychiatrist recommended DBT and CBT groups, but she found the format unhelpful and anxiety-provoking, citing difficulties focusing due to her ADHD. - Her psychologist subsequently changed her plan of care, diagnosing emotional dysregulation secondary to her underlying ADHD, PTSD, and anxiety. - A recent stressor includes her 's diagnosis of prostate cancer & osteosarcoid Past Medical History - Hyperparathyroidism with chronically elevated calcium levels - Osteopenia - Attention-deficit/hyperactivity disorder (ADHD) - Post-traumatic stress disorder (PTSD) - Anxiety - Viral colitis Review of Systems - Musculoskeletal: Reports excruciating pain in the left deltoid area when reaching back or overhead. Denies numbness or tingling. - Gastrointestinal: Reports fear of eating due to a recent history of viral colitis. Reports intestinal cramping and pain in the perianal area when sitting. Denies new acute abdominal pain. - Psychiatric: Reports depression, anxiety, crying spells, and paranoia. She describes feeling emotionally dysregulated. - Constitutional: Reports an unintentional 20-pound weight loss. - Respiratory: Denies difficulty breathing. - Cardiovascular: Denies chest pain or other cardiac symptoms. Physical Exam General: Well developed, well nourished, in no acute distress. Appears stated age. Head: Normocephalic, atraumatic. Eyes: Pupils are equal, round and reactive to light and accommodation. Conjunctivae are clear. Scleras nonicteric bilat Heart: Regular rate and rhythm. No murmurs, click, rubs or gallops are noted. Abdomen: Bowel sounds hypoactive in all quadrants. The abdomen is soft, nontender, with no masses or organomegaly noted. No hernias are noted. Musculoskeletal: Joints are nontender, without swelling, redness, or effusions. Patient reports excruciating pain in the left deltoid area at the insertion of the brachialis when reaching back or above the head, she also has pain with light touch to this area. Otherwise the L arm is neurvasc intact w/o obvious deformity. Pulses: Peripheral pulses are equal and palpable bilaterally. Extremities: No clubbing, cyanosis nor edema is noted. Psych: Mood and affect appropriate, although patient reports emotional dysregulation due to ADHD, PTSD, and anxiety. Results See below Medical Decision Making The patient is a 59-year-old female with a complex medical and psychiatric history presenting for follow-up on two main issues. Her primary complaint is a persistent, localized left deltoid pain that is exacerbated by specific movements and has worsened despite a course of physical therapy. Given the failure to improve with conservative management and the specific nature of the pain an MRI of the left humerus is the appropriate next diagnostic step, particularly as the prerequisite of physical therapy has been met, which should support insurance authorization. Her second issue is the sequelae of a recent hospitalization for viral colitis, which has resulted in significant anxiety, fear of eating, and a 20-pound weight loss. This has exacerbated her underlying emotional dysregulation, PTSD, anxiety, and ADHD. Her care is appropriately being managed by her psychologist and psychiatrist, and the plan is to support her continued engagement with her mental health team. The order for the MRI will include her comorbid diagnoses of hyperparathyroidism and osteopenia for the radiologist's awareness. Plan 1. Left Arm Pain - The patient presents with persistent and worsening left arm pain localized to the deltoid, which has not improved with physical therapy. - An MRI of the left humerus will be ordered to investigate for a possible structural cause, such as a tear. - The order will document the prior course of physical therapy to facilitate insurance approval. - The MRI will be ordered without contrast. 2. Follow-Up For Viral Colitis - The patient is recovering from viral colitis diagnosed in the ER, which has led to significant weight loss and fear of eating. - She is taking Hyoscyamine as prescribed by Dr Wakefield for abdominal cramping. - Her ongoing care will focus on managing the psychological sequelae of this illness through her established mental health providers. 3. Emotional Dysregulation, Anxiety, Ptsd, And Adhd - The patient's mental health conditions have been exacerbated by recent medical issues and life stressors. - Her psychologist has adjusted her treatment plan to focus on emotional dysregulation, and the patient will continue to follow up with her mental health team. Patient Instructions - An MRI of your left arm will be ordered to figure out why you are having pain. Please schedule this test. - Continue to take your medication for stomach cramping (Hyoscyamine) as prescribed. - Keep your follow-up appointments with your psychologist and psychiatrist to help manage your stress, anxiety, and emotions. Consent Patient was informed and verbally consented to the use of an ambient scribe for clinic note documentation during this visit. Total time spent caring for the patient today was 69 minutes. This includes time spent before the visit reviewing the chart, time spent during the visit, and time spent after the visit on documentation, reviewing laboratory results, diagnostic imaging, medications, performing a medically necessary evaluation, counseling on diagnoses, care coordination, ordering appropriate tests, ordering appropriate medications, review of tests performed by other providers, reporting test results with the patient, communication with other healthcare providers. [facility] Medical History History of cystocele Hypothyroid Hypercholesterolemia Constipation by delayed colonic transit Celiac disease PTSD (post-traumatic stress disorder) ADHD Bipolar 1 disorder Surgical History Hx of colonoscopy (~2021) Hx of esophagogastroduodenoscopy History of breast augmentation History of appendectomy History of tonsillectomy H/O breast augmentation H/O: hysterectomy Social History Household Members: None Both parents involved: No Caregiver staying overnight: No Housing: Condominium Are you a primary intensive care ambulance paramedic to a significant other at home: No Do you presently have visiting nurse or other home services: No 75 years or older and lives alone: No Alcohol intake: never Patient Tobacco Use Status: Never used Tobacco e-Cigarette/Vaping Use: Never Used Second Hand Smoke Exposure: No service: No 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 1. Little interest or pleasure in doing things: not at all 2. Feeling down, depressed, or hopeless: not at all 3. Trouble falling or staying asleep, or sleeping too much: not at all 4. Feeling tired or having little energy: not at all 5. Poor appetite or overeating: not at all 6. Feeling bad about yourself - or that you are a failure or have let yourself or your family down: not at all 7. Trouble concentrating on things, such as reading the newspaper or watching television: not at all 8. Moving or speaking so slowly that other people could have noticed. Or the opposite - being so fidgety or restless that you have been moving around a lot more than usual: not at all 9. Thoughts that you would be better off or of hurting yourself in some way: not at all Total score: 0 Depression Screening Interpretation: Negative Depression Screening Done: Yes 79048 - PHQ-9 Billing: Yes Source: Developed by Drs. Meng Sosa, Elen Guzman, Tamir Mendes and colleagues, with an educational dorota from [employer]. Thrive Questionnaire Date Thrive assessed: 12/23/24 I am a: Patient What is your living situation today?: I have a steady place to live Within the past 12 months, did the food you bought not last and you didn't have the money to get more?: Never true Within the past 12 months, did you worry whether your food would run out before you got money to buy more?: Never true Do you have trouble paying for medicines?: No Do you have trouble getting transportation to medical appointments?: No Do you have trouble paying your heating and electricity bill?: No Do you have trouble taking care of your child, family member or friend?: No Do you have trouble with day-to-day activities such as bathing, preparing meals, shopping, managing finances, etc.?: I choose not to answer this question Are you currently unemployed and looking for a job?: No Are you interested in more education?: No Please select the resources that you would like help with: None Currently or been in a relationship where the following occur: No concerns reported THRIVE Score: 0 ADIS-7 AMB Questionnaire ADIS-7 Date ADIS - 7 assessed: 12/23/24 Feeling nervous, anxious, or on edge: 0 = Not at all Not being able to stop or control worryin = Not at all Worrying too much about different things: 0 = Not at all Trouble relaxin = Not at all Being so restless that it is hard to sit still: 0 = Not at all Becoming easily annoyed or irritable: 0 = Not at all Feeling afraid as if something awful might happen: 0 = Not at all Total ADIS-7 score (0-4 normal; 5-9 mild; 10-14 moderate; 15-21 severe): 0 Source: Developed by Drs. Meng Sosa, Elen Guzman, Tamir Mendes and colleagues, with an educational dorota from [employer]. ADIS-7 Assessment Billing ADIS-7 Assessment Tool: ADIS-7 Assessment 31953 Physical exam (Primary Care) Vital Signs: Last Vital Signs Temp 97.3 F 12/23/24 13:25 Pulse 78 12/23/24 13:25 Resp 12 12/23/24 13:25 BP 118/68 12/23/24 13:25 Pulse Ox 99 12/23/24 13:25 Oxygen Delivery Method Room Air 12/23/24 13:25 BMI result Body Mass Index 21.8 Tobacco/Smoking Status: Tobacco use Status Tobacco use date assessed 12/23/24 12/23/24 13:21 Patient Tobacco Use Status Never used Tobacco 12/23/24 13:21 e-Cigarette/Vaping Use Never Used 12/23/24 13:21 PHQ-9: PHQ-9 Score PHQ-9: Total score 0 12/23/24 13:21 Depression Screening Interpretation: Negative Thrive Assessment: Date of Thrive Assessment Date Thrive assessed 12/23/24 12/23/24 13:21 Currently or been in a relationship where the following occur: No concerns reported Results Reviewed Results Reviewed: Coding Level of Care Code Est Pt Level 5 (04151) Complex EM visit Add On G2211 Diagnoses Pain of left deltoid M79.18 Hospital discharge follow-up Z09 Viral colitis A08.4 Osteopenia M85.80 Primary hyperparathyroidism E21.0 Weight loss R63.4 CPT Codes [facility] OUTPT/OFFICE VIS - G2212 Additional Codes ADIS-7 Assessment Billing - ADIS-7 Assessment Tool: ADIS-7 Assessment 99840 ([id number]) PHQ-9 - 62263 - PHQ-9 Billing: Yes ([id number]) Assessment & Plan Assessment & Plan (1) Pain of left deltoid: Code(s): M79.18 - Myalgia, other site Category: Medical (2) Hospital discharge follow-up: Code(s): Z09 - Encounter for follow-up examination after completed treatment for conditions other than malignant neoplasm (3) Viral colitis: Code(s): A08.4 - Viral intestinal infection, unspecified (4) Osteopenia: Code(s): M85.80 - Other specified disorders of bone density and structure, unspecified site Category: Medical (5) Primary hyperparathyroidism: Code(s): E21.0 - Primary hyperparathyroidism Category: Medical (6) Weight loss: Code(s): R63.4 - Abnormal weight loss Category: Medical Plan . Orders: Orders MR humerus LT w con Today E21.0 - Primary hyperparathyroidism, M79.18 - Myalgia, other site, M85.80 - Other specified disorders of bone density and structure, unspecified site
[2024-12-23 13:25] VITALS: BP 118/68; PULSE 78; RESP 12; TEMP 36.3; O2SAT 99; BMI 21.8
== END 2024-12-23 14:11 | disposition home or self-care (01) ==
PROVIDERS: PCP Nurse Practitioner Family; Visit Provider Nurse Practitioner Family
DX: M79.18 Myalgia, other site (principal); M85.80 Other specified disorders of bone density and structure, unspecified site; A08.4 Viral intestinal infection, unspecified; R63.4 Abnormal weight loss; E21.0 Primary hyperparathyroidism

== ENCOUNTER 2024-12-23 13:15 | Outpatient (AMB) | payer BC, SELFPAY ==
--- NOTE | 2024-12-23 13:30 | MHC.PC.OV ---
Intake Visit Reasons: er fu Allergies midazolam (From VERSED) Allergy (Intermediate, Verified 12/23/24 13:19) HYPERACTIVITY, increased hyperactivity hydromorphone (From Dilaudid) Allergy (Unknown, Verified 12/23/24 13:19) ITCHING Tobacco use date assessed: 12/23/24 Dental Screening Dental Screen Date: 12/23/24 HPI HPI Comments [facility] Medical History History of cystocele Hypothyroid Hypercholesterolemia Constipation by delayed colonic transit Celiac disease PTSD (post-traumatic stress disorder) ADHD Bipolar 1 disorder Surgical History Hx of colonoscopy (~2021) Hx of esophagogastroduodenoscopy History of breast augmentation History of appendectomy History of tonsillectomy H/O breast augmentation H/O: hysterectomy Social History Household Members: None Both parents involved: No Caregiver staying overnight: No Housing: Condominium Are you a primary healthcare market consultant to a significant other at home: No Do you presently have visiting nurse or other home services: No 75 years or older and lives alone: No Alcohol intake: never Patient Tobacco Use Status: Never used Tobacco e-Cigarette/Vaping Use: Never Used Second Hand Smoke Exposure: No service: No 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 needs: No Hearing needs: Yes Vision needs: No Questionnaire Thrive Questionnaire Date Thrive assessed: 12/23/24 I am a: Patient What is your living situation today?: I have a steady place to live Within the past 12 months, did the food you bought not last and you didn't have the money to get more?: Never true Within the past 12 months, did you worry whether your food would run out before you got money to buy more?: Never true Do you have trouble paying for medicines?: No Do you have trouble getting transportation to medical appointments?: No Do you have trouble paying your heating and electricity bill?: No Do you have trouble taking care of your child, family member or friend?: No Do you have trouble with day-to-day activities such as bathing, preparing meals, shopping, managing finances, etc.?: I choose not to answer this question Are you currently unemployed and looking for a job?: No Are you interested in more education?: No Please select the resources that you would like help with: None Currently or been in a relationship where the following occur: No concerns reported THRIVE Score: 0 ADIS-7 AMB Questionnaire ADIS-7 Date ADIS - 7 assessed: 12/23/24 Source: Developed by Drs. Meng Sosa, Elen Guzman, Tamir Mendes and colleagues, with an educational dorota from [employer]. Physical exam (Primary Care) Tobacco/Smoking Status: Tobacco use Status Tobacco use date assessed 08/16/24 08/16/24 13:39 Patient Tobacco Use Status Never used Tobacco 08/16/24 13:39 e-Cigarette/Vaping Use Never Used 08/16/24 13:39 Thrive Assessment: Date of Thrive Assessment Date Thrive assessed 08/16/24 11/01/24 11:59 Currently or been in a relationship where the following occur: No concerns reported Coding Level of Care Code Admin Sign Off/No Billing Diagnoses Hospital discharge follow-up Z09 Assessment & Plan Assessment & Plan (1) Hospital discharge follow-up: Code(s): Z09 - Encounter for follow-up examination after completed treatment for conditions other than malignant neoplasm Plan .
== END 2024-12-23 13:31 | disposition home or self-care (01) ==
LOC: HO.HMCFM 13:16
PROVIDERS: PCP Nurse Practitioner Family; Visit Provider Nurse Practitioner Family
DX: Z09 Encounter for follow-up examination after completed treatment for conditions other than malignant neoplasm (principal)

== ENCOUNTER → 2024-12-23 13:15 | Outpatient (BNVA) | payer BC, SELFPAY | PROVIDERS: PCP Nurse Practitioner Family; Visit Provider Nurse Practitioner Family | DX: M79.602 Pain in left arm (principal); F31.9 Bipolar disorder, unspecified; E78.5 Hyperlipidemia, unspecified; E03.9 Hypothyroidism, unspecified; F41.9 Anxiety disorder, unspecified; F43.10 Post-traumatic stress disorder, unspecified; F90.9 Attention-deficit hyperactivity disorder, unspecified type; M79.18 Myalgia, other site; M85.80 Other specified disorders of bone density and structure, unspecified site; E21.0 Primary hyperparathyroidism; R63.4 Abnormal weight loss; Z09 Encounter for follow-up examination after completed treatment for conditions other than malignant neoplasm; Z87.19 Personal history of other diseases of the digestive system | CPT/HCPCS: 96127 ==

== ENCOUNTER 2025-01-07 11:56 | Outpatient (AMB) | payer BC, SELFPAY ==
--- NOTE | 2025-01-07 12:02 | MHC.OFFWIV ---
Intake Vital Signs 01/07/25 12:03 Height 5 ft 3 in Weight 125 lb BMI 22.1 BP 128/70 Blood Pressure Location Lt brachial Position Sitting Respiration 14 Pulse 85 Pulse Source Pulse Oximeter Temp 97.9 F Temp Source Oral Pulse Oximetry (%) 99 Oxygen Delivery Method Room Air Intake Visit Reasons: EP-lt neck, shoulder, arm pain Intake Note: pt presents with radiating left arm, shoulder, under left breast area and neck pain after a fall from April, pt states she attended PT from october to november, MRI pending Patient Tobacco Use Status: Never used Tobacco Allergies midazolam (From VERSED) Allergy (Intermediate, Verified 01/07/25 12:10) HYPERACTIVITY, increased hyperactivity hydromorphone (From Dilaudid) Allergy (Unknown, Verified 01/07/25 12:10) ITCHING Do you need a note to return to daycare/school/sports/work: No HPI HPI Comments History of Present Illness Details History of Present Illness - The patient is a 59 year old individual presenting with left arm and shoulder pain. - The patient reports injuring the arm in April after falling twice on ice. - The pain has been persistent and is progressively worsening, with the patient describing it as excruciating and constant. - The pain is localized to the left arm, which the patient notes the upper muscle in her arm has become atrophied, with shooting pains into the scapula, under the breast, and up the neck. - Symptoms are worse in the morning and at the end of the day, frequently causing the patient to wake from sleep in excruciating pain. - Activities such as reaching for a seatbelt exacerbate the pain. - The patient has tried Motrin, Tylenol, ice, and heat without relief. - A course of 3 months of physical therapy resolved previous numbness and tingling in the hands and fingers but provided no improvement in left arm and shoulder pain or range of motion. - The patient is post-menopausal and does not use external estrogen. - An MRI has been ordered but is pending insurance approval. [facility] Medical History History of cystocele Hypothyroid Hypercholesterolemia Constipation by delayed colonic transit Celiac disease PTSD (post-traumatic stress disorder) ADHD Bipolar 1 disorder Surgical History Hx of colonoscopy (~2021) Hx of esophagogastroduodenoscopy History of breast augmentation History of appendectomy History of tonsillectomy H/O breast augmentation H/O: hysterectomy Social History Household Members: None Both parents involved: No Caregiver staying overnight: No Housing: Condominium Are you a primary critical care registered nurse to a significant other at home: No Do you presently have visiting nurse or other home services: No 75 years or older and lives alone: No Alcohol intake: never Patient Tobacco Use Status: Never used Tobacco e-Cigarette/Vaping Use: Never Used Second Hand Smoke Exposure: No service: No 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 - Musculoskeletal: Reports pain radiating to the left scapula, submammary region, and neck. - Musculoskeletal: Reports a sensation of a bump with arm movement. - Musculoskeletal: Reports the left arm feels smaller than the right. - Neurological: Reports a history of numbness and tingling in the hands and fingers, which has resolved. - Constitutional: Reports sleep disruption due to pain. - Endocrine: Reports being post-menopausal for years and denies use of external estrogen. All systems reviewed and are unremarkable except as noted in HPI Physical Exam Exam Exam: Physical Exam General: Cooperative, healthy appearing, comfortable, no acute distress and well developed Orientation: Patient oriented x3 Limitations: Limited range of motion in the left shoulder Head: Normal to inspection Ears: Hearing grossly normal bilaterally Nose: Normal External nose present Face and sinus: Normal facial exam Eyes: Appearance normal, both eyes and all related structures Neck: Normal visual inspection, full ROM, no TTP cervical spine, TTP left paraspinous and left trapezius into left rhomboid Respiratory: Normal respiratory effort and able to speak in complete sentences. Skin: No rashes or lesions noted Neuro: Patient oriented x3 Extremities: TTP left biceps insertion point, TTP AC joint area, negative empty can, unable to invert and lift off left shoulder, can abduct to 90 degrees; full range of motion in the elbow, left wrist, left hand and fingers, NVI. palpable deficit along tricept and bicepts muscles. Vital Signs: Last Vital Signs Temp 97.9 F 01/07/25 12:03 Pulse 85 01/07/25 12:03 Resp 14 01/07/25 12:03 BP 128/70 01/07/25 12:03 Pulse Ox 99 01/07/25 12:03 Oxygen Delivery Method Room Air 01/07/25 12:03 BMI result Body Mass Index 22.1 Assessment & Plan Assessment & Plan (1) Left shoulder pain: Code(s): M25.512 - Pain in left shoulder Qualifiers: Chronicity: chronic Qualified Code(s): M25.512 - Pain in left shoulder; G89.29 - Other chronic pain (2) Strain of other muscles, fascia and tendons at shoulder and upper arm level, left arm, initial encounter: Code(s): S46.812A - Strain of other muscles, fascia and tendons at shoulder and upper arm level, left arm, initial encounter Plan Patient was informed and verbally consented to the use of an ambient scribe for clinic note documentation during this visit. - The differential diagnosis for the patient's chronic and worsening left shoulder pain includes rotator cuff injury (tear or impingement), and acromioclavicular joint pathology, adhesive capsulitis (frozen shoulder) particularly given the patient's post-menopausal status and history of trauma. Also concern for triceps and/or biceps rupture with deficit along muscles. - The patient has failed conservative management including NSAIDs, Tylenol, ice, heat, and physical therapy. - An x-ray of the left shoulder and left humerus will be obtained today to evaluate for occult fracture, acromioclavicular separation, or other bony abnormalities. - An MRI of the shoulder ordered by her PCP is pending insurance authorization. - A muscle relaxant will be prescribed to alleviate associated likely muscle spasms in the neck and back. - The patient will undergo the x-ray and then return to the room to discuss the results and finalize the plan of care. - My interpretation of the left shoulder XR and left humerus XR are no acute fracture or dislocation. - Sling provided for comfort, pt aware she needs to do full range of motion excercises twice daily so as not to develop adhesive capsulitis. Remove sling at night. - Sent note to her PCP for follow up on MRI, possibly add left upper arm MRI as pt in pain and very TTP with deficit along triceps. Orders: Orders XR shoulder LT min 2V Today G89.29 - Other chronic pain, M25.512 - Pain in left shoulder XR humerus LT Today M79.622 - Pain in left upper arm Medications: New baclofen 20 mg PO BEDTIME 10 tabs 0RF meloxicam do not take other NSAIDS while taking this medication 15 mg PO DAILY PRN 15 tabs 0RF pain, moderate Coding Level of Care Code Est Pt Level 4 (40629) Diagnoses Chronic left shoulder pain M25.512; G89.29 Chronicity: chronic Strain of other muscles, fascia and tendons at shoulder and upper arm level, left arm, initial encounter S46.766P
[2025-01-07 12:03] VITALS: BP 128/70; PULSE 85; RESP 14; TEMP 36.6; O2SAT 99; BMI 22.1
--- OUTSIDE RECORDS SUMMARY | 2025-01-07 14:06 | XMS_ITS | Clinical Summary ---
Author Organization [facility] Address [address] [place] [id number] Phone Care Team Providers Care Plastic Process Technician Name Role Phone Sarah Loredo ASSISTANT PROJECT ENGINEER Primary Care Provider Allergies Active Allergy Reactions [...] 1 mg by mouth daily before breakfast. 5 Active magnesium glycinate 100 mg Tab Active melatonin 5 mg Cap Take 5 mg by mouth nightly at bedtime. 2 tabs Active mirtazapine (REMERON) 30 MG tablet Take 45 mg by mouth nightly at bedtime. Active simvastatin (ZOCOR) 40 MG tablet Take 40 mg by mouth nightly at bedtime. Active Social History Tobacco Use Types Packs/Day Years [...] Mass Index - - Plan of Treatment Upcoming Encounters Date Type Department Care Team (Late st Contact Info) Description 03/18/2025 11:00 AM EST Office Visit [facility] [address] [place] [address], [address] [place] [address] Jarred Cardona MD, MPH [address] [place] [phone] [email or web address] Health Maintenance Due Date Last Done Comments [...] 2016 ZOSTER VACCINES (1 of 2) 2016 INFLUENZA VACCINE (#1) 2024 COVID-19 VACCINE (1 - 2024-2 6 season) 2024 RSV VACCINE (1 - 1-dose 75+ series) 2041 SMOKING STATUS SCREENING (On ce After 26 [...] topic Medical Devices Not on file Insurance [facility] Care Teams Plastic Process Technician Relationship Specialty Start Date End Date Sarah Loredo NP [address] [place] [address] [email or web address] PCP - General Nurse Practitioner 04/25/24 Additional Source Comments The information contained in this document represents components of the legal health record. It is not the complete legal health record.[facility]
--- OUTSIDE RECORDS SUMMARY | 2025-01-07 14:06 | XMS_ITS | Clinical Summary ---
Author Organization [facility] Address [address] [place] [id number] Care Team Providers Care Bottle Hop Name Role Phone Ariadna Cervantes DO Primary Care Provider [phone] Allergies Active Allergy Reactions Criticality Noted Date [...] (attention deficit hyperactivity disorder) Overview: Seen at [facility] Immunizations Name Administration Dates Next Due [...] age to complete this topic Care Teams Bottle Hop Relationship Specialty Start Date End Date Ariadna Cervantes DO PCP - General Family Medicine 05/09/17
== END 2025-01-07 13:57 | disposition home or self-care (01) ==
PROVIDERS: PCP Nurse Practitioner Family; Visit Provider Physician Assistant
DX: M25.512 Pain in left shoulder (principal); G89.29 Other chronic pain; S46.812A Strain of other muscles, fascia and tendons at shoulder and upper arm level, left arm, initial encounter

== ENCOUNTER 2025-01-07 11:56 | Outpatient (REF) | payer BC, SELFPAY ==
--- NOTE | ~2025-01-07 | XR_ITS ---
EXAMINATION: XR HUMERUS, LEFT CLINICAL INFORMATION: M79.622 - Pain in left upper arm COMPARISON: Left shoulder from the same day TECHNIQUE: AP and lateral views of the left humerus. FINDINGS: The bones and soft tissues are normal. No fracture. Imaged portions of the shoulder and elbow are unremarkable. XR/XR humerus LT IMPRESSION: Normal left humerus. Electronically signed by: Jazmín Best MD 01/07/2025 01:38 PM EST
--- NOTE | ~2025-01-07 | XR_ITS ---
EXAMINATION: XR SHOULDER, LEFT CLINICAL INFORMATION: M25.512 - Pain in left shoulder COMPARISON: None available. TECHNIQUE: Three views of the left shoulder. FINDINGS: Normal bone mineralization. No fracture, dislocation, or suspicious bone lesion. Normal alignment. The glenohumeral joint is normal. The AC joint is normal. There is a type II acromion. No undersurface spurring. The subacromial space is preserved. Remainder of the soft tissue and bony structures appear normal. XR/XR shoulder LT min 2V IMPRESSION: Normal left shoulder. Electronically signed by: Ajith Olsen MD 01/07/2025 01:37 PM EST
== END 2025-01-07 11:57 | disposition home or self-care (01) ==
LOC: HO.HMGCX 11:56
PROVIDERS: PCP Nurse Practitioner Family; Visit Provider Physician Assistant
DX: S46.812A Strain of other muscles, fascia and tendons at shoulder and upper arm level, left arm, initial encounter (principal); W00.0XXA Fall on same level due to ice and snow, initial encounter
CPT/HCPCS: 73030; 73060

== ENCOUNTER → 2025-01-07 13:18 | Outpatient (BNV) | payer BC, SELFPAY | PROVIDERS: PCP Nurse Practitioner Family; Visit Provider Radiology Diagnostic Radiology | DX: M25.512 Pain in left shoulder (principal); M79.622 Pain in left upper arm | CPT/HCPCS: 73030; 73060 ==